=== PATIENT | male | born 1945 | race Caucasian/White ===

== ENCOUNTER 2019-07-30 04:40 | Outpatient (CLI) | payer OTHER | END 2019-07-30 04:41 | disposition critical access hospital (66) | LOC: EMS 04:40 | PROVIDERS: ATTEND Surgery | DX: R06.02 Shortness of breath (principal); R19.7 Diarrhea, unspecified; R60.0 Localized edema | CPT/HCPCS: A0425; A0427 ==

== ENCOUNTER 2019-07-30 04:58 | Inpatient (IN) | payer OTHER ==
--- NOTE | 2019-07-30 05:16 | ED Physician Documentation ---
PD HPI DYSPNEA - Stated complaint Stated Complaint: SOA/ COUGH/ - Chief complaint Chief Complaint: Resp - History obtained from History obtained from: Patient, EMS - History of Present Illness Timing - onset: How many weeks ago (2) Timing - onset during: Rest Timing - duration: Weeks (2) Timing - details: Gradual onset, Still present Inciting event(s): URI Improved by: Steroids Worsened by: Exertion, Coughing Associated symptoms: Cough, Bilateral edema, Other (weakness) Similar symptoms before: Diagnosis (COPD and pneumonia) Recently seen: Other (prescribed prednisone 10 days ago.) - Additional information Additional information: 74-year-old male with a history of COPD began to develop an exacerbation and called his doctor was started on some prednisone about 10 days ago he took it for about 4 or 5 days developed quite a bit of swelling in his lower extremities and discontinue the use of it. He has now developed progressive weakness and shortness of breath as well as profuse diarrhea. He has so much weakness that he is unable to care for himself at home. He does state that he was able to keep up on his fluids during this time but otherwise not able to care for himself. The patient reports his alcohol use as 2 shots of [place] daily and he states that over the past 4 days she has not had anything and last night he had 3 shots. Review of Systems Constitutional: reports: Fatigue, Sweats. denies: Fever, Chills Eyes: denies: Decreased vision Ears: denies: Ear pain Nose: reports: Rhinorrhea / runny nose, Congestion Throat: reports: Sore throat Cardiac: reports: Pedal edema. denies: Chest pain / pressure, Palpitations Respiratory: reports: Dyspnea, Cough GI: reports: Diarrhea. denies: Abdominal Pain, Nausea, Vomiting : denies: Dysuria, Frequency PD PAST MEDICAL HISTORY - Past Medical History Past Medical History: Yes Cardiovascular: Deep vein thrombosis, Pulmonary embolism Respiratory: COPD Neuro: None Endocrine/Autoimmune: None GI: GERD, Chronic diarrhea : None HEENT: None Psych: Depression, Post traumatic stress disorder Musculoskeletal: Osteoporosis Derm: Rosacea - Past Surgical History Past Surgical History: Yes General: Appendectomy, Splenectomy HEENT: Tonsil/Adenoidectomy - Present Medications Home Medications: Ambulatory Orders Medication Instructions Recorded Confirmed Albuterol Sulfate 90 mcg IH QID 02/03/13 07/30/19 Amlodipine Besylate 10 mg PO BID 02/03/13 07/30/19 Atenolol [Tenormin] 50 mg PO DAILY 02/03/13 07/30/19 Bupropion HCl 75 mg PO BID 02/03/13 07/30/19 Calcium Carbonate/Vitamin D3 2 each PO BID 02/03/13 07/30/19 [Calcium 250+D Tablet] Ipratropium/Albuterol [Duoneb] 3 ml INH QID 02/03/13 07/30/19 Loratadine [Children's 10 mg PO DAILY 02/03/13 07/30/19 Clear-Atadine] Montelukast [Singulair] 10 mg PO DAILY 02/03/13 07/30/19 Niacin [Niaspan] 500 mg PO TID 02/03/13 07/30/19 Warfarin [Coumadin] 3 mg PO 1700 02/03/13 07/30/19 Budesonide/Formoterol Fumarate 2 puffs INH BID 07/30/19 07/30/19 [Symbicort 160-4.5 Mcg Inhaler] Cholecalciferol (Vitamin D3) 1,000 unit PO DAILY 07/30/19 07/30/19 [Vitamin D3] Cyanocobalamin (Vitamin B-12) 1,000 mcg PO DAILY 07/30/19 07/30/19 [Vitamin B-12] Docusate Sodium [Dss] 250 mg PO BID 07/30/19 07/30/19 Fluticasone 110 Mcg [Flovent] 2 spray INH DAILY 07/30/19 07/30/19 Magnesium Oxide,Aspartate,Citr 420 mg PO BID 07/30/19 07/30/19 [Triple Magnesium Complex] Sildenafil Citrate 100 mg PO PRN PRN 07/30/19 07/30/19 Tiotropium [place] [Spiriva] 18 mcg INH DAILY 07/30/19 07/30/19 predniSONE [Deltasone] 20 mg PO DAILY 07/30/19 07/30/19 - Allergies Allergies/Adverse Reactions: Allergies Allergy/AdvReac Type Severity Reaction Status Date / Time No Known Drug Allergies Allergy Verified 07/30/19 05:12 - Social History Does the pt smoke?: No Smoking Status: Never smoker Does the pt drink ETOH?: No Does the pt have substance abuse?: No - Immunizations Immunizations are current?: Yes - POLST Patient has POLST: No POLST Status: Full Code PD ED PE NORMAL - Vitals Vital signs reviewed: Yes (tachy ) - General General: Alert and oriented X 3, Well developed/nourished, Other (appears dyspnic at rest is pale but interactive He is covered in feces. ) - HEENT HEENT: Atraumatic, PERRL, EOMI, Ears normal, Other (dry mucous membranes There is blood on the patients teeth. ) - Neck Neck: Supple, no meningeal sign, No bony TTP - Cardiac Cardiac: No murmur, Other (tachy ) - Respiratory Respiratory: Other (tachypneic at rest with rhonchi in the bases. Fair air movement. ) - Abdomen Abdomen: Soft, Non tender - Back Back: No CVA TTP, No spinal TTP - Derm Derm: Normal color, Warm and dry, No rash - Extremities Extremities: No deformity, Other (There is bilateral edema pitting present and there is feces streaming down the legs. There is the appearance of compression erythema to the left lateral calf and the right upper lateral arm. 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, No motor deficit, No sensory deficit, Normal speech Eye Opening: Spontaneous Motor: Obeys Commands Verbal: Oriented GCS Score: 15 - Psych Psych: Normal mood, Normal affect Results - Vitals Vitals: Vital Signs - 24 hr 07/30/19 07/30/19 07/30/19 04:53 05:08 05:32 Temperature 36.5 C Heart Rate 129 H 120 H 117 H Respiratory 22 22 22 Rate Blood Pressure 127/72 97/74 O2 Saturation 93 96 96 07/30/19 07/30/19 05:54 06:20 Temperature Heart Rate 110 H 111 H Respiratory 18 22 Rate Blood Pressure 106/67 O2 Saturation 96 97 Oxygen O2 Source Nasal cannula Oxygen Flow Rate 2 - Labs Labs: Laboratory Tests 07/30/19 07/30/19 07/30/19 05:12 05:40 05:40 WBC 16.3 H RBC 1.72 L Hgb 6.2 L* Hct 19.5 L* MCV 113.4 H MCH 36.0 H MCHC 31.8 L RDW 20.5 H Plt Count 304 MPV 9.3 Neut # (Auto) Not Reportable Lymph # (Auto) Not Reportable [place] # (Auto) Not Reportable Eos # (Auto) Not Reportable Baso # (Auto) Not Reportable Absolute Nucleated RBC Not Reportable Total Counted 100 Band Neuts % (Manual) 1 Abnorm Lymph % (Manual) 0 Myelocytes % 1 H Nucleated RBC % Not Reportable Neutrophils # (Manual) 13.4 H Lymphocytes # (Manual) 1.6 Monocytes # (Manual) 1.1 H Eosinophils # (Manual) 0.0 Basophils # (Manual) 0.0 Differential Comment MANUAL DIFFERENTIAL WBC Morphology NORMAL APPEARANCE Platelet Estimate NORMAL (130-450,000) Platelet Morphology NORMAL APPEARANCE RBC Morph Micro Appear 1+ MACROCYTOSIS PT INR Sodium 141 Potassium 3.7 Chloride 106 Carbon Dioxide 27 Anion Gap 8.0 BUN 30 H Creatinine 0.8 Estimated GFR (MDRD) 95 Glucose 133 H Lactic Acid Calcium 8.1 L Total Bilirubin 1.0 AST 26 ALT 22 Alkaline Phosphatase 70 B-Natriuretic Peptide Total Protein 5.1 L Albumin 2.6 L Globulin 2.5 Albumin/Globulin Ratio 1.0 Lipase 37 Urine Color Urine Clarity Urine pH Ur Specific [place] Urine Protein Urine Glucose (UA) Urine Ketones Urine Occult Blood Urine Nitrite Urine Bilirubin Urine Urobilinogen Ur Leukocyte Esterase Urine RBC Urine WBC Ur Squamous Epith Cells Urine Bacteria Ur Microscopic Review Urine Culture Comments Stl Occult Blood (IFOB) POSITIVE A Ethyl Alcohol < 5.0 Slides for Path Review Indicated 07/30/19 07/30/19 07/30/19 05:40 05:40 05:40 WBC RBC Hgb Hct MCV MCH MCHC RDW Plt Count MPV Neut # (Auto) Lymph # (Auto) [place] # (Auto) Eos # (Auto) Baso # (Auto) Absolute Nucleated RBC Total Counted Band Neuts % (Manual) Abnorm Lymph % (Manual) Myelocytes % Nucleated RBC % Neutrophils # (Manual) Lymphocytes # (Manual) Monocytes # (Manual) Eosinophils # (Manual) Basophils # (Manual) Differential Comment WBC Morphology Platelet Estimate Platelet Morphology RBC Morph Micro Appear PT 100.1 H INR > 10.0 H* Sodium Potassium Chloride Carbon Dioxide Anion Gap BUN Creatinine Estimated GFR (MDRD) Glucose Lactic Acid 2.9 H Calcium Total Bilirubin AST ALT Alkaline Phosphatase B-Natriuretic Peptide 59 Total Protein Albumin Globulin Albumin/Globulin Ratio Lipase Urine Color Urine Clarity Urine pH Ur Specific [place] Urine Protein Urine Glucose (UA) Urine Ketones Urine Occult Blood Urine Nitrite Urine Bilirubin Urine Urobilinogen Ur Leukocyte Esterase Urine RBC Urine WBC Ur Squamous Epith Cells Urine Bacteria Ur Microscopic Review Urine Culture Comments Stl Occult Blood (IFOB) Ethyl Alcohol Slides for Path Review 07/30/19 06:30 WBC RBC Hgb Hct MCV MCH MCHC RDW Plt Count MPV Neut # (Auto) Lymph # (Auto) [place] # (Auto) Eos # (Auto) Baso # (Auto) Absolute Nucleated RBC Total Counted Band Neuts % (Manual) Abnorm Lymph % (Manual) Myelocytes % Nucleated RBC % Neutrophils # (Manual) Lymphocytes # (Manual) Monocytes # (Manual) Eosinophils # (Manual) Basophils # (Manual) Differential Comment WBC Morphology Platelet Estimate Platelet Morphology RBC Morph Micro Appear PT INR Sodium Potassium Chloride Carbon Dioxide Anion Gap BUN Creatinine Estimated GFR (MDRD) Glucose Lactic Acid Calcium Total Bilirubin AST ALT Alkaline Phosphatase B-Natriuretic Peptide Total Protein Albumin Globulin Albumin/Globulin Ratio Lipase Urine Color YELLOW Urine Clarity CLEAR Urine pH 5.5 Ur Specific [place] 1.015 Urine Protein NEGATIVE Urine Glucose (UA) NEGATIVE Urine Ketones 15 H Urine Occult Blood SMALL H Urine Nitrite NEGATIVE Urine Bilirubin NEGATIVE Urine Urobilinogen 0.2 (NORMAL) Ur Leukocyte Esterase NEGATIVE Urine RBC 11-25 H Urine WBC 0-3 Ur Squamous Epith Cells RARE Squamous Urine Bacteria Rare Ur Microscopic Review INDICATED Urine Culture Comments NOT INDICATED Stl Occult Blood (IFOB) Ethyl Alcohol Slides for Path Review Procedures - IVC sono (time) 0515 Bedside IVC sono: IVC measures (cm) (1.53), IVC collapsed c insp (cm) (0.65), Euvolemia PD MEDICAL DECISION MAKING - ED course Complexity details: reviewed old records, reviewed results, re-evaluated patient, considered differential, d/w patient ED course: 74-year-old male with history of COPD who is on chronic anticoagulation for DVT and pulmonary embolism has developed profound weakness and he is found to have an INR over 10 and significant anemia.He has bruises and blood on his teeth I suspect he has some GI bleeding as well.He is stool guaiac is positive. 2 units of packed red blood cells are ordered he is given Tylenol and Benadryl for pretransfusion. He is administered a banana bag as well at 100 mL's an hour. He is administered Protonix intravenously as well. Dr. Velazquez is consulted in the case for admission and accepts the patient into the hospital. Departure - Departure Disposition: 66 [facility] DC/Xfer Clinical Impression: Elevated INR, Gingival bleeding Anemia Qualifiers: Iron deficiency anemia type: chronic blood loss GI bleeding Qualifiers: GI bleed type/associated pathology: unspecified gastrointestinal hemorrhage type Qualified Code(s): K92.2 - Gastrointestinal hemorrhage, unspecified Condition: Serious
[2019-07-30 05:53] LABS: BASOPHILS % (AUTO) 0.3 %; EOSINOPHILS % (AUTO) 1.1 %; LYMPHOCYTES % (AUTO) 14.3 %; MEAN CORPUSCULAR HGB CONC 31.8 g/dL (32.0-36.0); MEAN CORPUSCULAR VOLUME 113.4 fL (80.0-94.0); MEAN PLATELET VOLUME 9.3 fL (7.4-11.4); NEUTROPHILS % (AUTO) 70.1 %; PLT - PLATELET COUNT 304 10^3/uL (130-450); RED BLOOD COUNT 1.72 10^6/uL (4.70-6.10); RED CELL DISTRIBUTION WIDTH 20.5 % (12.0-15.0); WHITE BLOOD COUNT 16.3 x10^3/uL (4.8-10.8)
[2019-07-30 05:58] LABS: PT - PROTHROMBIN TIME 100.1 secs (9.9-12.6)
[2019-07-30] MEDS ORDERED: PHYTONADIONE 10 MG/ML AMP IVP STA (06:08)
[2019-07-30 06:09] LABS: INR > 10.0 (0.8-1.2)
[2019-07-30 06:10] LABS: ALBUMIN 2.6 g/dL (3.2-5.5); ALKALINE PHOSPHATASE 70 IU/L (42-121); ALT ALANINE AMINOTRANSFERASE 22 IU/L (10-60); AST ASPARTATE AMINOTRANSFERASE 26 IU/L (10-42); BUN - BLOOD UREA NITROGEN 30 mg/dL (6-20); CALCIUM 8.1 mg/dL (8.5-10.3); CARBON DIOXIDE - CO2 27 mmol/L (21-32); CHLORIDE 106 mmol/L (101-111); CREATININE 0.8 mg/dL (0.6-1.2); GFR - MDRD 95 (>89); GLUCOSE 133 mg/dL (70-100); LIPASE 37 U/L (22-51); SODIUM 141 mmol/L (135-145); TOTAL PROTEIN 5.1 g/dL (6.7-8.2)
[2019-07-30 06:13] LABS: HGB - HEMOGLOBIN 6.2 g/dL (14.0-18.0)
[2019-07-30 06:14] LABS: ABNORMAL LYMPHS % (MANUAL) 0 %
[2019-07-30] MEDS ORDERED: diphenhydrAMINE 25 MG CAPSULE PO STA (06:18)
[2019-07-30] MEDS ORDERED: ACETAMINOPHEN 325 MG TABLET PO STA (06:18)
[2019-07-30 06:25] LABS: BAND NEUTROPHILS % (MANUAL) 1 %; LYMPHOCYTES # (MANUAL) 1.6 10^3/uL (1.5-3.5); LYMPHOCYTES % (MANUAL) 10 %; MONOCYTES # (MANUAL) 1.1 10^3/uL (0.0-1.0); MYELOCYTES % (MANUAL) 1 %
[2019-07-30 06:31] LABS: DIFFERENTIAL COMMENT MANUAL DIFFERENTIAL; PLATELET ESTIMATE, MANUAL NORMAL (130-450,000) (NORMAL); PLATELET MORPHOLOGY NORMAL APPEARANCE (NORMAL)
[2019-07-30] MEDS ORDERED: FOLIC ACID INJ 1 MG, THIAMINE INJ 100 MG, MAGNESIUM SULFATE 2 GM, MULTIVITAMIN 10 ML in... IV STA ×5 (06:41)
[2019-07-30] MEDS ORDERED: D5.45NS W/20 MEQ KCL 1,000 ML IV ONE (06:42)
[2019-07-30] MEDS ORDERED: THIAMINE 100 MG/1 ML 2 ML MDV ONE (06:45)
[2019-07-30] MEDS ORDERED: PANTOPRAZOLE 40 MG VIAL IVP STA (06:45)
[2019-07-30 06:46] LABS: BILIRUBIN,URINE NEGATIVE (NEGATIVE); GLUCOSE, URINE (UA) NEGATIVE (NEGATIVE); KETONES,URINE (UA) 15 mg/dL (NEGATIVE); LEUKOCYTE ESTERASE, URINE NEGATIVE (NEGATIVE); NITRITE,URINE NEGATIVE (NEGATIVE); OCCULT BLOOD,URINE SMALL (NEGATIVE); PH,URINE 5.5 PH (5.0-7.5); PROTEIN,URINE NEGATIVE (NEGATIVE); UROBILINOGEN,URINE 0.2 (NORMAL) E.U./dL (NORMAL)
--- NOTE | 2019-07-30 06:47 | XRAY Report ---
Reason: chest pain Procedure Date: 07/30/2019 Accession Number: [id number] / [id number] Procedure: XR - Chest 1 View X-Ray CPT Code: 75630 Final Report FULL RESULT: EXAM: CHEST RADIOGRAPHY EXAM DATE: 07/30/2019 05:56 AM. CLINICAL HISTORY: Chest pain. COMPARISON: 03/12/2014 6:28 PM. TECHNIQUE: 1 view. FINDINGS: Lungs/Pleura: No focal opacities evident. No pleural effusion. No pneumothorax. Mediastinum: Within exam limitations, the cardiomediastinal contour is normal. Other: None. IMPRESSION: Normal single view chest. RADIA
[2019-07-30 06:48] LABS: CLARITY,URINE CLEAR (CLEAR)
[2019-07-30 07:04] LABS: BACTERIA,URINE Rare /HPF (None Seen); SQUAMOUS EPITHELIAL CELL,UR RARE Squamous (<= Few)
--- NOTE | 2019-07-30 08:28 | HISTORY & PHYSICAL EXAMINATION ---
Chief Complaint - Chief Complaint Chief Complaint: Weakness related to 10 days of diarrhea History of Present Illness - Admitted From Admitted From:: ER - History Obtained From History obtained from: Patient and his sister - History of Present Illness HPI Comment/Other: Mr. 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 Patient had an COPD exacerbation 2 months ago, saw his PCP and was given oral steroids. On the steroids the patient felt that his breathing improved. He ran out of steroids and was given a refill about 10 days ago. Four days ago, the patient noticed bilateral lower extremity edema with constant weeping, a sore throat and lymph node edema in his neck which he thought was related to the steroids so he stopped taking them. The patient and his sister report a steady functional decline with last known normal eight months ago. At that time he could walk 1 block, perform his ADLs and grocery shop for himself. The patient was so weak and unable to care for himself, and decided to call EMS at 4 am this morning (07/30/2019). History - Past Medical History Cardiovascular: reports: Hypertension, Deep vein thrombosis (provoked after a cross country ride in car with his brother. kept on coumadin for 7 years now.), Pulmonary embolism Respiratory: reports: COPD (sees pulmonology at [place]), Pneumonia (History of.), Shortness of breath Neuro: reports: Tremors Endocrine/Autoimmune: reports: None GI: reports: GERD, Chronic diarrhea (was severe after bowel resection in 1970's then slowed down and now can be with nml stool but occ diarrhea needs l operamide.) : reports: None HEENT: reports: None Psych: reports: Depression, Post traumatic stress disorder Musculoskeletal: reports: Osteoporosis (followed by specialist at the [place]) Derm: reports: Rosacea MRSA Hx?: No - Past Surgical History General: reports: Appendectomy, Bowel surgery (Resection of bowel after injury on offshore rig), Splenectomy HEENT: reports: Tonsil/Adenoidectomy - Family & Social History Family History: Mother: , Cancer, Father: , Brother: Renal Disease/Failure Family History Comment/Other: Father- early in early 60's of valvular dysfunction. Mother- at 72 of ovarian cancer. Brother-ESRD on HD Living arrangement: At home Living Situation: Alone Social History Notes: Functional status has been declining over the last 8 months - Substance History Use: Uses substance without health or social issues: Tobacco (Previous smoker, 39 year pack years), Alcohol (3 doubles of [place] per day) Abuse: Recurrent use of substance despite neg consequences: Alcohol Tobacco Details: Cigarettes (Previously, quit 16 years ago) - POLST Patient has POLST: No POLST Status: Full Code Meds/Allgy - Home Medications Home Medications: Ambulatory Orders Medication Instructions Recorded Confirmed Albuterol Sulfate 90 mcg IH QID 02/03/13 07/30/19 Amlodipine Besylate 10 mg PO BID 02/03/13 07/30/19 Atenolol [Tenormin] 50 mg PO DAILY 02/03/13 07/30/19 Bupropion HCl 75 mg PO BID 02/03/13 07/30/19 Calcium Carbonate/Vitamin D3 2 each PO BID 02/03/13 07/30/19 [Calcium 250+D Tablet] Ipratropium/Albuterol [Duoneb] 3 ml INH QID 02/03/13 07/30/19 Loratadine [Children's 10 mg PO DAILY 02/03/13 07/30/19 Clear-Atadine] Montelukast [Singulair] 10 mg PO DAILY 02/03/13 07/30/19 Niacin [Niaspan] 500 mg PO TID 02/03/13 07/30/19 Warfarin [Coumadin] 3 mg PO 1700 02/03/13 07/30/19 Budesonide/Formoterol Fumarate 2 puffs INH BID 07/30/19 07/30/19 [Symbicort 160-4.5 Mcg Inhaler] Cholecalciferol (Vitamin D3) 1,000 unit PO DAILY 07/30/19 07/30/19 [Vitamin D3] Cyanocobalamin (Vitamin B-12) 1,000 mcg PO DAILY 07/30/19 07/30/19 [Vitamin B-12] Docusate Sodium [Dss] 250 mg PO BID 07/30/19 07/30/19 Fluticasone 110 Mcg [Flovent] 2 spray INH DAILY 07/30/19 07/30/19 Magnesium Oxide,Aspartate,Citr 420 mg PO BID 07/30/19 07/30/19 [Triple Magnesium Complex] Sildenafil Citrate 100 mg PO PRN PRN 07/30/19 07/30/19 Tiotropium [place] [Spiriva] 18 mcg INH DAILY 07/30/19 07/30/19 predniSONE [Deltasone] 20 mg PO DAILY 07/30/19 07/30/19 - Allergies Allergies/Adverse Reactions: Allergies Allergy/AdvReac Type Severity Reaction Status Date / Time No Known Drug Allergies Allergy Verified 07/30/19 05:12 Review of Systems - Constitutional Constitutional: reports: Fatigue, Malaise, Weakness, Poor appetite. denies: Fever, Chills, Diaphoresis, Night sweats - Ears, Nose & Throat Ears, Nose & Throat: reports: Sore throat, Hoarseness - Cardiovascular Cariovascular: reports: Edema, Exertional dyspnea, Decr. exercise tolerance, Orthopnea. denies: Palpitations, Chest pain, Syncope - Respiratory Respiratory: reports: Cough, Sputum production, Orthopnea, SOB with exertion, Other (COPD related to agent orange exposure.). denies: Wheezing, Hemoptysis, Apnea, Pleuritic pain - Gastrointestinal Gastrointestinal: reports: Constipation (History of.), Diarrhea, Black stools, Bloody stools, Poor appetite. denies: Abdominal pain, Nausea, Vomiting, Coffee grounds emesis, Bloating - Genitourinary Genitourinary: reports: Frequency. denies: Dysuria, Incontinence - Musculoskeletal Musculoskeletal: denies: Muscle pain, Muscle weakness - Neurological Neurological: reports: Dizziness, Other (Bilateral hand tremor). denies: Focal weakness, Headache, Numbness - Psychiatric Psychiatric: reports: Other (PTSD). denies: Depression, Anxiety - Hematologic/Lymphatic Hematologic/Lymphatic: reports: Blood clots (DVT 7 years ago. On coumadin.), Lymphadenopathy. denies: Anemia Prior Level of Functionality: Eight months ago, patient was able to care for himself, do his own grocery shopping, and could walk one city block before becoming SOB Exam - Vital Signs Vital Signs: Vital Signs x48h Temp Pulse Resp BP Pulse Ox 07/30/19 08:11 36.7 C 106 H 20 101/64 96 01/08/20 06:20 111 H 22 106/67 97 07/30/19 05:54 110 H 18 96 07/30/19 05:32 117 H 22 97/74 96 07/30/19 05:08 120 H 22 96 07/30/19 04:53 36.5 C 129 H 22 127/72 93 - Physical Exam General Appearance: positive: No acute distress, Alert, Other (disheveled, unshaven, cachectic, large belly with skinny arms) Eyes Bilateral: positive: Normal inspection, PERRL, EOMI ENT: positive: Dry mucous membranes, Other (poor dentition) Neck: positive: No JVD, Lymphadenopathy (R) (shotty), Lymphadenopathy (L) (shotty, large node not palpated). negative: Stiff neck, Carotid bruit Respiratory: positive: Chest non-tender, Breath sounds nml. negative: No respiratory distress, Wheezes, Rales, Rhonchi Cardiovascular: positive: Regular rate & rhythm, No murmur, No gallop, Tachycardia. negative: Irregularly irregular, Systolic murmur, Diastolic murmur, Gallop/S3, Gallop/S4, Friction rub Peripheral Pulses: positive: 2+ Abdomen: positive: Non-tender, Nml bowel sounds, Hepatomegaly. negative: Tenderness, Guarding, Rebound, Splenomegaly Skin: positive: Warm, Dry, Pallor, Other (Weeping serous fluid right calf, 2 eschars from bleeding sites, no erythema/warmth. He has onychomycosis) Extremities: positive: Non-tender, Pedal edema Neurologic/Psychiatric: positive: Oriented x3, Sensation nml, Mood/affect nml. negative: Motor nml (tremor, bilateral upper hands, arms. Intermittent. More with intention. Cerebellar finger to nose normal.), Facial droop, Slurred/abnml speech Conclusion/Plan - Problem List (1) Acute anemia Conclusion/Plan: Related to GI blood loss from gastritis with alcohol abuse vs. colitis vs. primary tumor of small, large intestine or colon. Possible IBD or Crohns, however, less likely. 1. 2 units pRBCs 2. Protonix dose x1 3. Colonoscopy and endoscopy to identify source of GI bleed in the outpatient setting. Previous hx of polyps and he has been referred but he hasn't been able to do it. (2) Diarrhea Conclusion/Plan: 10 days of watery, black diarrhea. Possible infectious origin, exacerbation of previous bowel resection, or related to alcohol malabsorption. 1. Send stool culture. 2. CT of abdomen. Qualifiers: Diarrhea type: unspecified type Qualified Code(s): R19.7 - Diarrhea, unspecified (3) Macrocytic anemia Conclusion/Plan: MCV 113.6. 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 1. Discontinue oral vitamin B12. 2. Start B12 injections. 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 Patient not taking medication associated with increased metabolism. 1. Start oral folate after conclusion of banana bag infusions. (4) Supratherapeutic INR Conclusion/Plan: Patient had an provoked DVT 7 years ago during a road trip with his brother. He has been taking 3 mg oral coumadin since that time. 1. Discontinue oral coumadin. 2. Vitamin K in the emergency room. 3. Recheck INR and consider redosing with Vitamin K. 4. Consider having a Hematology consult to verify if he really needs to be on this 7 years later. (5) Leukocytosis Conclusion/Plan: WBC 16.3 on admit. Potentially related to oral prednisone. CXR, UA, and abdominal exam negative. Patient asplenic, so important to continue to monitor temperature and CBC daily. 1. Send blood cultures x2. Qualifiers: Leukocytosis type: unspecified Qualified Code(s): D72.829 - Elevated white blood cell count, unspecified (6) Severe protein-calorie malnutrition Conclusion/Plan: Patient has a poor appetite. Per patient and his sister, he often takes less than 50% of recommended intake (and this has been going on for > 3 months). He has a significantly reduced functional capacity, claiming that he can barely w alk half of a city block. He doesn't weigh himself so he doesn't know if he has lost weight. We are [facility] get [facility]. 1. Consult nutrition. (7) Alcohol abuse Conclusion/Plan: The patient acknowledges his alcohol abuse. Patient drinks 3 full glasses of [place] per day. 1. Consult SW to provide information about programs to quit and counseling. (8) Adult failure to thrive syndrome Conclusion/Plan: In the last 8 months, the patient has been experiencing a decline in his ability to care for himself. He doesn't feel that he is able to shop and cook for himself or practice ADLs. He can walk less than half a city block. 1. SW consult 1. PT/OT consult. (9) History of DVT (deep vein thrombosis) Conclusion/Plan: Patient reports a provoked DVT seven years ago after a road trip with his brother. He has been taking 3 mg oral coumadin since that time. 1. Consult outpatient hematology to review patient's history and and consider discontinuation of coumadin. 2. Hold coumadin at this time. (10) PTSD (post-traumatic stress disorder) Conclusion/Plan: Patient has a history of PTSD related to his service. [facility]. Continue buproprion. 2. Refer to psychiatry for current treatment (11) Orthopnea Conclusion/Plan: ROS positive for orthopnea, paroxysmal nocturnal dyspnea. Bilateral lower extremity edema that extends to his upper thighs. BNP 59 on admit. 1. ECHO complete to rule out heart failure. (12) Action tremor Conclusion/Plan: Intermittent tremor to bilateral hands for the past two years. The tremors often occur with movement of patient hands. The patient is unable to control the tremors. They do not occur all the time. Rapid alternating movements, finger to nose intact bilaterally. (13) Moderate chronic obstructive pulmonary disease Conclusion/Plan: Patient does not seem to be having a COPD exacerbation at present. His oxygen saturation on 2L O2 was 98%. Patient wears 2L O2 at home and reports his O2 sats are generally 88-92%. 1. Continue home meds- Symbicort, fluticasone, tiotropium, duonebs, montelukast. 2. RT consult. - Lab Results Lab results reviewed: Yes Fish Bones: 07/30/19 05:40 07/30/19 05:40 - Diagnostic Imaging Results Diagnostic Imaging Results: positive: Final report reviewed Diagnostic Imaging Results Comments: CHEST RADIOGRAPHY EXAM DATE: 07/30/2019 05:56 AM. CLINICAL HISTORY: Chest pain. COMPARISON: 03/12/2014 6:28 PM. TECHNIQUE: 1 view. FINDINGS: Lungs/Pleura: No focal opacities evident. No pleural effusion. No pneumothorax. Mediastinum: Within exam limitations, the cardiomediastinal contour is normal. Other: None. IMPRESSION: Normal single view chest. Core Measures - Anticipated LOS I expect patient to be DC'd or transferred within 96 hours.: Yes - DVT/VTE - Prophylaxis VTE/DVT Device ordered at admit?: Yes
[2019-07-30] MEDS ORDERED: MULTIVITAMIN 10 ML, THIAMINE INJ 100 MG, FOLIC ACID INJ 1 MG in D5.45NS W/20 MEQ KCL 1,... IV SCH (09:00)
[2019-07-30] MEDS: SODIUM CHLORIDE FLUSH 0.9% 10 ML SYRINGE IVP SCH ×2 (09:02→16:48)
[2019-07-30] MEDS: PANTOPRAZOLE 40 MG TABLET PO SCH (09:02)
[2019-07-30 09:10] LABS: % IRON SATURATION 12 % (20-50); IRON 39 ug/dL (45-182); TOTAL IRON BINDING CAPACITY 319 ug/dL (250-450); TRANSFERRIN 228 mg/dL (180-329)
[2019-07-30 09:22] LABS: ABSOLUTE RETICS # AUTO 0.207 10^6/uL (0.020-0.110); RED BLOOD COUNT 1.58 10^6/uL (4.70-6.10)
[2019-07-30 09:45] LABS: FOLATE 12.4 ng/mL (5.90 - >24.8)
[2019-07-30] MEDS ORDERED: ALBUTEROL NEB 2.5 MG/3 ML INH PRN (10:14)
[2019-07-30] MEDS: IPRATROPIUM/ALBUTEROL 3 ML NEB INH SCH ×3 (11:06→18:11)
[2019-07-30] MEDS: FORMOTEROL FUMARATE NEB 20 MCG/2 ML INH SCH ×2 (11:06→18:11)
[2019-07-30] MEDS: BUDESONIDE 0.5 MG/2 ML NEB INH SCH ×2 (11:06→18:11)
[2019-07-30 12:31] LABS: MUDS CUTOFF CONCENTRATIONS CUTOFF CONC BELOW:
[2019-07-30 12:50] LABS: AMPHETAMINE SCREEN,URINE NEGATIVE (NEGATIVE); BENZODIAZEPINES SCREEN, URINE NEGATIVE (NEGATIVE); COCAINE SCREEN URINE NEGATIVE (NEGATIVE); METHADONE SCREEN, URINE NEGATIVE (NEGATIVE); METHAMPHETAMINES SCREEN, URINE NEGATIVE (NEGATIVE); OPIATE SCREEN, URINE POSITIVE (NEGATIVE); OXYCODONE SCREEN, URINE NEGATIVE (NEGATIVE); PROPOXYPHENE SCREEN, URINE NEGATIVE (NEGATIVE); TRICYCLIC ANTIDEPRESSANT,URINE NEGATIVE (NEGATIVE)
[2019-07-30 13:54] LABS: INR 1.2 (0.8-1.2)
[2019-07-30] MEDS: SODIUM CHLORIDE 0.9% 1,000 ML IV SCH ×2 (16:42→16:48)
[2019-07-30] MEDS: BENZOCAINE/MENTHOL LOZENGE MM PRN (18:24)
[2019-07-30] MEDS ORDERED: CYANOCOBALAMIN 1,000 MCG/ML VIAL IM ONE (19:00)
[2019-07-30] MEDS: NYSTATIN 500000 UNITS/5 ML UDC PO SCH ×2 (19:07→21:42)
[2019-07-30 19:33] LABS: HGB - HEMOGLOBIN 7.9 g/dL (14.0-18.0); MEAN CORPUSCULAR HEMOGLOBIN 33.6 pg (27.0-31.0); MEAN CORPUSCULAR HGB CONC 32.5 g/dL (32.0-36.0); MEAN CORPUSCULAR VOLUME 103.4 fL (80.0-94.0); MEAN PLATELET VOLUME 9.4 fL (7.4-11.4); RED BLOOD COUNT 2.35 10^6/uL (4.70-6.10); RED CELL DISTRIBUTION WIDTH 21.8 % (12.0-15.0)
[2019-07-31] MEDS: SODIUM CHLORIDE FLUSH 0.9% 10 ML SYRINGE IVP SCH ×3 (00:33→16:01)
[2019-07-31] MEDS: SODIUM CHLORIDE 0.9% 1,000 ML IV SCH (02:50)
[2019-07-31] MEDS ORDERED: IOVERSOL 320 100 ML VIAL IVP ONE ×2 (05:58→06:24)
[2019-07-31 06:02] LABS: BASOPHILS % (AUTO) 0.2 %; EOSINOPHILS # (AUTO) 0.2 10^3/uL (0.0-0.7); EOSINOPHILS % (AUTO) 1.3 %; HGB - HEMOGLOBIN 7.5 g/dL (14.0-18.0); LYMPHOCYTES # (AUTO) 1.8 10^3/uL (1.5-3.5); LYMPHOCYTES % (AUTO) 14.4 %; MEAN CORPUSCULAR HEMOGLOBIN 34.1 pg (27.0-31.0); MEAN CORPUSCULAR HGB CONC 32.8 g/dL (32.0-36.0); MEAN CORPUSCULAR VOLUME 104.1 fL (80.0-94.0); MEAN PLATELET VOLUME 9.4 fL (7.4-11.4); MONOCYTES # (AUTO) 1.4 10^3/uL (0.0-1.0); MONOCYTES % (AUTO) 11.6 %; NEUTROPHILS # (AUTO) 8.6 10^3/uL (1.5-6.6); NEUTROPHILS % (AUTO) 70.1 %; PLT - PLATELET COUNT 229 10^3/uL (130-450); RED CELL DISTRIBUTION WIDTH 22.6 % (12.0-15.0); WHITE BLOOD COUNT 12.3 x10^3/uL (4.8-10.8)
[2019-07-31 06:12] LABS: CALCIUM 7.2 mg/dL (8.5-10.3); CREATININE 0.6 mg/dL (0.6-1.2); MAGNESIUM 1.5 mg/dL (1.7-2.8); PHOSPHORUS 1.6 mg/dL (2.5-4.6)
[2019-07-31 06:13] LABS: INR 0.9 (0.8-1.2); PT - PROTHROMBIN TIME 10.2 secs (9.9-12.6)
[2019-07-31 06:34] LABS: PLATELET ESTIMATE, MANUAL NORMAL (130-450,000) (NORMAL); PLATELET MORPHOLOGY NORMAL APPEARANCE (NORMAL)
[2019-07-31] MEDS: PANTOPRAZOLE 40 MG TABLET PO SCH (06:44)
[2019-07-31] MEDS: IPRATROPIUM/ALBUTEROL 3 ML NEB INH SCH ×4 (07:28→20:03)
[2019-07-31] MEDS: BUDESONIDE 0.5 MG/2 ML NEB INH SCH ×2 (07:33→20:03)
[2019-07-31] MEDS: FORMOTEROL FUMARATE NEB 20 MCG/2 ML INH SCH ×2 (07:38→20:01)
--- NOTE | 2019-07-31 08:33 | CT Report ---
Reason: dark stools, diarrhea Procedure Date: 07/31/2019 Accession Number: [id number] / [id number] Procedure: CT - Abdomen/Pelvis W CPT Code: Final Report FULL RESULT: EXAM: CT ABDOMEN AND PELVIS EXAM DATE: 07/31/2019 06:25 AM. CLINICAL HISTORY: Dark stools, diarrhea. COMPARISONS: None. TECHNIQUE: Routine helical CT imaging was performed through the abdomen and pelvis. IV contrast: OPTI 320 100ML. Enteric contrast: No. Reconstructions: Coronal and sagittal. In accordance with CT protocol optimization, one or more of the following dose reduction techniques were utilized for this exam: automated exposure control, adjustment of mA and/or KV based on patient size, or use of iterative reconstructive technique. FINDINGS: Lung Bases: Atelectasis is noted in the lung bases. Liver: Normal. No masses. Gallbladder/Bile Ducts: Numerous gallstones are seen within the gallbladder. There is no evidence of intrahepatic biliary duct dilatation. Spleen: Normal. Pancreas: Normal. Adrenal Glands: Normal. Kidneys: Normal. No masses or hydronephrosis. Peritoneal Cavity/Bowel: There is no CT evidence of acute appendicitis. Stool and gas are seen throughout the bowel. There are no dilated loops of bowel to suggest the presence of an obstruction. Pelvic Organs: No mass or cyst is seen within the pelvis. There is a small fat-containing left inguinal hernia. Vasculature: There is atherosclerosis of the aorta and its branches. There is no evidence of an abdominal aortic aneurysm. Bones: Compression fractures with 30-40% loss of the normal vertebral body height are noted involving the L1, L4 and L5 vertebral bodies. Other: None. IMPRESSION: Cholelithiasis without evidence of obstruction. Stool and gas throughout the colon without evidence of an obstruction. Compression fractures of the lumbar spine. This may be secondary to osteoporosis. A DEXA scan may be beneficial if further characterization is needed. [facility]
[2019-07-31] MEDS: NYSTATIN 500000 UNITS/5 ML UDC PO SCH ×4 (08:57→21:25)
--- NOTE | 2019-07-31 09:03 | PROVIDER PROGRESS NOTE ---
Subjective - Prog Note Date Prog Note Date: 07/31/19 Prog Note Time: 09:00 - Subjective Pt reports feeling: Improved Subjective: The patient was up out of bed and in a chair upon morning visit. Patient was disheveled, unshaven, and sick of laying in bed. He said that he didn't sleep very well. He denied pain, but was sick of being in bed. The patient was thirsty and was annoyed that he couldn't get anything to drink because he was NPO. Current Medications - Current Medications Current Medications: Active Medications Albuterol () 2.5 mg INH RTQ4H PRN PRN Reason: Wheezing Albuterol/Ipratropium (Duoneb) 3 ml INH RTQID [facility] Last Admin: 07/31/19 11:13 Dose: 3 ml Budesonide (Pulmicort) 0.5 mg INH RTBID [facility] Last Admin: 07/31/19 07:33 Dose: 0.5 mg Formoterol Fumarate (Perforomist) 20 mcg INH RTBID [facility] Last Admin: 07/31/19 07:38 Dose: 20 mcg Calcium Gluconate 1,000 mg/ (Sodium Chloride) 60 mls @ 60 mls/hr IV ONCE ONE Stop: 07/31/19 12:29 Last Admin: 07/31/19 11:10 Dose: 60 mls/hr Influenza Virus Vaccine Quadrival (Fluarix Quad 3490-3119 Syringe) 60 mcg IM .ONCE ONE Stop: 08/01/19 09:01 Nystatin (Mycostatin) 5 ml PO QID [facility] Last Admin: 07/31/19 08:57 Dose: 5 ml Pantoprazole Sodium (Protonix) 40 mg PO QDAC [facility] Last Admin: 07/31/19 06:44 Dose: 40 mg Sodium Chloride (Normal Saline Flush 0.9%) 10 ml IVP PRN PRN PRN Reason: NEEDED PER PROVIDER ORDERS Sodium Chloride (Normal Saline Flush 0.9%) 10 ml IVP 0100,0900,1700 [facility] Last Admin: 07/31/19 08:57 Dose: 10 ml Throat Lozenges (Cepacol) 1 lozenge MM Q2HR PRN PRN Reason: Throat pain Last Admin: 07/30/19 18:24 Dose: 1 lozenge Albuterol Sulfate 90 mcg IH QID 02/03/13 Amlodipine Besylate 10 mg PO BID 02/03/13 Atenolol [Tenormin] 50 mg PO DAILY 02/03/13 Bupropion HCl 75 mg PO BID 02/03/13 Calcium Carbonate/Vitamin D3 [Calcium 250+D Tablet] 2 each PO BID 02/03/13 Ipratropium/Albuterol [Duoneb] 3 ml INH QID 02/03/13 Loratadine [Children's Clear-Atadine] 10 mg PO DAILY 02/03/13 Montelukast [Singulair] 10 mg PO DAILY 02/03/13 Niacin [Niaspan] 500 mg PO TID 02/03/13 Warfarin [Coumadin] 3 mg PO 1700 02/03/13 Budesonide/Formoterol Fumarate [Symbicort 160-4.5 Mcg Inhaler] 2 puffs INH BID 07/30/19 Cholecalciferol (Vitamin D3) [Vitamin D3] 1,000 unit PO DAILY 07/30/19 Cyanocobalamin (Vitamin B-12) [Vitamin B-12] 1,000 mcg PO DAILY 07/30/19 Docusate Sodium [Dss] 250 mg PO BID 07/30/19 Fluticasone 110 Mcg [Flovent] 2 spray INH DAILY 07/30/19 Magnesium Oxide,Aspartate,Citr [Triple Magnesium Complex] 420 mg PO BID 07/30/19 Sildenafil Citrate 100 mg PO PRN PRN 07/30/19 Tiotropium [place] [Spiriva] 18 mcg INH DAILY 07/30/19 predniSONE [Deltasone] 20 mg PO DAILY 07/30/19 Objective - Vital Signs/Intake & Output Reviewed Vital Signs: Yes Vital Signs: Vital Signs x48h Temp Pulse Pulse Resp BP Pulse Ox 07/31/19 08:07 36.7 C 106 H 18 106/57 L 98 07/31/19 07:38 103 H 16 07/31/19 05:16 107/64 07/31/19 05:00 36.7 C 92 18 96/53 L 99 Intake & Output: Intake & Output 07/28/19 07/29/19 07/30/19 07/31/19 23:59 23:59 23:59 23:59 Intake Total 3405.2 1000 Output Total 310 575 Balance 3095.2 425 - Objective General Appearance: positive: No acute distress, Alert. negative: Moderate distress, Severe distress, Anxious Eyes Bilateral: positive: Normal inspection, PERRL, EOMI Neck: positive: Nml inspection Respiratory: positive: Chest non-tender, No respiratory distress, Wheezes (Expiratory wheezes initially which improved after patient coughed. Fine rales in the bases bilaterally. Productive cough.), Rales Cardiovascular: positive: Regular rate & rhythm, No murmur, No gallop, Other (Distant heart sounds) Peripheral Pulses: 2+ Radial (R), 2+ Radial (L), 2+ Femoral (R), 2+ Femoral (L) Abdomen: positive: Non-tender, Nml bowel sounds, Hepatomegaly, Other (Soft and distended) Back: positive: Nml inspection Skin: positive: Warm, Dry, Pallor Extremities: positive: Pedal edema (L>R for edema), Other (Edema noted to upper thighs) Neurologic/Psychiatric: positive: Oriented x3, Mood/affect nml, Weakness (Upper and lower extremity strength are 4/5) - Lab Results Fish Bones: 07/31/19 05:40 07/31/19 05:40 Other Labs: Laboratory Tests 07/30/19 07/31/19 07/31/19 05:40 05:40 05:40 RBC 1.58 L Reticulocyte % (Auto) 13.09 H Absolute Retic 0.207 H INR 0.9 Calcium 7.2 L Phosphorus 1.6 L Magnesium 1.5 L - Diagnostic Imaging Diagnostic Imaging Results: positive: Final report reviewed, See rad report Diagnostic Imaging Comments: CT abdomen/pelvis with contrast 07/31/2019-Atelectasis in lung bases, cholelithiasis, no evidence of intra-hepatic biliary duct dilation. Left inguinal hernia noted. ABX Reporting Has patient been on IV antibiotics over the past 48 hours?: No Sepsis Event Note (H) - Sepsis Criteria Sepsis Criteria: Recorded Heart Rate greater than 90 bpm, WBC count greater than 12,000 or less than 4000, Metabolic: lactate > 2 mmol/L, Hematologic: platelets < 100,000; INR > 1.5, or a PTT>60 seconds Assessment/Plan - Problem List (1) Acute anemia Impression: Patient admitted after approximately 10 days of black diarrhea. Upon admit patient Hgb 6.2, patient was pale and tachycardic. After 2 units pRBCs yesterday 07/30/2019 and no black stools since, patient's Hgb 7.5 and Hct 22.9 07/31/2019 0540. 1. Give 1 unit pRBCs for continued low Hbg and tachycardia this morning. 2. CBC daily. 3. Monitoring for evidence of GI bleeding. (2) Diarrhea Impression: Patient was admitted after black diarrhea for approximately 10 days. Patient has not had a BM since admit. Possible etiologies include infectious, exacerbation of previous bowel resection, or related to alcohol malabsorption or gastritis. 1. Send stool culture when sample obtained. 2. PPI oral daily. 3. Recommend outpatient colonoscopy/endoscopy after discharge to look for source of bleeding. Qualifiers: Diarrhea type: unspecified type Qualified Code(s): R19.7 - Diarrhea, unspecified (3) Macrocytic anemia Impression: Patient was admitted with MCV 113.4. 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 B12 level 246. 1. Discontinued oral B12. 2. Started B12 injections yesterday. 3. Will recommend patient continue weekly injections at discharge. 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 Patient not taking any medications associated with increased metabolism. Absolute reticulocyte count 0.207 high. 1. Monitor for GI bleed. 2. Daily CBC. 3. Start oral folate. 4. check LDH 5. check haptoglobin 6. Fractionate bili (4) Supratherapeutic INR Impression: Resolved. Patient's PT in 10.2 and INR 0.9 07/31/2019. 1. Continue to hold coumadin. 2. Outpatient hematology visit to discuss continued use of coumadin. (5) Leukocytosis Impression: Improving. WBC 15 07/30/2019 1930 which downtrended to 12.3 07/31/2019/ 0540. Blood cultures x2-no growth to date. UA-WNL No elevated temperatures. Qualifiers: Leukocytosis type: unspecified Qualified Code(s): D72.829 - Elevated white blood cell count, unspecified (6) Severe protein-calorie malnutrition Impression: Patient ate 75% of a general diet for dinner 07/30/2019. Patient NPO at midnight for a CT abdomen/pelvis, which was discontinued before breakfast. Nutrition consulted yesterday. (7) Alcohol abuse Impression: Patient drinks 3 glasses of [place] per day to reduce his anxiety and re lax. Patient has stated that he would like to quit drinking. Social work consult for resources about programs to help him quit. So far no withdrawal. (8) Adult failure to thrive syndrome Impression: Patient lives alone and has been experiencing a functional decline for about the last 8 months. Before admit to hospital, the patient was unable to care for hi mself which included ADLs, cooking, cleaning, etc. Social work consult to discuss increase support at home. He qualifies for HH and we will order at discharge: HH RN for is COPD, PT/OT, Social work for ongoing resource identification. (9) History of DVT (deep vein thrombosis) Impression: Patient had an provoked DVT seven years ago, after an extended car trip with his brother. Patient has remained on coumadin since that time. Upon admit patient had supratherapeutic INR. Suggest patient see an outpatient customer trainer at the [facility] to discuss discontinuing the coumadin. (10) PTSD (post-traumatic stress disorder) Impression: resumed buprion. Will consider outpatient therapy. Social work has already started identifying a list. (11) Orthopnea Impression: Patient has described shortness of breath with exertion and paroxysmal noctural dyspnea. He sleeps with two pillows at night. 1. ECHO complete ordered.His echocardiogram has a hyperdynamic ventricle and his ejection fraction is up to 75%. There is no atrial enlargement. No valvular heart disease.As such, his orthopnea is most likely from his COPD and not cardiac. 2. Discontinue continuous IV fluids. 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 Patient has noticed these for the last two years. They do not always occur. They appear less noticeable today than yesterday. May be due to alcohol abuse and cerebellar affect of toxicity. He should consider a neurology consult if available. (13) Moderate chronic obstructive pulmonary disease Impression: Patient has been diagnosed with COPD and believes that it is related to agent orange exposure. He wears 2L O2 per nasal cannula at home. Atelectasis noted in CT abdomen/pelvis. Fine rales heard in the bases bilaterally. Encouraged coughing and deep breathing. Incentive spirometer. Encourage patient out of bed to chair and possible ambulation with PT. Watched patient work with PT and OT. He was very short of breath with muscle strength testing. 1. Continue home medications. 2. Follow[facility]up [facility] after [facility] to optimize COPD treatment.
[2019-07-31] MEDS ORDERED: CALCIUM GLUCONATE 1,000 MG in SODIUM CHLORIDE 0.9% 50 ML IV ONE ×2 (10:24→11:30)
[2019-07-31] MEDS ORDERED: MAGNESIUM SULFATE 2 GRAM 2 GM/50 ML BAG IV ONE (10:36)
[2019-07-31] MEDS: THIAMINE 100 MG TABLET PO SCH (12:58)
[2019-07-31] MEDS: FOLIC ACID 1 MG TABLET PO SCH (12:58)
[2019-07-31] MEDS ORDERED: FUROSEMIDE 40 MG/4 ML VIAL IVP STA (15:40)
[2019-07-31] MEDS: methylPREDNISolone SUCCINATE 40 MG/ML VIAL IVP SCH ×2 (16:01→21:25)
[2019-07-31 16:10] LABS: ABG BASE EXCESS 0.4 mmol/L (-2.0-3.0); ABG HCO3 23.7 mmol/L (22.0-26.0); ABG OXYGEN SATURATION 94 % (94-98); ABG PCO2 34 mmHg (34-45); ABG PH 7.47 (7.35-7.45); ABG PO2 66 mmHg (80-100); ABG TCO2 24.7 MMOL/L (21.0-29.0); ALLEN TEST POSITIVE
--- NOTE | 2019-07-31 18:54 | PROVIDER PROGRESS NOTE ---
Progress Note July 31, 2019 15: 20- 15:40 19:00 20 minutes was spent at the bedside with this gentleman. I was called for sudden respiratory distress after he finished his third unit of packed cells. I was concerned about trolley or taco or fluid overload since he has severe pedal edema, and was up 3 kg. On examination he was normotensive with a systolic in the 130s. Tachycardic. Struggling to breathe tachypneic and almost nearly tripoding with use of accessory muscles with rib cage visible sternocleidomastoid muscles visible. He had prolonged and exhalation but no outright wheezing. Right lung very rhonchus. Slightly tachycardic. Abdomen was benign. Legs have severe edema from the knees on down with swollen sausage feet. I initially ordered Lasix and then steroids. Then I realized the trolley will contraindicate Lasix until I know for sure. Chest x-ray was checked but as of 7 PM it is still not been read even though it was ordered stat. In the meantime the patient is only received steroids and within 15 minutes his respiratory rate had come down, was not struggling to breathe. We really did not give him any intervention for him to feel so much better so fast. He explains that he had gotten caught up in the bed sheets. He could not get out of the bed sheets and started to struggle. Which then induced a sense of panic. Then he started hyperventilating and went into respiratory distress. In retrospect I do not think it is trolley or taco or fluid overload. He is received Solu-Medrol only. I am awaiting the chest x-ray. 20 minutes of critical care assessment was spent at the bedside.
--- NOTE | 2019-07-31 19:00 | XRAY Report ---
Reason: sudden sob Procedure Date: 07/31/2019 Accession Number: [id number] / [id number] Procedure: XR - Chest 1 View X-Ray CPT Code: 25284 Final Report FULL RESULT: EXAM: CHEST RADIOGRAPHY EXAM DATE: 07/31/2019 03:55 PM. CLINICAL HISTORY: Sudden sob. COMPARISON: CHEST 1 VIEW 07/30/2019 5:39 AM. TECHNIQUE: 1 view. FINDINGS: Lungs/Pleura: Emphysematous lung disease. no focal opacities evident. No pleural effusion. No pneumothorax. Mediastinum: Within exam limitations, the cardiomediastinal contour is normal. Other: None. IMPRESSION: Emphysematous lung disease.No acute cardiopulmonary process. [facility]
[2019-08-01] MEDS: SODIUM CHLORIDE FLUSH 0.9% 10 ML SYRINGE IVP SCH ×3 (01:48→17:12)
[2019-08-01] MEDS: BENZOCAINE/MENTHOL LOZENGE MM PRN (01:52)
[2019-08-01 04:59] LABS: BASOPHILS % (AUTO) 0.1 %; HGB - HEMOGLOBIN 8.8 g/dL (14.0-18.0); LYMPHOCYTES # (AUTO) 0.4 10^3/uL (1.5-3.5); LYMPHOCYTES % (AUTO) 4.2 %; MEAN CORPUSCULAR HEMOGLOBIN 33.2 pg (27.0-31.0); MEAN CORPUSCULAR HGB CONC 32.6 g/dL (32.0-36.0); MEAN CORPUSCULAR VOLUME 101.9 fL (80.0-94.0); MEAN PLATELET VOLUME 9.8 fL (7.4-11.4); MONOCYTES # (AUTO) 0.3 10^3/uL (0.0-1.0); MONOCYTES % (AUTO) 2.7 %; NEUTROPHILS # (AUTO) 8.8 10^3/uL (1.5-6.6); NEUTROPHILS % (AUTO) 92.1 %; PLT - PLATELET COUNT 227 10^3/uL (130-450); RED BLOOD COUNT 2.65 10^6/uL (4.70-6.10); RED CELL DISTRIBUTION WIDTH 21.4 % (12.0-15.0); WHITE BLOOD COUNT 9.5 x10^3/uL (4.8-10.8)
[2019-08-01 05:08] LABS: INR 0.9 (0.8-1.2); PT - PROTHROMBIN TIME 10.1 secs (9.9-12.6)
[2019-08-01 05:10] LABS: CALCIUM 7.8 mg/dL (8.5-10.3); CREATININE 0.7 mg/dL (0.6-1.2)
[2019-08-01 05:28] LABS: PLATELET ESTIMATE, MANUAL NORMAL (130-450,000) (NORMAL)
[2019-08-01] MEDS: methylPREDNISolone SUCCINATE 40 MG/ML VIAL IVP SCH ×3 (06:28→21:36)
[2019-08-01] MEDS: PANTOPRAZOLE 40 MG TABLET PO SCH (06:28)
[2019-08-01] MEDS: SODIUM CHLORIDE FLUSH 0.9% 10 ML SYRINGE IVP PRN ×2 (06:28→14:17)
[2019-08-01] MEDS: PHENOL THROAT SPRAY 177 ML MM PRN ×2 (06:36→16:34)
[2019-08-01] MEDS: BUDESONIDE 0.5 MG/2 ML NEB INH SCH ×3 (07:40→21:44)
[2019-08-01] MEDS: FORMOTEROL FUMARATE NEB 20 MCG/2 ML INH SCH ×3 (07:40→21:43)
[2019-08-01] MEDS: IPRATROPIUM/ALBUTEROL 3 ML NEB INH SCH ×5 (07:40→21:44)
[2019-08-01 07:42] LABS: MAGNESIUM 1.7 mg/dL (1.7-2.8); PHOSPHORUS 1.6 mg/dL (2.5-4.6)
[2019-08-01] MEDS: NYSTATIN 500000 UNITS/5 ML UDC PO SCH ×4 (08:50→21:36)
[2019-08-01] MEDS: THIAMINE 100 MG TABLET PO SCH (08:50)
[2019-08-01] MEDS: FOLIC ACID 1 MG TABLET PO SCH (08:50)
[2019-08-01] MEDS ORDERED: FLU VACC QS2019-20(6MOS UP)/PF 60 MCG/0.5 ML SYRINGE IM ONE (09:00)
--- NOTE | 2019-08-01 09:49 | PROVIDER PROGRESS NOTE ---
<PapitoBatool - Last Filed: 08/01/19 11:34> Subjective - Prog Note Date Prog Note Date: 08/01/19 Prog Note Time: 09:50 - Subjective Pt reports feeling: Improved Subjective: Patient was sitting up at the side of the bed upon arrival. He says that he feels well. He is enjoying feeling as well as he does. Current Medications - Current Medications Current Medications: Active Medications Albuterol () 2.5 mg INH RTQ4H PRN PRN Reason: Wheezing Albuterol/Ipratropium (Duoneb) 3 ml INH RTQID [facility] Last Admin: 07/31/19 20:03 Dose: 3 ml Budesonide (Pulmicort) 0.5 mg INH RTBID [facility] Last Admin: 07/31/19 20:03 Dose: 0.5 mg Folic Acid () 1 mg PO DAILY [facility] Last Admin: 08/01/19 08:50 Dose: 1 mg Formoterol Fumarate (Perforomist) 20 mcg INH RTBID [facility] Last Admin: 07/31/19 20:01 Dose: 20 mcg Methylprednisolone (Solu-Medrol (40mg Vial)) 40 mg IVP TID [facility] Last Admin: 08/01/19 06:28 Dose: 40 mg Nystatin (Mycostatin) 5 ml PO QID [facility] Last Admin: 08/01/19 08:50 Dose: 5 ml Pantoprazole Sodium (Protonix) 40 mg PO QDAC [facility] Last Admin: 08/01/19 06:28 Dose: 40 mg Phenol/Menthol (Chloraseptic) 2 sprays MM Q2HR PRN PRN Reason: Throat Pain Last Admin: 08/01/19 06:36 Dose: 2 sprays Sodium Chloride (Normal Saline Flush 0.9%) 10 ml IVP PRN PRN PRN Reason: NEEDED PER PROVIDER ORDERS Last Admin: 08/01/19 06:28 Dose: 10 ml Sodium Chloride (Normal Saline Flush 0.9%) 10 ml IVP 0100,0900,1700 [facility] Last Admin: 08/01/19 09:13 Dose: 10 ml Thiamine HCl (Vitamin B-1) 100 mg PO DAILY [facility] Last Admin: 08/01/19 08:50 Dose: 100 mg Throat Lozenges (Cepacol) 1 lozenge MM Q2HR PRN PRN Reason: Throat pain Last Admin: 08/01/19 01:52 Dose: 1 lozenge Albuterol Sulfate 90 mcg IH QID 02/03/13 Amlodipine Besylate 10 mg PO BID 02/03/13 Atenolol [Tenormin] 50 mg PO DAILY 02/03/13 Bupropion HCl 75 mg PO BID 02/03/13 Calcium Carbonate/Vitamin D3 [Calcium 250+D Tablet] 2 each PO BID 02/03/13 Ipratropium/Albuterol [Duoneb] 3 ml INH QID 02/03/13 Loratadine [Children's Clear-Atadine] 10 mg PO DAILY 02/03/13 Montelukast [Singulair] 10 mg PO DAILY 02/03/13 Niacin [Niaspan] 500 mg PO TID 02/03/13 Warfarin [Coumadin] 3 mg PO 1700 02/03/13 Budesonide/Formoterol Fumarate [Symbicort 160-4.5 Mcg Inhaler] 2 puffs INH BID 07/30/19 Cholecalciferol (Vitamin D3) [Vitamin D3] 1,000 unit PO DAILY 07/30/19 Cyanocobalamin (Vitamin B-12) [Vitamin B-12] 1,000 mcg PO DAILY 07/30/19 Docusate Sodium [Dss] 250 mg PO BID 07/30/19 Fluticasone 110 Mcg [Flovent] 2 spray INH DAILY 07/30/19 Magnesium Oxide,Aspartate,Citr [Triple Magnesium Complex] 420 mg PO BID 07/30/19 Sildenafil Citrate 100 mg PO PRN PRN 07/30/19 Tiotropium [place] [Spiriva] 18 mcg INH DAILY 07/30/19 predniSONE [Deltasone] 20 mg PO DAILY 07/30/19 Objective - Vital Signs/Intake & Output Reviewed Vital Signs: Yes Vital Signs: Vital Signs x48h Temp Pulse Resp BP Pulse Ox 08/01/19 08:12 36.3 C L 91 18 110/73 98 08/01/19 05:00 36.2 C L 90 18 104/62 98 Intake & Output: Intake & Output 07/29/19 07/30/19 07/31/19 08/01/19 23:59 23:59 23:59 23:59 Intake Total 3405.2 3061 480 Output Total 310 1550 225 Balance 3095.2 1511 255 - Objective General Appearance: positive: No acute distress, Alert Eyes Bilateral: positive: Normal inspection, PERRL, EOMI ENT: positive: ENT inspection nml, No signs of dehydration Neck: positive: Nml inspection Respiratory: positive: Chest non-tender, Breath sounds nml (Diminished breath sounds in the bases.) Cardiovascular: positive: Regular rate & rhythm, No murmur, No gallop Peripheral Pulses: 2+ Radial (R), 2+ Radial (L), 2+ Dorsalis pedis (R), 2+ Dorsalis pedis (L) Abdomen: positive: Non-tender, Nml bowel sounds, Hepatomegaly. negative: No distention Back: positive: Nml inspection Skin: positive: Color nml, No rash, Warm, Dry Extremities: positive: Pedal edema - Lab Results Fish Bones: 08/01/19 04:35 08/01/19 04:35 Other Labs: Lab Results x24hrs 08/01/19 08/01/19 08/01/19 Range/Units 04:35 04:35 04:35 WBC (4.8-10.8) x10^3/uL RBC (4.70-6.10) 10^6/uL Hgb (14.0-18.0) g/dL Hct (42.0-52.0) % MCV (80.0-94.0) fL MCH (27.0-31.0) pg MCHC (32.0-36.0) g/dL RDW (12.0-15.0) % Plt Count (130-450) 10^3/uL MPV (7.4-11.4) fL Neut # (Auto) (1.5-6.6) 10^3/uL Lymph # (Auto) (1.5-3.5) 10^3/uL Edwards # (Auto) (0.0-1.0) 10^3/uL Eos # (Auto) (0.0-0.7) 10^3/uL Baso # (Auto) (0.0-0.1) 10^3/uL Absolute Nucleated RBC x10^3/uL Nucleated RBC % /100WBC Manual Slide Review Platelet Estimate (NORMAL) RBC Morph Micro Appear (NORMAL) PT 10.1 (9.9-12.6) secs INR 0.9 (0.8-1.2) Bld Gas Analysis Time Sample Site ABG pH (7.35-7.45) ABG pCO2 (34-45) mmHg ABG pO2 (80-100) mmHg ABG HCO3 (22.0-26.0) mmol/L ABG Total CO2 (21.0-29.0) MMOL/L ABG O2 Saturation (94-98) % ABG Base Excess (-2.0-3.0) mmol/L Janes Test O2 Delivery Device O2 Liters/Min LPM Sodium 139 (135-145) mmol/L Potassium 4.2 (3.5-5.0) mmol/L Chloride 109 (101-111) mmol/L Carbon Dioxide 25 (21-32) mmol/L Anion Gap 5.0 L (6-13) BUN 12 (6-20) mg/dL Creatinine 0.7 (0.6-1.2) mg/dL Estimated GFR (MDRD) 111 (>89) Glucose 178 H (70-100) mg/dL Calcium 7.8 L (8.5-10.3) mg/dL Phosphorus 1.6 L (2.5-4.6) mg/dL Magnesium 1.7 (1.7-2.8) mg/dL B-Natriuretic Peptide (5-100) pg/mL Blood Type Antibody Screen Crossmatch IS Only 08/01/19 07/31/19 07/31/19 Range/Units 04:35 16:04 05:40 WBC 9.5 (4.8-10.8) x10^3/uL RBC 2.65 L (4.70-6.10) 10^6/uL Hgb 8.8 L (14.0-18.0) g/dL Hct 27.0 L (42.0-52.0) % MCV 101.9 H (80.0-94.0) fL MCH 33.2 H (27.0-31.0) pg MCHC 32.6 (32.0-36.0) g/dL RDW 21.4 H (12.0-15.0) % Plt Count 227 (130-450) 10^3/uL MPV 9.8 (7.4-11.4) fL Neut # (Auto) 8.8 H (1.5-6.6) 10^3/uL Lymph # (Auto) 0.4 L (1.5-3.5) 10^3/uL Edwards # (Auto) 0.3 (0.0-1.0) 10^3/uL Eos # (Auto) 0.0 (0.0-0.7) 10^3/uL Baso # (Auto) 0.0 (0.0-0.1) 10^3/uL Absolute Nucleated RBC 0.02 x10^3/uL Nucleated RBC % 0.2 /100WBC Manual Slide Review Indicated Platelet Estimate NORMAL (130-450,000) (NORMAL) RBC Morph Micro Appear 1+ OVALOCYTES (NORMAL) PT (9.9-12.6) secs INR (0.8-1.2) Bld Gas Analysis Time 1604 Sample Site RIGHT RADIAL ABG pH 7.47 H (7.35-7.45) ABG pCO2 34 (34-45) mmHg ABG pO2 66 L (80-100) mmHg ABG HCO3 23.7 (22.0-26.0) mmol/L ABG Total CO2 24.7 (21.0-29.0) MMOL/L ABG O2 Saturation 94 (94-98) % ABG Base Excess 0.4 (-2.0-3.0) mmol/L Janes Test POSITIVE O2 Delivery Device NASAL CANNULA O2 Liters/Min 3.00 LPM Sodium (135-145) mmol/L Potassium (3.5-5.0) mmol/L Chloride (101-111) mmol/L Carbon Dioxide (21-32) mmol/L Anion Gap (6-13) BUN (6-20) mg/dL Creatinine (0.6-1.2) mg/dL Estimated GFR (MDRD) (>89) Glucose (70-100) mg/dL Calcium (8.5-10.3) mg/dL Phosphorus (2.5-4.6) mg/dL Magnesium (1.7-2.8) mg/dL B-Natriuretic Peptide 177 H (5-100) pg/mL Blood Type Antibody Screen Crossmatch IS Only 07/30/19 Range/Units 06:35 WBC (4.8-10.8) x10^3/uL RBC (4.70-6.10) 10^6/uL Hgb (14.0-18.0) g/dL Hct (42.0-52.0) % MCV (80.0-94.0) fL MCH (27.0-31.0) pg MCHC (32.0-36.0) g/dL RDW (12.0-15.0) % Plt Count (130-450) 10^3/uL MPV (7.4-11.4) fL Neut # (Auto) (1.5-6.6) 10^3/uL Lymph # (Auto) (1.5-3.5) 10^3/uL Edwards # (Auto) (0.0-1.0) 10^3/uL Eos # (Auto) (0.0-0.7) 10^3/uL Baso # (Auto) (0.0-0.1) 10^3/uL Absolute Nucleated RBC x10^3/uL Nucleated RBC % /100WBC Manual Slide Review Platelet Estimate (NORMAL) RBC Morph Micro Appear (NORMAL) PT (9.9-12.6) secs INR (0.8-1.2) Bld Gas Analysis Time Sample Site ABG pH (7.35-7.45) ABG pCO2 (34-45) mmHg ABG pO2 (80-100) mmHg ABG HCO3 (22.0-26.0) mmol/L ABG Total CO2 (21.0-29.0) MMOL/L ABG O2 Saturation (94-98) % ABG Base Excess (-2.0-3.0) mmol/L Janes Test O2 Delivery Device O2 Liters/Min LPM Sodium (135-145) mmol/L Potassium (3.5-5.0) mmol/L Chloride (101-111) mmol/L Carbon Dioxide (21-32) mmol/L Anion Gap (6-13) BUN (6-20) mg/dL Creatinine (0.6-1.2) mg/dL Estimated GFR (MDRD) (>89) Glucose (70-100) mg/dL Calcium (8.5-10.3) mg/dL Phosphorus (2.5-4.6) mg/dL Magnesium (1.7-2.8) mg/dL B-Natriuretic Peptide (5-100) pg/mL Blood Type B POSITIVE Antibody Screen NEGATIVE Crossmatch IS Only See Detail Assessment/Plan - Problem List (1) Acute anemia Impression: Patient had diarrhea for 10 days which he described as black and watery. Patient has not had stool since admit. Hgb and Hct have stabilized after receiving 3 units PRBCs. 1. Recommend patient stop drinking alcohol which could contribute to GI bleeing. 2. Recommend patient have a colonoscopy and endoscopy in the outpatient setting to identify where the bleed is coming from. 3. Continue protonix oral daily at discharge. (2) Anemia Qualifiers: Iron deficiency anemia type: chronic blood loss (3) Diarrhea Impression: Patient reports 10 days of black, watery diarrhea before admit. No stool since admit. 1. Send stool culture, if patient has a BM. 2. Recommend that patient see his PCP if diarrhea begins again after discharge. Qualifiers: Diarrhea type: unspecified type Qualified Code(s): R19.7 - Diarrhea, unspecified (4) Macrocytic anemia Impression: Patient taking go po intake per accelerator systems director. Iron level 07/30/2019 was low at 39. 1. Continue folate and B12 supplementation. 2. Encourage patient to prepare and eat regular meals at home. If unable to do so, call family or friends for help. 3. Start iron supplementation. (5) Elevated INR Impression: Prior to admit, patient was taking 3mg warfarin po daily after he experienced a provoked DVT 7 years ago (long road trip with his brother). INR at admit with >10.0. 1. Hold coumadin. 2. Continue holding coumadin at discharge. 3. Outpatient hematology to assess necessity of ongoing anticoagulation. (6) Leukocytosis Impression: Patient admitted with a WBC of 16.3. It is down to 9 today. Patient has been afebrile throughout his hospitalization. Blood cultures no growth to date. Patient had been on an extended regimen on oral prednisone for a COPD exacerbation. RESOLVED. Qualifiers: Leukocytosis type: unspecified Qualified Code(s): D72.829 - Elevated white blood cell count, unspecified (7) Severe protein-calorie malnutrition Impression: Patient was unable to cook for himself in the time period leading up to hospitalization. His sister helped his set up grocery delivery from [employer]. He has been eating 50-100% of his meal while in the hospital. 1. Discharging with home health to assess patient's ability to care for self at home. 2. SW working to set up Meals on Wheels. 3. Replacing electrolytes as needed. (8) Alcohol abuse Impression: Patient reports drinking 3 large glasses of [place] per day. He has voiced interest to stop drinking. He thinks that he drinks to alleviate his anxiety. 1. SW to provide available resources to support him to quit drinking. 2. SW with home health services when discharged to support him going forward. (9) Adult failure to thrive syndrome Impression: Patient unable to care for himself in the period leading up to hospitalization. Patient and his sister report that he has experienced a substantial decline in functional status over the last 8 months. 1. Sending patient home with home health services. (10) History of DVT (deep vein thrombosis) Impression: Patient had a provoked DVT 7 years ago after a prolonged car trip with his brother. Has taken coumadin 3mg oral daily since that time. Patient was not getting routine INR checks. 1. Continue to hold coumadin. 2. Hold coumadin at discharge. 3. Outpatient hematology appointment to finalize discontinuation of coumadin. (12) PTSD (post-traumatic stress disorder) Impression: Patient has PTSD after serving in the [place]. He has completed a inpatient 30 day program for PTSD through the [facility] in the . 1. Continue bupropion. 2. Home health SW for ongoing support resources. (13) Moderate chronic obstructive pulmonary disease Impression: COPD after exposure to agent orange during the [place] War. 1. Contine home medications. 2. Follow-up with outpatient statistical clerk advertising. 3. Will need oxygen tank for discharge. <Jaimie Mtz - Last Filed: 08/01/19 14:33> Subjective - Subjective Subjective: Patient seen at the bedside. He is sitting up. Has eaten breakfast and lunch. He has had 2 more panic attacks since yesterday and today. When he gets panic attacks he gets very short of breath. Still weak, and needing contact-guard assist to get into the bathroom. He has not had a shower in spite of our request several times. He says that he has to gear himself psychologically because it is such an effort to do anything. He knows that he is going to have to sit down in between brushing his teeth, shaving his face, and trying to take a shower. He thinks the entire process may take over 2 hours. Objective - Vital Signs/Intake & Output Vital Signs: Vital Signs x48h Temp Pulse Pulse Resp BP Pulse Ox 08/01/19 12:00 112 H 20 08/01/19 08:12 36.3 C L 91 18 110/73 98 Intake & Output: Intake & Output 07/29/19 07/30/19 07/31/19 08/01/19 23:59 23:59 23:59 23:59 Intake Total 3405.2 3061 1190 Output Total 310 1550 725 Balance 3095.2 1511 465 - Objective Neurologic/Psychiatric: positive: Oriented x3, CN's nml (2-12), Motor nml (But weak.) Comments/Other: Alert, disheveled white male who looks younger than stated age. Nasal tone of voice. Able to comfortably speak to me without any increased respiratory effort. The only increased respiratory effort comes when he tries to get up and transition from the bed to the chair and he becomes tachypneic and short of breath and then quickly recovers within 45 seconds. Neck has shotty adenopathy. Lungs have prolonged and expiratory phase. He does not have the rhonchi he had yesterday when he has his phlegm at the base of his throat or upper bronchial tree causing rhonchorous breath sounds. Otherwise there is no crackles wheezing or egophony. He has a regular rate and rhythm. The abdomen is soft, nontender no fluid wave. This is in spite of my suspicion that he has cirrhosis. Liver is palpable below the right costal margin. Between yesterday and today we wrapped him over his legs to reduce edema. Edema is lessened but he still has significant 3+ edema of the feet 2+ edema of the distal calf and shins and no edema in the upper calf. - Lab Results Fish Bones: 08/01/19 04:35 08/01/19 04:35 Other Labs: Lab Results x24hrs 08/01/19 08/01/19 08/01/19 Range/Units 04:35 04:35 04:35 WBC (4.8-10.8) x10^3/uL RBC (4.70-6.10) 10^6/uL Hgb (14.0-18.0) g/dL Hct (42.0-52.0) % MCV (80.0-94.0) fL MCH (27.0-31.0) pg MCHC (32.0-36.0) g/dL RDW (12.0-15.0) % Plt Count (130-450) 10^3/uL MPV (7.4-11.4) fL Neut # (Auto) (1.5-6.6) 10^3/uL Lymph # (Auto) (1.5-3.5) 10^3/uL Edwards # (Auto) (0.0-1.0) 10^3/uL Eos # (Auto) (0.0-0.7) 10^3/uL Baso # (Auto) (0.0-0.1) 10^3/uL Absolute Nucleated RBC x10^3/uL Nucleated RBC % /100WBC Manual Slide Review Platelet Estimate (NORMAL) RBC Morph Micro Appear (NORMAL) PT 10.1 (9.9-12.6) secs INR 0.9 (0.8-1.2) Bld Gas Analysis Time Sample Site ABG pH (7.35-7.45) ABG pCO2 (34-45) mmHg ABG pO2 (80-100) mmHg ABG HCO3 (22.0-26.0) mmol/L ABG Total CO2 (21.0-29.0) MMOL/L ABG O2 Saturation (94-98) % ABG Base Excess (-2.0-3.0) mmol/L Janes Test O2 Delivery Device O2 Liters/Min LPM Sodium 139 (135-145) mmol/L Potassium 4.2 (3.5-5.0) mmol/L Chloride 109 (101-111) mmol/L Carbon Dioxide 25 (21-32) mmol/L Anion Gap 5.0 L (6-13) BUN 12 (6-20) mg/dL Creatinine 0.7 (0.6-1.2) mg/dL Estimated GFR (MDRD) 111 (>89) Glucose 178 H (70-100) mg/dL Calcium 7.8 L (8.5-10.3) mg/dL Phosphorus 1.6 L (2.5-4.6) mg/dL Magnesium 1.7 (1.7-2.8) mg/dL B-Natriuretic Peptide (5-100) pg/mL Blood Type Antibody Screen Crossmatch IS Only 08/01/19 07/31/19 07/31/19 Range/Units 04:35 16:04 05:40 WBC 9.5 (4.8-10.8) x10^3/uL RBC 2.65 L (4.70-6.10) 10^6/uL Hgb 8.8 L (14.0-18.0) g/dL Hct 27.0 L (42.0-52.0) % MCV 101.9 H (80.0-94.0) fL MCH 33.2 H (27.0-31.0) pg MCHC 32.6 (32.0-36.0) g/dL RDW 21.4 H (12.0-15.0) % Plt Count 227 (130-450) 10^3/uL MPV 9.8 (7.4-11.4) fL Neut # (Auto) 8.8 H (1.5-6.6) 10^3/uL Lymph # (Auto) 0.4 L (1.5-3.5) 10^3/uL Edwards # (Auto) 0.3 (0.0-1.0) 10^3/uL Eos # (Auto) 0.0 (0.0-0.7) 10^3/uL Baso # (Auto) 0.0 (0.0-0.1) 10^3/uL Absolute Nucleated RBC 0.02 x10^3/uL Nucleated RBC % 0.2 /100WBC Manual Slide Review Indicated Platelet Estimate NORMAL (130-450,000) (NORMAL) RBC Morph Micro Appear 1+ OVALOCYTES (NORMAL) PT (9.9-12.6) secs INR (0.8-1.2) Bld Gas Analysis Time 1604 Sample Site RIGHT RADIAL ABG pH 7.47 H (7.35-7.45) ABG pCO2 34 (34-45) mmHg ABG pO2 66 L (80-100) mmHg ABG HCO3 23.7 (22.0-26.0) mmol/L ABG Total CO2 24.7 (21.0-29.0) MMOL/L ABG O2 Saturation 94 (94-98) % ABG Base Excess 0.4 (-2.0-3.0) mmol/L Janes Test POSITIVE O2 Delivery Device NASAL CANNULA O2 Liters/Min 3.00 LPM Sodium (135-145) mmol/L Potassium (3.5-5.0) mmol/L Chloride (101-111) mmol/L Carbon Dioxide (21-32) mmol/L Anion Gap (6-13) BUN (6-20) mg/dL Creatinine (0.6-1.2) mg/dL Estimated GFR (MDRD) (>89) Glucose (70-100) mg/dL Calcium (8.5-10.3) mg/dL Phosphorus (2.5-4.6) mg/dL Magnesium (1.7-2.8) mg/dL B-Natriuretic Peptide 177 H (5-100) pg/mL Blood Type Antibody Screen Crossmatch IS Only 07/30/19 Range/Units 06:35 WBC (4.8-10.8) x10^3/uL RBC (4.70-6.10) 10^6/uL Hgb (14.0-18.0) g/dL Hct (42.0-52.0) % MCV (80.0-94.0) fL MCH (27.0-31.0) pg MCHC (32.0-36.0) g/dL RDW (12.0-15.0) % Plt Count (130-450) 10^3/uL MPV (7.4-11.4) fL Neut # (Auto) (1.5-6.6) 10^3/uL Lymph # (Auto) (1.5-3.5) 10^3/uL Edwards # (Auto) (0.0-1.0) 10^3/uL Eos # (Auto) (0.0-0.7) 10^3/uL Baso # (Auto) (0.0-0.1) 10^3/uL Absolute Nucleated RBC x10^3/uL Nucleated RBC % /100WBC Manual Slide Review Platelet Estimate (NORMAL) RBC Morph Micro Appear (NORMAL) PT (9.9-12.6) secs INR (0.8-1.2) Bld Gas Analysis Time Sample Site ABG pH (7.35-7.45) ABG pCO2 (34-45) mmHg ABG pO2 (80-100) mmHg ABG HCO3 (22.0-26.0) mmol/L ABG Total CO2 (21.0-29.0) MMOL/L ABG O2 Saturation (94-98) % ABG Base Excess (-2.0-3.0) mmol/L Janes Test O2 Delivery Device O2 Liters/Min LPM Sodium (135-145) mmol/L Potassium (3.5-5.0) mmol/L Chloride (101-111) mmol/L Carbon Dioxide (21-32) mmol/L Anion Gap (6-13) BUN (6-20) mg/dL Creatinine (0.6-1.2) mg/dL Estimated GFR (MDRD) (>89) Glucose (70-100) mg/dL Calcium (8.5-10.3) mg/dL Phosphorus (2.5-4.6) mg/dL Magnesium (1.7-2.8) mg/dL B-Natriuretic Peptide (5-100) pg/mL Blood Type B POSITIVE Antibody Screen NEGATIVE Crossmatch IS Only See Detail ABX Reporting Has patient been on IV antibiotics over the past 48 hours?: No Assessment/Plan - Problem List (2) Diarrhea Qualifiers: Diarrhea type: unspecified type Qualified Code(s): R19.7 - Diarrhea, unspecified (5) Leukocytosis Qualifiers: Qualified Code(s): D72.829 - Elevated white blood cell count, unspecified (14) Electrolyte depletion Impression: The above problems are noted. We have discussed the treatment plan at length. I agree with the above suggestions and those orders have been written by me. This morning I also noted hypomagnesemia, hypophosphatemia, and supplementation has been written for.
[2019-08-01] MEDS ORDERED: MAGNESIUM SULFATE 2 GRAM 2 GM/50 ML BAG IV ONE (13:25)
[2019-08-01] MEDS: NEUTRA-PHOS 250 MG TABLET PO SCH ×2 (14:16→17:09)
--- NOTE | 2019-08-01 15:20 | ADVANCE CARE PLANNING NOTE ---
Advance Care Planning - Planning Encounter Date: 08/01/19 Time: 15:17 Purpose: Understanding of his disease status, disability, and future plans Parties in Attendance: Sister, patient, YARD SPECIALIST Student Batool Cobos, Hospitalist aJimie Mtz MD Decisional Capacity of the Patient: intact, alert, oriented - Diagnosis for Encounter (1) Moderate chronic obstructive pulmonary disease Summary: Attributed to a combination of exposure of agent orange when he was in the [place] as well as smoking. It is been diagnosed for 10 to 12 years. Steadily progressive to the point that he no longer drives, is on 2 L nasal cannula, that is basically homebound. Starting in January of this year he could not buy groceries anymore because of exertion and dyspnea. His sister started buying him groceries in February. - Encounter Subjective/Patient's Story: [place]. [place] wonderful [place]. He has 3 brothers and a sister. He went away for the [place] and [place]. 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 With all of these things he is developed PTSD and anxiety. He readily admits that he uses his alcohol as a way to control his anxiety. Started developing COPD probably 10 or 12 years ago. The way he noticed it was is inability to follow through on physical activity. His mind would state that it was time to "do something" and he would try and follow through when he could not because of his breathing and slowness. It slowly crept up on him over time. He laughs and states that the most fun thing for him to do in life is to have sex. But then he was unable to do that anymore and he readjusted what "fun was". He states that is a as he has become more immobile, more dyspneic, he has come to realize there is other things he likes to do and he still finds jeni and quality in his life. He used to love to take driving trips. Left to get in the car and drive to [facility]. Had south to see 1 of his brothers in [place]. But he has been able to do that for 5 years. 2 years ago it was just getting so hard to leave the house that he started spending more time at home. He bought a brand-new car a year and a half ago and it only has 3500 miles on it. A year ago he stopped going to the doctor's office because it was just "way too hard". It got increasingly difficult to do simple things such as going to the grocery store to get groceries. Dinner would be described as a half a day extravagant ends up. He would psychologically work himself up to the energy to be able to get the steak out of the freezer and put it out to defrost. Then he would settle well. Then he would realize that he is got a wrap the potato to then put it in the abdomen. Then he would settle well. Eventually he would be able to eat his steak and potato but it would take forever to get it done. It got to the point that he could not get anything down and his sister started buying groceries for him in February. She realized that he had not gone grocery shopping in probably 2 months. He has a lady that comes to the house to clean every month or so. He then developed the nausea, lack of appetite, and black, watery diarrhea for the 10 days prior to admission. And he just could not get out of bed at all. He was incontinent in the bed. Incontinent over himself. Anxiety was ever present. Which would in her trying with his COPD and he would became very, very short of breath. He will work himself into "exasperation". I think he means to say exacerbation. He has been admitted to the hospital for dehydration, severe protein calorie malnutrition, macrocytic anemia from his severe alcohol abuse. He has an overall adult failure to thrive syndrome. He is willing to stop drinking, will ing to do the physical rehabilitation needed to get him stronger, and also looking to get treatment for his PTSD since he thinks the PTSD with anxiety is now overwhelming him in addition to his COPD. The alcohol was a way for him to cope and take "tranquilizer". His sister lives in [place]. But she lives on a boat off [address] of [address] [place]. She is usually traveling [place] and [place] from [place] until the fall so is not always readily available. Brother lives in [place]. While he loves his brother and would not mind living near him, he does not want to leave this area. He loves this area. Because he is adjusted his expectations of life as he is gotten more disabled, he thinks that he would be able to adjust to living in a alf facility we had to. He loves his condominium. He loves the picture window where he gets it all day long overlooking the [place] and watching the boats, mountains, and the people go by. But he would give it up if he had to go live in a alf facility. He is not ready to go yet. He has a walker at home and uses O2 at home. 2 liters/min [place]. However, if you were to become so ill that he was not responding to treatment, and he was near , he is amenable to being let go. He wants to be reassured that antibiotics will be given, pressors will be given, blood transfusions, necessary surgeries etc. But if everything has been done and he is still failing and not go to make it, let him go. No chest compressions, no intubations. No life support. 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 Patient had an COPD exacerbation 2 months ago, saw his PCP and was given oral steroids. On the steroids the patient felt that his breathing improved. He ran out of steroids and was given a refill about 10 days ago. Four days ago, the patient noticed bilateral lower extremity edema with constant weeping, a sore throat and lymph node edema in his neck which he thought was related to the steroids so he stopped taking them. The patient and his sister report a steady functional decline with last known normal eight months ago. At that time he could walk 1 block, perform his ADLs and grocery shop for himself. The patient was so weak and unable to care for himself, and decided to call EMS at 4 am this morning (07/30/2019). - Past Medical History Cardiovascular: reports: Hypertension, Deep vein thrombosis (provoked after a cross country ride in car with his brother. kept on coumadin for 7 years now.), Pulmonary embolism Respiratory: reports: COPD (sees [facility]ology at [facility]), Pneumonia (History of.), Shortness of breath Neuro: reports: Tremors Endocrine/Autoimmune: reports: None GI: reports: GERD, Chronic diarrhea (was severe after bowel resection in 1970's then slowed down and now can be with nml stool but occ diarrhea needs loperamide.) : reports: None HEENT: reports: None Psych: reports: Depression, Post traumatic stress disorder Musculoskeletal: reports: Osteoporosis (followed by specialist at the [facility]) Derm: reports: Rosacea MRSA Hx?: No - Past Surgical History General: reports: Appendectomy, Bowel surgery (Resection of bowel after injury on offshore rig), Splenectomy HEENT: reports: Tonsil/Adenoidectomy Goals of Care: 1. To remain in his condominium for as long as possible. He absolutely loves living there and feels his best there. 2. He wants to get stronger physically. As such he is willing to go to a alf facility. 3. He would like to stop drinking. 4. He would like treatment for his PTSD Plan: 1. Physical therapy is evaluated him and feels he is a candidate for alf facility rehab. Right now he would not be able to return to home to live by himself. Even though he is ambulating with a contact-guard assist, the effort required to do simple things such as shaving takes over 2 hours. As such he is a candidate and we are going to try find placement. Case management has already given us contact number. 2. Start Zoloft during the day, Seroquel at night. I like him to follow through for treatment of his PTSD with his [facility] clinic or new PCP clinic so that they can refer him to [facility]. I do not think [place] through the [facility] because of the effort required. 3. Palliative Care consult has been ordered. He, and especially his sister, are relieved there will be some help with future planning in the face of an expected deterioration from his lungs. At some point, he will not find it within him to go on. His sister states that there are sometimes, when his COPD episodes are back, he does say that he would rather than keep on living this way. But then he has a good day and he does not feel that way anymore. Eventually, the expectation would be that his bad days would outweigh his good days and he would transition to hospice. Code Status: Do Not Attempt Resuscitation Time spent on advance care plannin minutes
[2019-08-01] MEDS: FERROUS GLUCONATE 324 MG TABLET PO SCH (16:29)
[2019-08-01] MEDS: QUEtiapine 25 MG TABLET PO SCH (21:36)
[2019-08-02 05:42] LABS: BASOPHILS % (AUTO) 0.2 %; HGB - HEMOGLOBIN 8.2 g/dL (14.0-18.0); LYMPHOCYTES # (AUTO) 0.4 10^3/uL (1.5-3.5); MEAN CORPUSCULAR HEMOGLOBIN 33.5 pg (27.0-31.0); MEAN CORPUSCULAR VOLUME 104.5 fL (80.0-94.0); MEAN PLATELET VOLUME 9.7 fL (7.4-11.4); MONOCYTES # (AUTO) 0.9 10^3/uL (0.0-1.0); NEUTROPHILS # (AUTO) 12.7 10^3/uL (1.5-6.6); NEUTROPHILS % (AUTO) 89.7 %; PLT - PLATELET COUNT 246 10^3/uL (130-450); RED BLOOD COUNT 2.45 10^6/uL (4.70-6.10); RED CELL DISTRIBUTION WIDTH 20.6 % (12.0-15.0); WHITE BLOOD COUNT 14.1 x10^3/uL (4.8-10.8)
[2019-08-02 05:47] LABS: CALCIUM 7.4 mg/dL (8.5-10.3); CREATININE 0.5 mg/dL (0.6-1.2)
[2019-08-02 05:50] LABS: INR 0.8 (0.8-1.2); PT - PROTHROMBIN TIME 9.6 secs (9.9-12.6)
[2019-08-02] MEDS: methylPREDNISolone SUCCINATE 40 MG/ML VIAL IVP SCH ×3 (06:03→21:30)
[2019-08-02] MEDS: SODIUM CHLORIDE FLUSH 0.9% 10 ML SYRINGE IVP SCH ×4 (06:03→23:29)
[2019-08-02 06:04] LABS: PLATELET ESTIMATE, MANUAL NORMAL (130-450,000) (NORMAL)
[2019-08-02] MEDS: PANTOPRAZOLE 40 MG TABLET PO SCH (06:38)
[2019-08-02] MEDS: IPRATROPIUM/ALBUTEROL 3 ML NEB INH SCH ×4 (07:26→19:39)
[2019-08-02] MEDS: BUDESONIDE 0.5 MG/2 ML NEB INH SCH ×2 (07:26→19:39)
[2019-08-02] MEDS: FORMOTEROL FUMARATE NEB 20 MCG/2 ML INH SCH ×2 (07:26→19:39)
[2019-08-02] MEDS: PHENOL THROAT SPRAY 177 ML MM PRN ×2 (08:10→23:29)
[2019-08-02] MEDS: MAGNESIUM OXIDE 400 MG TABLET PO SCH (08:11)
[2019-08-02] MEDS: FOLIC ACID 1 MG TABLET PO SCH (08:11)
[2019-08-02] MEDS: NYSTATIN 500000 UNITS/5 ML UDC PO SCH ×4 (08:11→20:37)
[2019-08-02] MEDS: THIAMINE 100 MG TABLET PO SCH (08:11)
[2019-08-02] MEDS: FERROUS GLUCONATE 324 MG TABLET PO SCH (08:11)
[2019-08-02] MEDS: NEUTRA-PHOS 250 MG TABLET PO SCH ×3 (08:11→17:20)
[2019-08-02] MEDS: SERTRALINE 25 MG TABLET PO SCH (08:11)
--- NOTE | 2019-08-02 09:04 | PROVIDER PROGRESS NOTE ---
<Batool Cobos - Last Filed: 08/02/19 17:32> Subjective - Prog Note Date Prog Note Date: 08/02/19 Prog Note Time: 09:01 - Subjective Pt reports feeling: No change Subjective: Patient lying in bed with head elevated on 3 pillows. He said that he slept well. He has been sitting at the side of the bed and has had breakfast. He notices that it is taking a little longer that usual to "catch his breath" and once he does he will think about finishing shaving (the half he didn't get to yesterday) and take a shower. Current Medications - Current Medications Current Medications: Active Medications Albuterol () 2.5 mg INH RTQ4H PRN PRN Reason: Wheezing Albuterol/Ipratropium (Duoneb) 3 ml INH RTQID [facility] Last Admin: 08/02/19 07:26 Dose: 3 ml Budesonide (Pulmicort) 0.5 mg INH RTBID [facility] Last Admin: 08/02/19 07:26 Dose: 0.5 mg Ferrous Gluconate (Fergon) 324 mg PO DAILYWM [facility] Last Admin: 08/02/19 08:11 Dose: 324 mg Folic Acid () 1 mg PO DAILY [facility] Last Admin: 08/02/19 08:11 Dose: 1 mg Formoterol Fumarate (Perforomist) 20 mcg INH RTBID [facility] Last Admin: 08/02/19 07:26 Dose: 20 mcg Magnesium Oxide (Mag Ox) 400 mg PO DAILYWM [facility] Last Admin: 08/02/19 08:11 Dose: 400 mg Methylprednisolone (Solu-Medrol (40mg Vial)) 40 mg IVP TID [facility] Last Admin: 08/02/19 06:03 Dose: 40 mg Nystatin (Mycostatin) 5 ml PO QID [facility] Last Admin: 08/02/19 08:11 Dose: 5 ml Pantoprazole Sodium (Protonix) 40 mg PO QDAC [facility] Last Admin: 08/02/19 06:38 Dose: 40 mg Phenol/Menthol (Chloraseptic) 2 sprays MM Q2HR PRN PRN Reason: Throat Pain Last Admin: 08/02/19 08:10 Dose: 2 sprays Quetiapine Fumarate (Seroquel) 25 mg PO QPM [facility] Last Admin: 08/01/19 21:36 Dose: 25 mg Sertraline HCl (Zoloft) 25 mg PO DAILY [facility] Last Admin: 08/02/19 08:11 Dose: 25 mg Sodium Chloride (Normal Saline Flush 0.9%) 10 ml IVP PRN PRN PRN Reason: NEEDED PER PROVIDER ORDERS Last Admin: 08/01/19 14:17 Dose: 10 ml Sodium Chloride (Normal Saline Flush 0.9%) 10 ml IVP 0100,0900,1700 [facility] Last Admin: 08/02/19 06:03 Dose: 10 ml Sodium Phosphate (K-Phos Neutral) 250 mg PO TIDWM [facility] Last Admin: 08/02/19 08:11 Dose: 250 mg Thiamine HCl (Vitamin B-1) 100 mg PO DAILY [facility] Last Admin: 08/02/19 08:11 Dose: 100 mg Throat Lozenges (Cepacol) 1 lozenge MM Q2HR PRN PRN Reason: Throat pain Last Admin: 08/01/19 01:52 Dose: 1 lozenge Albuterol Sulfate 90 mcg IH QID 02/03/13 Amlodipine Besylate 10 mg PO BID 02/03/13 Atenolol [Tenormin] 50 mg PO DAILY 02/03/13 Bupropion HCl 75 mg PO BID 02/03/13 Calcium Carbonate/Vitamin D3 [Calcium 250+D Tablet] 2 each PO BID 02/03/13 Ipratropium/Albuterol [Duoneb] 3 ml INH QID 02/03/13 Loratadine [Children's Clear-Atadine] 10 mg PO DAILY 02/03/13 Montelukast [Singulair] 10 mg PO DAILY 02/03/13 Niacin [Niaspan] 500 mg PO TID 02/03/13 Warfarin [Coumadin] 3 mg PO 1700 02/03/13 Budesonide/Formoterol Fumarate [Symbicort 160-4.5 Mcg Inhaler] 2 puffs INH BID 07/30/19 Cholecalciferol (Vitamin D3) [Vitamin D3] 1,000 unit PO DAILY 07/30/19 Cyanocobalamin (Vitamin B-12) [Vitamin B-12] 1,000 mcg PO DAILY 07/30/19 Docusate Sodium [Dss] 250 mg PO BID 07/30/19 Fluticasone 110 Mcg [Flovent] 2 spray INH DAILY 07/30/19 Magnesium Oxide,Aspartate,Citr [Triple Magnesium Complex] 420 mg PO BID 07/30/19 Sildenafil Citrate 100 mg PO PRN PRN 07/30/19 Tiotropium [place] [Spiriva] 18 mcg INH DAILY 07/30/19 predniSONE [Deltasone] 20 mg PO DAILY 07/30/19 Objective - Vital Signs/Intake & Output Reviewed Vital Signs: Yes Vital Signs: Vital Signs x48h Pulse Resp 08/02/19 07:27 90 18 Intake & Output: Intake & Output 07/30/19 07/31/19 08/01/19 08/02/19 23:59 23:59 23:59 23:59 Intake Total 3405.2 3061 1720 360 Output Total 310 1550 975 450 Balance 3095.2 1511 745 -90 - Objective General Appearance: positive: Alert, Mild distress Eyes Bilateral: positive: Normal inspection, PERRL ENT: positive: ENT inspection nml, No signs of dehydration Neck: positive: Nml inspection Respiratory: positive: Chest non-tender, Breath sounds nml, Other (Patient short of breath at rest) Cardiovascular: positive: Regular rate & rhythm, No murmur, No gallop Peripheral Pulses: 2+ Radial (R), 2+ Radial (L), 2+ Dorsalis pedis (R), 2+ Dorsalis pedis (L) Abdomen: positive: Non-tender, Nml bowel sounds, Hepatomegaly Back: positive: Nml inspection Skin: positive: Color nml, Dry Extremities: positive: Non-tender, Pedal edema (Improved from yesterday). negative: Calf tenderness Neurologic/Psychiatric: positive: Oriented x3, Weakness. negative: Facial droop, Slurred/abnml speech - Lab Results Fish Bones: 08/02/19 05:16 08/02/19 05:16 Other Labs: Lab Results x24hrs 08/02/19 08/02/19 08/02/19 Range/Units 05:16 05:16 05:16 WBC (4.8-10.8) x10^3/uL RBC (4.70-6.10) 10^6/uL Hgb (14.0-18.0) g/dL Hct (42.0-52.0) % MCV (80.0-94.0) fL MCH (27.0-31.0) pg MCHC (32.0-36.0) g/dL RDW (12.0-15.0) % Plt Count (130-450) 10^3/uL MPV (7.4-11.4) fL Neut # (Auto) (1.5-6.6) 10^3/uL Lymph # (Auto) (1.5-3.5) 10^3/uL [place] # (Auto) (0.0-1.0) 10^3/uL Eos # (Auto) (0.0-0.7) 10^3/uL Baso # (Auto) (0.0-0.1) 10^3/uL Absolute Nucleated RBC x10^3/uL Nucleated RBC % /100WBC Manual Slide Review Platelet Estimate (NORMAL) RBC Morph Micro Appear (NORMAL) PT (9.9-12.6) secs INR (0.8-1.2) Sodium 139 (135-145) mmol/L Potassium 4.4 (3.5-5.0) mmol/L Chloride 110 (101-111) mmol/L Carbon Dioxide 24 (21-32) mmol/L Anion Gap 5.0 L (6-13) BUN 11 (6-20) mg/dL Creatinine 0.5 L (0.6-1.2) mg/dL Estimated GFR (MDRD) 163 (>89) Glucose 156 H (70-100) mg/dL Calcium 7.4 L (8.5-10.3) mg/dL Phosphorus 2.1 L (2.5-4.6) mg/dL Magnesium 1.8 (1.7-2.8) mg/dL Crossmatch IS Only 08/02/19 08/02/19 07/30/19 Range/Units 05:16 05:16 06:35 WBC 14.1 H (4.8-10.8) x10^3/uL RBC 2.45 L (4.70-6.10) 10^6/uL Hgb 8.2 L (14.0-18.0) g/dL Hct 25.6 L (42.0-52.0) % MCV 104.5 H (80.0-94.0) fL MCH 33.5 H (27.0-31.0) pg MCHC 32.0 (32.0-36.0) g/dL RDW 20.6 H (12.0-15.0) % Plt Count 246 (130-450) 10^3/uL MPV 9.7 (7.4-11.4) fL Neut # (Auto) 12.7 H (1.5-6.6) 10^3/uL Lymph # (Auto) 0.4 L (1.5-3.5) 10^3/uL [place] # (Auto) 0.9 (0.0-1.0) 10^3/uL Eos # (Auto) 0.0 (0.0-0.7) 10^3/uL Baso # (Auto) 0.0 (0.0-0.1) 10^3/uL Absolute Nucleated RBC 0.02 x10^3/uL Nucleated RBC % 0.1 /100WBC Manual Slide Review Indicated Platelet Estimate NORMAL (130-450,000) (NORMAL) RBC Morph Micro Appear 1+ OVALOCYTES (NORMAL) PT 9.6 L (9.9-12.6) secs INR 0.8 (0.8-1.2) Sodium (135-145) mmol/L Potassium (3.5-5.0) mmol/L Chloride (101-111) mmol/L Carbon Dioxide (21-32) mmol/L Anion Gap (6-13) BUN (6-20) mg/dL Creatinine (0.6-1.2) mg/dL Estimated GFR (MDRD) (>89) Glucose (70-100) mg/dL Calcium (8.5-10.3) mg/dL Phosphorus (2.5-4.6) mg/dL Magnesium (1.7-2.8) mg/dL Crossmatch IS Only See Detail ABX Reporting Has patient been on IV antibiotics over the past 48 hours?: No Sepsis Event Note (H) - Sepsis Criteria Sepsis Criteria: Recorded Heart Rate greater than 90 bpm, WBC count greater than 12,000 or less than 4000, Metabolic: lactate > 2 mmol/L, Hematologic: platelets < 100,000; INR > 1.5, or a PTT>60 seconds Assessment/Plan - Problem List (1) Moderate chronic obstructive pulmonary disease Impression: Patient has been diagnosed with COPD 10 years ago. He uses oxygen at home, 2L O2 and has sats from 88 to 92%. 1. Continue home meds. 2. Follow-up with PCP and/or promotional representative at discharge. 3. Recommending pulmonary rehab which patient can do after his SNF stay. (2) Adult failure to thrive syndrome Impression: Patient's functional status has been declining for approximately 8 months ac cording to the patient and his sister. He is increasingly SOB with minimal activity. He hasn't had enough energy to go to his medical appointments, grocery shop, and go to the commissary. 1. Begin advanced care discussions with patient and his sister. (08/01/2019 see note) 2. Encourage patient to follow-up with his promotional representative to optimize COPD treatments. 3. Discharge to SNF. (3) Anemia Impression: No evidence of bleeding. Hct 25.6 down from 27, Hgb 8.2 down from 8.8 yesterday. INR 0.8. 1. Continue holding coumadin 2. Monitor for evidence of GI bleeding. 3. Refer for outpatient endoscopy and colonoscopy. Qualifiers: Iron deficiency anemia type: chronic blood loss (4) Diarrhea Impression: No stool overnight. Patient denies having stool since admit, but nursing yesterday thought that the patient had a stool and flushed. Qualifiers: Diarrhea type: unspecified type Qualified Code(s): R19.7 - Diarrhea, unspecified (5) Macrocytic anemia Impression: Chronic alcohol use, poor nutrition contributing to chronic anemia. 1. Encourage patient to continue abstinence from alcohol. 2. Continue folate, MVI, iron, B12 supplementation. 3. Follow-up with PCP for monitoring. (6) Elevated INR Impression: INR >10.0 on admit. INR 0.8 08/02/2019. Patient had not been getting routine INR laboratory monitoring. 1. Continue to hold coumadin. 2. PCP follow-up with or hematology to decide whether coumadin should be restarted. (7) Leukocytosis Impression: WBC on admit 16. WBC 14.1 08/02 up from 08/01. Afebrile. VSS. Patient had IV dexamethasone 07/31. 1. Continue to monitor for signs or symptoms of infection. Qualifiers: Leukocytosis type: unspecified Qualified Code(s): D72.829 - Elevated white blood cell count, unspecified (8) Severe protein-calorie malnutrition Impression: Patient not cooking for himself before admit. While hospitalized, patient eating 50-100% of general diet. Electrolytes stabilizing. 1. Patient to discharge to SNF where he will continue to have meals provided for him. 2. Follow-up with PCP regaring nutritional status. (9) Alcohol abuse Impression: Prior to admit patient drinking 3 glasses of [place] Nora daily. Patient denies having withdrawal from alcohol in the past. No withdrawal symptoms noted during this hospitalization. 1. SW to provide patient with outpatient support to quit drinking. (10) Orthopnea Impression: Patient continues to have orthopnea. ECHO with LVEF 70%, so not cardiac in origin. 1. Recommend respiratory rehab. 2. Follow-up with outpatient promotional representative to optimize therapy. 3. Continue O2 therapy with goal to keep O2 sats >88%. (12) History of DVT (deep vein thrombosis) Impression: Historically, patient had a DVT provoked after [place] care trip with his brother seven years ago. Patient has been taking 3 mg coumadin daily since that time. Patient admits not getting routine anti-coagulation labs. 1. Holding coumadin at this time after INR >10.0 at admit. 2. Follow-up with PCP or ict managers to discuss discontinuation. <Jaimie Mtz - Last Filed: 08/02/19 17:47> Subjective - Subjective Subjective: He still complaining of orthopnea. And dyspnea on exertion with just minimal activity. Yesterday he started the whole breathing process and only shaved half his face. He stopped because of sheer exhaustion. Still has not gotten around to shaving the rest of his face or taking his bath. Seen by physical therapy today. Again, PT confirms that he is very dyspneic with minimal exertion. We also started figure of 8 Jus wraps of his legs to reduce edema. It is working. He still prefers to be upright sitting in a chair. Keeps on forgetting to elevate his feet. Objective - Vital Signs/Intake & Output Vital Signs: Vital Signs x48h Temp Pulse Pulse Resp BP Pulse Ox 08/02/19 15:49 36.3 C L 115 H 18 124/67 98 08/02/19 15:11 94 20 08/02/19 14:11 36.5 C 90 18 98 08/02/19 11:32 90 18 Intake & Output: Intake & Output 07/30/19 07/31/19 08/01/19 08/02/19 23:59 23:59 23:59 23:59 Intake Total 3405.2 3061 1720 840 Output Total 310 1550 975 900 Balance 3095.2 1511 745 -60 - Objective Comments/Other: White male who looks younger than stated age, at rest is comfortable. With speaking, getting up to move to chair, gets very tachypneic very easily. Also high level of anxiety which is getting his feet out of the bed and out from underneath the sheets causes him to panic and cause severe dyspnea on exertion out of proportion to the event. Lungs are clear today. Yesterday he had quite a bit of rhonchi. Today clear with prolonged and expiratory phase. Regular rate and rhythm. No murmurs rubs or gallops Abdomen soft, nontender, normal bowel sounds no fluid wave. No asterixis. No signs of withdrawal. Edema of his legs is improved from yesterday. - Lab Results Fish Bones: 08/02/19 05:16 08/02/19 05:16 Other Labs: Lab Results x24hrs 08/02/19 08/02/19 08/02/19 Range/Units 05:16 05:16 05:16 WBC (4.8-10.8) x10^3/uL RBC (4.70-6.10) 10^6/uL Hgb (14.0-18.0) g/dL Hct (42.0-52.0) % MCV (80.0-94.0) fL MCH (27.0-31.0) pg MCHC (32.0-36.0) g/dL RDW (12.0-15.0) % Plt Count (130-450) 10^3/uL MPV (7.4-11.4) fL Neut # (Auto) (1.5-6.6) 10^3/uL Lymph # (Auto) (1.5-3.5) 10^3/uL [place] # (Auto) (0.0-1.0) 10^3/uL Eos # (Auto) (0.0-0.7) 10^3/uL Baso # (Auto) (0.0-0.1) 10^3/uL Absolute Nucleated RBC x10^3/uL Nucleated RBC % /100WBC Manual Slide Review Platelet Estimate (NORMAL) RBC Morph Micro Appear (NORMAL) PT (9.9-12.6) secs INR (0.8-1.2) Sodium 139 (135-145) mmol/L Potassium 4.4 (3.5-5.0) mmol/L Chloride 110 (101-111) mmol/L Carbon Dioxide 24 (21-32) mmol/L Anion Gap 5.0 L (6-13) BUN 11 (6-20) mg/dL Creatinine 0.5 L (0.6-1.2) mg/dL Estimated GFR (MDRD) 163 (>89) Glucose 156 H (70-100) mg/dL Calcium 7.4 L (8.5-10.3) mg/dL Phosphorus 2.1 L (2.5-4.6) mg/dL Magnesium 1.8 (1.7-2.8) mg/dL Crossmatch IS Only 08/02/19 08/02/19 07/30/19 Range/Units 05:16 05:16 06:35 WBC 14.1 H (4.8-10.8) x10^3/uL RBC 2.45 L (4.70-6.10) 10^6/uL Hgb 8.2 L (14.0-18.0) g/dL Hct 25.6 L (42.0-52.0) % MCV 104.5 H (80.0-94.0) fL MCH 33.5 H (27.0-31.0) pg MCHC 32.0 (32.0-36.0) g/dL RDW 20.6 H (12.0-15.0) % Plt Count 246 (130-450) 10^3/uL MPV 9.7 (7.4-11.4) fL Neut # (Auto) 12.7 H (1.5-6.6) 10^3/uL Lymph # (Auto) 0.4 L (1.5-3.5) 10^3/uL [place] # (Auto) 0.9 (0.0-1.0) 10^3/uL Eos # (Auto) 0.0 (0.0-0.7) 10^3/uL Baso # (Auto) 0.0 (0.0-0.1) 10^3/uL Absolute Nucleated RBC 0.02 x10^3/uL Nucleated RBC % 0.1 /100WBC Manual Slide Review Indicated Platelet Estimate NORMAL (130-450,000) (NORMAL) RBC Morph Micro Appear 1+ OVALOCYTES (NORMAL) PT 9.6 L (9.9-12.6) secs INR 0.8 (0.8-1.2) Sodium (135-145) mmol/L Potassium (3.5-5.0) mmol/L Chloride (101-111) mmol/L Carbon Dioxide (21-32) mmol/L Anion Gap (6-13) BUN (6-20) mg/dL Creatinine (0.6-1.2) mg/dL Estimated GFR (MDRD) (>89) Glucose (70-100) mg/dL Calcium (8.5-10.3) mg/dL Phosphorus (2.5-4.6) mg/dL Magnesium (1.7-2.8) mg/dL Crossmatch IS Only See Detail ABX Reporting Has patient been on IV antibiotics over the past 48 hours?: No Assessment/Plan - Problem List (1) Moderate chronic obstructive pulmonary disease Impression: His assessment and plan per [facility] student is correct. His main delay in discharge has been his severe weakness, malnutrition, and COPD. He has slowly improved during his stay to the point that it is now time for more prolonged nutrition, and improved endurance. Our plan is for him to go to a shelter facility for strength and endurance training. Occupational Therapy. From there he will return to home but we strongly encouraged him to do pulmonary rehab. We have also asked him to join a support group with regards to his alcohol abuse. He is still hesitant about stating that he will stop drinking altogether. He thinks he can drink in moderation and control it. Social work is been working very closely with him and offer him support services [facility]. His sister called today and we reiterated yesterday's advance care conversation again on the phone today. She is his power of attorney recruiter. Our plan was discussed with her.
--- NOTE | 2019-08-02 11:48 | PHARMACY PROGRESS NOTE ---
- Best Possible Medication History Admit Date and Time: 07/30/19 0656 Processed by: Pharmacy Medication History completed: Yes Patient Interview: Completed Secondary Source(s): Pharmacy records As the person ultimately responsible for medication therapy, providers are able to order a medication from an existing home medication list in [facility] via the "Reconcile Routine" prior to Confirmation of that medication by technical support coordinator. Such practice is discouraged except when the physician, in their clinical judgment, deems that a medical need exists for a medication without regard to previous use.
[2019-08-02] MEDS: ACETAMINOPHEN 325 MG TABLET PO PRN (18:30)
[2019-08-02] MEDS: QUEtiapine 25 MG TABLET PO SCH (20:37)
[2019-08-02] MEDS: SODIUM CHLORIDE FLUSH 0.9% 10 ML SYRINGE IVP PRN (21:30)
[2019-08-03 06:16] LABS: BASOPHILS % (AUTO) 0.1 %; HGB - HEMOGLOBIN 8.3 g/dL (14.0-18.0); LYMPHOCYTES # (AUTO) 0.6 10^3/uL (1.5-3.5); LYMPHOCYTES % (AUTO) 3.9 %; MEAN CORPUSCULAR HEMOGLOBIN 33.2 pg (27.0-31.0); MEAN CORPUSCULAR HGB CONC 31.1 g/dL (32.0-36.0); MEAN CORPUSCULAR VOLUME 106.8 fL (80.0-94.0); MEAN PLATELET VOLUME 9.4 fL (7.4-11.4); MONOCYTES # (AUTO) 0.7 10^3/uL (0.0-1.0); MONOCYTES % (AUTO) 5.3 %; NEUTROPHILS # (AUTO) 12.7 10^3/uL (1.5-6.6); PLT - PLATELET COUNT 251 10^3/uL (130-450); RED CELL DISTRIBUTION WIDTH 20.4 % (12.0-15.0); WHITE BLOOD COUNT 14.1 x10^3/uL (4.8-10.8)
[2019-08-03 06:18] LABS: INR 0.8 (0.8-1.2); PT - PROTHROMBIN TIME 9.5 secs (9.9-12.6)
[2019-08-03] MEDS: PANTOPRAZOLE 40 MG TABLET PO SCH (06:19)
[2019-08-03] MEDS: PHENOL THROAT SPRAY 177 ML MM PRN (06:20)
[2019-08-03] MEDS: methylPREDNISolone SUCCINATE 40 MG/ML VIAL IVP SCH ×3 (06:20→21:34)
[2019-08-03 06:24] LABS: CALCIUM 7.6 mg/dL (8.5-10.3); CREATININE 0.6 mg/dL (0.6-1.2)
[2019-08-03 06:40] LABS: PLATELET ESTIMATE, MANUAL NORMAL (130-450,000) (NORMAL)
[2019-08-03] MEDS: FORMOTEROL FUMARATE NEB 20 MCG/2 ML INH SCH ×2 (07:23→20:24)
[2019-08-03] MEDS: BUDESONIDE 0.5 MG/2 ML NEB INH SCH ×2 (07:23→20:24)
[2019-08-03] MEDS: IPRATROPIUM/ALBUTEROL 3 ML NEB INH SCH ×4 (07:23→20:25)
[2019-08-03] MEDS: NYSTATIN 500000 UNITS/5 ML UDC PO SCH ×4 (08:42→20:47)
[2019-08-03] MEDS: FOLIC ACID 1 MG TABLET PO SCH (08:43)
[2019-08-03] MEDS: FERROUS GLUCONATE 324 MG TABLET PO SCH (08:43)
[2019-08-03] MEDS: SERTRALINE 25 MG TABLET PO SCH (08:43)
[2019-08-03] MEDS: THIAMINE 100 MG TABLET PO SCH (08:43)
[2019-08-03] MEDS: MAGNESIUM OXIDE 400 MG TABLET PO SCH (08:43)
[2019-08-03] MEDS: NEUTRA-PHOS 250 MG TABLET PO SCH ×3 (08:43→16:55)
[2019-08-03] MEDS: SODIUM CHLORIDE FLUSH 0.9% 10 ML SYRINGE IVP SCH ×3 (08:52→23:48)
--- NOTE | 2019-08-03 09:10 | PROVIDER PROGRESS NOTE ---
<Batool Cobos - Last Filed: 08/03/19 09:05> Subjective - Prog Note Date Prog Note Date: 08/03/19 Prog Note Time: 09:05 - Subjective Pt reports feeling: Improved Subjective: Patient was sitting up in bed, preparing to eat his breakfast upon arrival. He says that he only slept a few hours because he was feeling very figety. He says that he continues to feel better. He reports finishing his shave (the other half of his face that was unable to do the day prior because of his fatigue and shortness of breath.) Current Medications - Current Medications Current Medications: Active Medications Acetaminophen (Tylenol) 650 mg PO Q4HR PRN PRN Reason: Pain or Fever > 38C (100.4F) Last Admin: 08/02/19 18:30 Dose: 650 mg Albuterol () 2.5 mg INH RTQ4H PRN PRN Reason: Wheezing Albuterol/Ipratropium (Duoneb) 3 ml INH RTQID [facility] Last Admin: 08/03/19 07:23 Dose: 3 ml Budesonide (Pulmicort) 0.5 mg INH RTBID [facility] Last Admin: 08/03/19 07:23 Dose: 0.5 mg Ferrous Gluconate (Fergon) 324 mg PO DAILYWM [facility] Last Admin: 08/03/19 08:43 Dose: 324 mg Folic Acid () 1 mg PO DAILY [facility] Last Admin: 08/03/19 08:43 Dose: 1 mg Formoterol Fumarate (Perforomist) 20 mcg INH RTBID [facility] Last Admin: 08/03/19 07:23 Dose: 20 mcg Magnesium Oxide (Mag Ox) 400 mg PO DAILYWM [facility] Last Admin: 08/03/19 08:43 Dose: 400 mg Methylprednisolone (Solu-Medrol (40mg Vial)) 40 mg IVP TID [facility] Last Admin: 08/03/19 06:20 Dose: 40 mg Nystatin (Mycostatin) 5 ml PO QID [facility] Last Admin: 08/03/19 08:42 Dose: 5 ml Pantoprazole Sodium (Protonix) 40 mg PO QDAC [facility] Last Admin: 08/03/19 06:19 Dose: 40 mg Phenol/Menthol (Chloraseptic) 2 sprays MM Q2HR PRN PRN Reason: Throat Pain Last Admin: 08/03/19 06:20 Dose: 2 sprays Quetiapine Fumarate (Seroquel) 25 mg PO QPM [facility] Last Admin: 08/02/19 20:37 Dose: 25 mg Sertraline HCl (Zoloft) 25 mg PO DAILY [facility] Last Admin: 08/03/19 08:43 Dose: 25 mg Sodium Chloride (Normal Saline Flush 0.9%) 10 ml IVP PRN PRN PRN Reason: NEEDED PER PROVIDER ORDERS Last Admin: 08/02/19 21:30 Dose: 10 ml Sodium Chloride (Normal Saline Flush 0.9%) 10 ml IVP 0100,0900,1700 [facility] Last Admin: 08/03/19 08:52 Dose: 10 ml Sodium Phosphate (K-Phos Neutral) 250 mg PO TIDWM [facility] Last Admin: 08/03/19 08:43 Dose: 250 mg Thiamine HCl (Vitamin B-1) 100 mg PO DAILY [facility] Last Admin: 08/03/19 08:43 Dose: 100 mg Throat Lozenges (Cepacol) 1 lozenge MM Q2HR PRN PRN Reason: Throat pain Last Admin: 08/01/19 01:52 Dose: 1 lozenge Amlodipine Besylate 5 mg PO BID 02/03/13 Atenolol [Tenormin] 50 mg PO DAILY 02/03/13 Bupropion HCl 75 mg PO BID 02/03/13 Calcium Carbonate/Vitamin D3 [Calcium 250+D Tablet] 2 each PO BID 02/03/13 Loratadine [Children's Clear-Atadine] 10 mg PO DAILY 02/03/13 Montelukast [Singulair] 10 mg PO DAILY 02/03/13 Niacin [Niaspan] 500 mg PO TID 02/03/13 Budesonide/Formoterol Fumarate [Symbicort 160-4.5 Mcg Inhaler] 2 puffs INH BID 07/30/19 Cyanocobalamin (Vitamin B-12) [Vitamin B-12] 1,000 mcg PO DAILY 07/30/19 Docusate Sodium [Dss] 250 mg PO BID 07/30/19 Sildenafil Citrate 100 mg PO PRN PRN 07/30/19 predniSONE [Deltasone] 20 mg PO DAILY 07/30/19 Acetaminophen [Tylenol] 650 mg PO DAILY 08/02/19 Albuterol 2.5 mg INH BID 08/02/19 Albuterol Sulfate [Proair Respiclick] 2 puffs IH QID PRN 08/02/19 Cholecalciferol (Vitamin D3) [Vitamin D3] 4,000 units PO DAILY 08/02/19 Fluticasone [Flonase] 2 sprays YULIA DAILY 08/02/19 Ipratropium [Atrovent] 0.5 mg INH BID 08/02/19 Loperamide HCl [Imodium A-D] 2 mg PO PRN PRN 08/02/19 Magnesium Oxide 1,260 mg PO QPM 08/02/19 Magnesium Oxide 840 mg PO DAILY 08/02/19 Tiotropium Br/Olodaterol HCl [Stiolto Respimat Inhal [place]] 2 puffs INH DAILY 08/02/19 Warfarin Sodium [Coumadin] 2 mg PO SUM[place]ESA 08/02/19 Warfarin Sodium [Coumadin] 3 mg PO TUTHFR 08/02/19 Objective - Vital Signs/Intake & Output Reviewed Vital Signs: Yes Vital Signs: Vital Signs x48h Pulse Resp 08/03/19 07:24 85 20 Intake & Output: Intake & Output 07/31/19 08/01/19 08/02/19 08/03/19 23:59 23:59 23:59 23:59 Intake Total 3061 1720 1600 Output Total 4311 115 2564 850 Balance 1511 745 550 -850 - Objective General Appearance: positive: No acute distress, Alert Eyes Bilateral: positive: Normal inspection Neck: positive: Nml inspection Respiratory: positive: Chest non-tender, No respiratory distress, Breath sounds nml. negative: Wheezes, Rales, Rhonchi Cardiovascular: positive: Regular rate & rhythm, No murmur, No gallop Peripheral Pulses: 2+ Radial (R), 2+ Radial (L), 2+ Dorsalis pedis (R), 2+ Dorsalis pedis (L) Abdomen: positive: Non-tender, Nml bowel sounds, No distention, Hepatomegaly Back: positive: Nml inspection Skin: positive: Color nml, Warm, Dry Extremities: positive: Non-tender, Nml appearance, No pedal edema Neurologic/Psychiatric: positive: Oriented x3, Motor nml, Sensation nml - Lab Results Fish Bones: 08/03/19 05:40 08/03/19 05:40 Other Labs: Lab Results x24hrs 08/03/19 08/03/19 08/03/19 Range/Units 05:40 05:40 05:40 WBC 14.1 H (4.8-10.8) x10^3/uL RBC 2.50 L (4.70-6.10) 10^6/uL Hgb 8.3 L (14.0-18.0) g/dL Hct 26.7 L (42.0-52.0) % MCV 106.8 H (80.0-94.0) fL MCH 33.2 H (27.0-31.0) pg MCHC 31.1 L (32.0-36.0) g/dL RDW 20.4 H (12.0-15.0) % Plt Count 251 (130-450) 10^3/uL MPV 9.4 (7.4-11.4) fL Neut # (Auto) 12.7 H (1.5-6.6) 10^3/uL Lymph # (Auto) 0.6 L (1.5-3.5) 10^3/uL [place] # (Auto) 0.7 (0.0-1.0) 10^3/uL Eos # (Auto) 0.0 (0.0-0.7) 10^3/uL Baso # (Auto) 0.0 (0.0-0.1) 10^3/uL Absolute Nucleated RBC 0.00 x10^3/uL Nucleated RBC % 0.0 /100WBC Manual Slide Review Indicated Platelet Estimate NORMAL (130-450,000) (NORMAL) RBC Morph Micro Appear 1+ OVALOCYTES (NORMAL) PT 9.5 L (9.9-12.6) secs INR 0.8 (0.8-1.2) Sodium 141 (135-145) mmol/L Potassium 4.5 (3.5-5.0) mmol/L Chloride 110 (101-111) mmol/L Carbon Dioxide 24 (21-32) mmol/L Anion Gap 7.0 (6-13) BUN 12 (6-20) mg/dL Creatinine 0.6 (0.6-1.2) mg/dL Estimated GFR (MDRD) 132 (>89) Glucose 129 H (70-100) mg/dL Calcium 7.6 L (8.5-10.3) mg/dL ABX Reporting Has patient been on IV antibiotics over the past 48 hours?: No Sepsis Event Note (H) - Sepsis Criteria Sepsis Criteria: Recorded Heart Rate greater than 90 bpm, WBC count greater than 12,000 or less than 4000, Metabolic: lactate > 2 mmol/L, Hematologic: platelets < 100,000; INR > 1.5, or a PTT>60 seconds Assessment/Plan - Problem List (3) Anemia Qualifiers: Iron deficiency anemia type: chronic blood loss (4) Diarrhea Qualifiers: Diarrhea type: unspecified type Qualified Code(s): R19.7 - Diarrhea, unspecified (7) Leukocytosis Qualifiers: Leukocytosis type: unspecified Qualified Code(s): D72.829 - Elevated white blood cell count, unspecified <MtzJaimie L - Last Filed: 08/03/19 16:34> Subjective - Subjective Subjective: Patient seen and examined. No change in status other than his severe fatigue. Continues to be very reluctant to push himself too hard. He says that he just gets so short of breath he gets wiped out that it frightens him. Objective - Vital Signs/Intake & Output Vital Signs: Vital Signs x48h Temp Pulse Pulse Resp BP Pulse Ox 08/03/19 15:48 36.3 C L 107 H 18 130/74 96 08/03/19 14:57 106 H 20 08/03/19 11:02 110 H 20 08/03/19 09:20 36.5 C 115 H 20 130/65 96 Intake & Output: Intake & Output 07/31/19 08/01/19 08/02/19 08/03/19 23:59 23:59 23:59 23:59 Intake Total 3061 1720 1600 540 Output Total 7870 423 3482 850 Balance 1511 745 550 -310 - Objective General Appearance: positive: Other (Comfortable laying in bed. Laying at about 40 degrees. He is watching TV. After speaking to me respiratory rate does go up a bit. Quickly recovers.) Eyes Bilateral: positive: Other (Has had a bath, washes here, and is clean- shaven.) ENT: positive: No signs of dehydration Neck: positive: No JVD. negative: Stiff neck, Carotid bruit Respiratory: positive: Other (Prolonged end exhalation phase of breathing. Mild increased respiratory effort with speaking to me and sitting up for me. Qu ickly recovers.) Cardiovascular: positive: Other (agree) Abdomen: positive: Other (agree) Skin: positive: Other (agree) Extremities: positive: Other (agree) Neurologic/Psychiatric: positive: Other (agree) - Lab Results Fish Bones: 08/03/19 05:40 08/03/19 05:40 Other Labs: Lab Results x24hrs 08/03/19 08/03/19 08/03/19 Range/Units 05:40 05:40 05:40 WBC 14.1 H (4.8-10.8) x10^3/uL RBC 2.50 L (4.70-6.10) 10^6/uL Hgb 8.3 L (14.0-18.0) g/dL Hct 26.7 L (42.0-52.0) % MCV 106.8 H (80.0-94.0) fL MCH 33.2 H (27.0-31.0) pg MCHC 31.1 L (32.0-36.0) g/dL RDW 20.4 H (12.0-15.0) % Plt Count 251 (130-450) 10^3/uL MPV 9.4 (7.4-11.4) fL Neut # (Auto) 12.7 H (1.5-6.6) 10^3/uL Lymph # (Auto) 0.6 L (1.5-3.5) 10^3/uL [place] # (Auto) 0.7 (0.0-1.0) 10^3/uL Eos # (Auto) 0.0 (0.0-0.7) 10^3/uL Baso # (Auto) 0.0 (0.0-0.1) 10^3/uL Absolute Nucleated RBC 0.00 x10^3/uL Nucleated RBC % 0.0 /100WBC Manual Slide Review Indicated Platelet Estimate NORMAL (130-450,000) (NORMAL) RBC Morph Micro Appear 1+ OVALOCYTES (NORMAL) PT 9.5 L (9.9-12.6) secs INR 0.8 (0.8-1.2) Sodium 141 (135-145) mmol/L Potassium 4.5 (3.5-5.0) mmol/L Chloride 110 (101-111) mmol/L Carbon Dioxide 24 (21-32) mmol/L Anion Gap 7.0 (6-13) BUN 12 (6-20) mg/dL Creatinine 0.6 (0.6-1.2) mg/dL Estimated GFR (MDRD) 132 (>89) Glucose 129 H (70-100) mg/dL Calcium 7.6 L (8.5-10.3) mg/dL Assessment/Plan - Problem List (1) Moderate chronic obstructive pulmonary disease Impression: Patient seen with student. His COPD has definitely improved as his stay has gone on. He is still easily dyspneic, easily fatigued with minimal exertion. He will go on to cardiopulmonary rehab once he has completed physical rehab at senior care facility. He has been medically stable since yesterday. All of his major medical problems have been addressed. We are awaiting placement. (2) Alcohol abuse Impression: No delirium, no agitation during his stay. As such no withdrawal. He has macrocytosis. Electrolyte disorder associated with his alcohol abuse. All of this is been addressed with medication and supplementation. In the outpatient setting he says that he will seek help to stop drinking and smoking.
[2019-08-03] MEDS: SODIUM CHLORIDE FLUSH 0.9% 10 ML SYRINGE IVP PRN ×2 (13:18→21:34)
[2019-08-03] MEDS: QUEtiapine 25 MG TABLET PO SCH (20:47)
[2019-08-03] MEDS: ACETAMINOPHEN 325 MG TABLET PO PRN (21:34)
[2019-08-04 05:41] LABS: BASOPHILS % (AUTO) 0.1 %; HGB - HEMOGLOBIN 9.1 g/dL (14.0-18.0); LYMPHOCYTES # (AUTO) 0.8 10^3/uL (1.5-3.5); LYMPHOCYTES % (AUTO) 6.1 %; MEAN CORPUSCULAR HEMOGLOBIN 33.7 pg (27.0-31.0); MEAN CORPUSCULAR HGB CONC 31.7 g/dL (32.0-36.0); MEAN CORPUSCULAR VOLUME 106.3 fL (80.0-94.0); MEAN PLATELET VOLUME 9.4 fL (7.4-11.4); MONOCYTES # (AUTO) 0.8 10^3/uL (0.0-1.0); MONOCYTES % (AUTO) 5.6 %; NEUTROPHILS # (AUTO) 11.8 10^3/uL (1.5-6.6); NEUTROPHILS % (AUTO) 87.2 %; PLT - PLATELET COUNT 258 10^3/uL (130-450); RED CELL DISTRIBUTION WIDTH 19.5 % (12.0-15.0); WHITE BLOOD COUNT 13.5 x10^3/uL (4.8-10.8)
[2019-08-04 05:51] LABS: CALCIUM 8.2 mg/dL (8.5-10.3); CREATININE 0.6 mg/dL (0.6-1.2)
[2019-08-04 06:08] LABS: INR 0.8 (0.8-1.2); PT - PROTHROMBIN TIME 9.5 secs (9.9-12.6)
[2019-08-04] MEDS: methylPREDNISolone SUCCINATE 40 MG/ML VIAL IVP SCH (06:24)
[2019-08-04] MEDS: SODIUM CHLORIDE FLUSH 0.9% 10 ML SYRINGE IVP PRN (06:24)
[2019-08-04] MEDS: PANTOPRAZOLE 40 MG TABLET PO SCH (06:29)
[2019-08-04] MEDS: BENZOCAINE/MENTHOL LOZENGE MM PRN (06:33)
[2019-08-04] MEDS: BUDESONIDE 0.5 MG/2 ML NEB INH SCH ×2 (07:27→23:25)
[2019-08-04] MEDS: IPRATROPIUM/ALBUTEROL 3 ML NEB INH SCH ×4 (07:27→23:26)
[2019-08-04] MEDS: FORMOTEROL FUMARATE NEB 20 MCG/2 ML INH SCH ×2 (07:27→23:26)
--- NOTE | 2019-08-04 07:29 | PROVIDER PROGRESS NOTE ---
Subjective - Prog Note Date Prog Note Date: 08/04/19 Prog Note Time: 07:27 - Subjective Pt reports feeling: Improved Subjective: no new events. still reluctant to get up and walk bc he fears the severe manzano that ensues but he does work w PT and will get up to bathroom. cough is better but looser and he's bringing up more phlegm he states. No fever. no increased O2 need. But WBC continues to be elevated. today has had runny yellow diarrhea. no abd pain. Current Medications - Current Medications Current Medications: Active Medications Acetaminophen (Tylenol) 650 mg PO Q4HR PRN PRN Reason: Pain or Fever > 38C (100.4F) Last Admin: 08/03/19 21:34 Dose: 650 mg Albuterol () 2.5 mg INH RTQ4H PRN PRN Reason: Wheezing Albuterol/Ipratropium (Duoneb) 3 ml INH RTQID [facility] Last Admin: 08/04/19 07:27 Dose: 3 ml Budesonide (Pulmicort) 0.5 mg INH RTBID [facility] Last Admin: 08/04/19 07:27 Dose: 0.5 mg Ferrous Gluconate (Fergon) 324 mg PO DAILYWM [facility] Last Admin: 08/03/19 08:43 Dose: 324 mg Folic Acid () 1 mg PO DAILY [facility] Last Admin: 08/03/19 08:43 Dose: 1 mg Formoterol Fumarate (Perforomist) 20 mcg INH RTBID [facility] Last Admin: 08/04/19 07:27 Dose: 20 mcg Magnesium Oxide (Mag Ox) 400 mg PO DAILYWM [facility] Last Admin: 08/03/19 08:43 Dose: 400 mg Methylprednisolone (Solu-Medrol (40mg Vial)) 40 mg IVP TID [facility] Last Admin: 08/04/19 06:24 Dose: 40 mg Nystatin (Mycostatin) 5 ml PO QID [facility] Last Admin: 08/03/19 20:47 Dose: 5 ml Pantoprazole Sodium (Protonix) 40 mg PO QDAC [facility] Last Admin: 08/04/19 06:29 Dose: 40 mg Phenol/Menthol (Chloraseptic) 2 sprays MM Q2HR PRN PRN Reason: Throat Pain Last Admin: 08/03/19 06:20 Dose: 2 sprays Quetiapine Fumarate (Seroquel) 25 mg PO QPM [facility] Last Admin: 08/03/19 20:47 Dose: 25 mg Sertraline HCl (Zoloft) 25 mg PO DAILY [facility] Last Admin: 08/03/19 08:43 Dose: 25 mg Sodium Chloride (Normal Saline Flush 0.9%) 10 ml IVP PRN PRN PRN Reason: NEEDED PER PROVIDER ORDERS Last Admin: 08/04/19 06:24 Dose: 10 ml Sodium Chloride (Normal Saline Flush 0.9%) 10 ml IVP 0100,0900,1700 [facility] Last Admin: 08/03/19 23:48 Dose: 10 ml Sodium Phosphate (K-Phos Neutral) 250 mg PO TIDWM [facility] Last Admin: 08/03/19 16:55 Dose: 250 mg Thiamine HCl (Vitamin B-1) 100 mg PO DAILY [facility] Last Admin: 08/03/19 08:43 Dose: 100 mg Throat Lozenges (Cepacol) 1 lozenge MM Q2HR PRN PRN Reason: Throat pain Last Admin: 08/04/19 06:33 Dose: 1 lozenge Amlodipine Besylate 5 mg PO BID 02/03/13 Atenolol [Tenormin] 50 mg PO DAILY 02/03/13 Bupropion HCl 75 mg PO BID 02/03/13 Calcium Carbonate/Vitamin D3 [Calcium 250+D Tablet] 2 each PO BID 02/03/13 Loratadine [Children's Clear-Atadine] 10 mg PO DAILY 02/03/13 Montelukast [Singulair] 10 mg PO DAILY 02/03/13 Niacin [Niaspan] 500 mg PO TID 02/03/13 Budesonide/Formoterol Fumarate [Symbicort 160-4.5 Mcg Inhaler] 2 puffs INH BID 07/30/19 Cyanocobalamin (Vitamin B-12) [Vitamin B-12] 1,000 mcg PO DAILY 07/30/19 Docusate Sodium [Dss] 250 mg PO BID 07/30/19 Sildenafil Citrate 100 mg PO PRN PRN 07/30/19 predniSONE [Deltasone] 20 mg PO DAILY 07/30/19 Acetaminophen [Tylenol] 650 mg PO DAILY 08/02/19 Albuterol 2.5 mg INH BID 08/02/19 Albuterol Sulfate [Proair Respiclick] 2 puffs IH QID PRN 08/02/19 Cholecalciferol (Vitamin D3) [Vitamin D3] 4,000 units PO DAILY 08/02/19 Fluticasone [Flonase] 2 sprays YULIA DAILY 08/02/19 Ipratropium [Atrovent] 0.5 mg INH BID 08/02/19 Loperamide HCl [Imodium A-D] 2 mg PO PRN PRN 08/02/19 Magnesium Oxide 1,260 mg PO QPM 08/02/19 Magnesium Oxide 840 mg PO DAILY 08/02/19 Tiotropium Br/Olodaterol HCl [Stiolto Respimat Inhal [place]] 2 puffs INH DAILY 08/02/19 Warfarin Sodium [Coumadin] 2 mg PO [place]A 08/02/19 Warfarin Sodium [Coumadin] 3 mg PO TUTHFR 08/02/19 Objective - Vital Signs/Intake & Output Reviewed Vital Signs: Yes Vital Signs: Vital Signs x48h Temp Pulse Resp BP Pulse Ox 08/04/19 00:57 36.3 C L 108 H 18 124/79 94 Intake & Output: Intake & Output 08/01/19 08/02/19 08/03/19 08/04/19 23:59 23:59 23:59 23:59 Intake Total 1720 1600 660 250 Output Total 975 1050 1500 475 Balance 745 550 -840 -225 - Objective General Appearance: positive: No acute distress, Alert, Other (tall white male, his gauntness and cachectic appearance have improved since admit) Eyes Bilateral: positive: PERRL, EOMI ENT: positive: Pharynx nml Neck: positive: No JVD, Lymphadenopathy (R) (shotty), Lymphadenopathy (L) (shotty). negative: Stiff neck, Carotid bruit Respiratory: positive: Chest non-tender, No respiratory distress, Wheezes (faint and scattered and occasional). negative: Rales, Rhonchi Cardiovascular: positive: Regular rate & rhythm. negative: Gallop/S4, Friction rub Abdomen: positive: Non-tender, No organomegaly, Nml bowel sounds, No distention Skin: positive: Warm, Dry Extremities: positive: Non-tender, Pedal edema (has improved quite a bit since use of figure of 8 belkis wraps for 2 days) Neurologic/Psychiatric: positive: Oriented x3, CN's nml (2-12), Motor nml (just generalized weakness that is pronounced with more than 5 minutes of standing. He can't complete a task without hvaing to sit down. Going to the bathroom is a long excursion for him) - Lab Results Fish Bones: 08/04/19 05:30 08/04/19 05:30 Other Labs: Lab Results x24hrs 08/04/19 08/04/19 08/04/19 Range/Units 05:30 05:30 05:30 WBC 13.5 H (4.8-10.8) x10^3/uL RBC 2.70 L (4.70-6.10) 10^6/uL Hgb 9.1 L (14.0-18.0) g/dL Hct 28.7 L (42.0-52.0) % MCV 106.3 H (80.0-94.0) fL MCH 33.7 H (27.0-31.0) pg MCHC 31.7 L (32.0-36.0) g/dL RDW 19.5 H (12.0-15.0) % Plt Count 258 (130-450) 10^3/uL MPV 9.4 (7.4-11.4) fL Neut # (Auto) 11.8 H (1.5-6.6) 10^3/uL Lymph # (Auto) 0.8 L (1.5-3.5) 10^3/uL [place] # (Auto) 0.8 (0.0-1.0) 10^3/uL Eos # (Auto) 0.0 (0.0-0.7) 10^3/uL Baso # (Auto) 0.0 (0.0-0.1) 10^3/uL Absolute Nucleated RBC 0.00 x10^3/uL Nucleated RBC % 0.0 /100WBC PT 9.5 L (9.9-12.6) secs INR 0.8 (0.8-1.2) Sodium 141 (135-145) mmol/L Potassium 4.6 (3.5-5.0) mmol/L Chloride 110 (101-111) mmol/L Carbon Dioxide 25 (21-32) mmol/L Anion Gap 6.0 (6-13) BUN 12 (6-20) mg/dL Creatinine 0.6 (0.6-1.2) mg/dL Estimated GFR (MDRD) 132 (>89) Glucose 121 H (70-100) mg/dL Calcium 8.2 L (8.5-10.3) mg/dL ABX Reporting Has patient been on IV antibiotics over the past 48 hours?: No Sepsis Event Note (H) - Sepsis Criteria Sepsis Criteria: Recorded Heart Rate greater than 90 bpm, WBC count greater than 12,000 or less than 4000, Metabolic: lactate > 2 mmol/L, Hematologic: platelets < 100,000; INR > 1.5, or a PTT>60 seconds Assessment/Plan - Problem List (1) Moderate chronic obstructive pulmonary disease Impression: Over the course of his hospitalization his COPD has definitely improved. The wheezing, rhonchi have almost completely resolved. There are times when his lungs are completely clear. However his dyspnea on exertion from severe deconditioning has minimally improved. This is his main limitation when he tries to do simple things such as getting up to shower. It took him 2 days to shave and shower. At home he describes taking 4 to 5 hours to make dinner because he does not have the strength. Plan: Continue DuoNeb at a fixed schedule, albuterol as needed, budesonide, Perforomist. He has now been 6 days. We will stop steroids. After therapy for strength and conditioning at senior living facility, he agrees to register with cardiopulmonary rehab. (2) Alcohol abuse Impression: Resulting in macrocytic anemia, anemia, but no tremors. No gait ataxia. Did not have withdrawal during his admission. He is on B12 and folate and thiamine at this time. (3) Leukocytosis Impression: Continues. His cough is changed and that it is looser, slightly more productive. But there is no increased oxygen requirement. No increased r espiratory distress. Will check chest x-ray, 2 view in the department. This may be due to his steroid use. That will be stopping today. Qualifiers: Leukocytosis type: unspecified Qualified Code(s): D72.829 - Elevated white blood cell count, unspecified (4) Adult failure to thrive syndrome Impression: Tremendous amount of weight loss in the last few months. Some of it was due to to his alcohol abuse. Some of it was due to the fact that he did not have the strength to cook for himself. Some of it was from his COPD and dyspnea on exertion. His sister started buying him groceries in February after she realized that he did not want any groceries for the month of January. COPD is under control. He has not any alcohol while here. Plan: Physical therapy has been working with him. Although he is contact-guard assist, and is able to sit up, he is true lack of strength comes forward when he tries to do simple tasks. Physical therapy will continue to work with him. And plan is for senior living facility placement for improving his deconditioning, so that he can return to independent living in his home. (5) Severe protein-calorie malnutrition Impression: Here he is receiving regular nutrition. Eating 100% of his meals independently. His last albumin was July 30 and was 2.6. Total protein was 5.1 that same day. Will reassess protein status with add on blood draws from this morning's chemistries. (6) Diarrhea Impression: unknown if malabsorpton, or due to alcohol. will check stool culture, fecal fat qual, fecal wbc lomotil prn Qualifiers: Diarrhea type: unspecified type Qualified Code(s): R19.7 - Diarrhea, unspecified
[2019-08-04 07:57] LABS: ALBUMIN 2.4 g/dL (3.2-5.5); TOTAL PROTEIN 4.7 g/dL (6.7-8.2)
[2019-08-04] MEDS: NYSTATIN 500000 UNITS/5 ML UDC PO SCH ×4 (09:23→20:48)
[2019-08-04] MEDS: FERROUS GLUCONATE 324 MG TABLET PO SCH (09:23)
[2019-08-04] MEDS: MAGNESIUM OXIDE 400 MG TABLET PO SCH (09:23)
[2019-08-04] MEDS: NEUTRA-PHOS 250 MG TABLET PO SCH ×3 (09:23→17:20)
[2019-08-04] MEDS: FOLIC ACID 1 MG TABLET PO SCH (09:23)
[2019-08-04] MEDS: THIAMINE 100 MG TABLET PO SCH (09:23)
[2019-08-04] MEDS: SERTRALINE 25 MG TABLET PO SCH (09:23)
[2019-08-04] MEDS: SODIUM CHLORIDE FLUSH 0.9% 10 ML SYRINGE IVP SCH ×2 (09:29→20:48)
--- NOTE | 2019-08-04 09:36 | XRAY Report ---
Reason: cough, elev WBC Procedure Date: 08/04/2019 Accession Number: [id number] / [id number] Procedure: XR - Chest 2 View X-Ray CPT Code: 17229 Final Report FULL RESULT: EXAM: CHEST RADIOGRAPHY EXAM DATE: 08/04/2019 09:20 AM. CLINICAL HISTORY: Cough, elevated WBC. COMPARISON: CHEST 1 VIEW 07/31/2019 3:40 PM. TECHNIQUE: 2 views. FINDINGS: Lungs/Pleura: No focal opacities evident. No pleural effusion. No pneumothorax. High lung volumes with flattened diaphragm. Mediastinum: Heart and mediastinal contours are unremarkable. Other: None. IMPRESSION: No acute cardiopulmonary abnormality. High lung volumes with flattening of diaphragms is often seen with COPD. RADIA
[2019-08-04 09:42] LABS: BILIRUBIN,URINE NEGATIVE (NEGATIVE); GLUCOSE, URINE (UA) NEGATIVE (NEGATIVE); KETONES,URINE (UA) NEGATIVE (NEGATIVE); LEUKOCYTE ESTERASE, URINE NEGATIVE (NEGATIVE); NITRITE,URINE NEGATIVE (NEGATIVE); OCCULT BLOOD,URINE NEGATIVE (NEGATIVE); PROTEIN,URINE NEGATIVE (NEGATIVE); UROBILINOGEN,URINE 0.2 (NORMAL) E.U./dL (NORMAL)
[2019-08-04 09:53] LABS: CLARITY,URINE CLEAR (CLEAR)
[2019-08-04 10:03] LABS: BACTERIA,URINE Moderate /HPF (None Seen); RBC,URINE 0-5 /HPF (0-5); SQUAMOUS EPITHELIAL CELL,UR RARE Squamous (<= Few)
[2019-08-04] MEDS ORDERED: DIPHENOX/ATROPINE 2.5/0.025 MG TABLET PO PRN (10:09)
[2019-08-04] MEDS: DIPHENOX/ATROPINE 2.5/0.025 MG TABLET PO PRN (17:23)
[2019-08-04] MEDS: ACETAMINOPHEN 325 MG TABLET PO PRN (20:47)
[2019-08-04] MEDS: QUEtiapine 25 MG TABLET PO SCH (20:48)
[2019-08-05] MEDS: SODIUM CHLORIDE FLUSH 0.9% 10 ML SYRINGE IVP SCH ×3 (00:14→17:12)
[2019-08-05] MEDS: PANTOPRAZOLE 40 MG TABLET PO SCH (06:20)
[2019-08-05] MEDS: FORMOTEROL FUMARATE NEB 20 MCG/2 ML INH SCH ×2 (08:15→19:43)
[2019-08-05] MEDS: BUDESONIDE 0.5 MG/2 ML NEB INH SCH ×2 (08:15→19:43)
[2019-08-05] MEDS: IPRATROPIUM/ALBUTEROL 3 ML NEB INH SCH ×3 (08:15→19:43)
[2019-08-05 09:00] LABS: BASOPHILS % (AUTO) 2.4 %; EOSINOPHILS % (AUTO) 1.2 %; LYMPHOCYTES % (AUTO) 9.9 %; MEAN CORPUSCULAR HEMOGLOBIN 33.7 pg (27.0-31.0); MEAN CORPUSCULAR HGB CONC 32.1 g/dL (32.0-36.0); MEAN CORPUSCULAR VOLUME 105.1 fL (80.0-94.0); MEAN PLATELET VOLUME 9.5 fL (7.4-11.4); MONOCYTES % (AUTO) 8.4 %; NEUTROPHILS % (AUTO) 68.8 %; PLT - PLATELET COUNT 669 10^3/uL (130-450); RED BLOOD COUNT 3.56 10^6/uL (4.70-6.10); RED CELL DISTRIBUTION WIDTH 19.4 % (12.0-15.0); WHITE BLOOD COUNT 29.8 x10^3/uL (4.8-10.8)
[2019-08-05 09:09] LABS: ALBUMIN 2.7 g/dL (3.2-5.5); ALBUMIN/GLOBULIN RATIO 0.9 (1.0-2.2); BILIRUBIN,TOTAL 0.9 mg/dL (0.2-1.0); CALCIUM 8.7 mg/dL (8.5-10.3); CREATININE 0.7 mg/dL (0.6-1.2); MAGNESIUM 1.4 mg/dL (1.7-2.8); PHOSPHORUS 2.4 mg/dL (2.5-4.6); TOTAL PROTEIN 5.6 g/dL (6.7-8.2)
[2019-08-05] MEDS ORDERED: MAGNESIUM SULFATE 2 GRAM 2 GM/50 ML BAG IV ONE (09:13)
[2019-08-05 09:14] LABS: ABNORMAL LYMPHS % (MANUAL) 0 %; BAND NEUTROPHILS % (MANUAL) 0 %
[2019-08-05] MEDS: MAGNESIUM OXIDE 400 MG TABLET PO SCH (09:14)
[2019-08-05] MEDS: FOLIC ACID 1 MG TABLET PO SCH (09:14)
[2019-08-05] MEDS: SERTRALINE 25 MG TABLET PO SCH (09:14)
[2019-08-05] MEDS: NYSTATIN 500000 UNITS/5 ML UDC PO SCH ×4 (09:14→21:23)
[2019-08-05] MEDS: NEUTRA-PHOS 250 MG TABLET PO SCH ×3 (09:14→17:12)
[2019-08-05] MEDS: THIAMINE 100 MG TABLET PO SCH (09:15)
[2019-08-05] MEDS: FERROUS GLUCONATE 324 MG TABLET PO SCH (09:15)
[2019-08-05] MEDS: DIPHENOX/ATROPINE 2.5/0.025 MG TABLET PO PRN (09:23)
[2019-08-05 09:52] LABS: BASOPHILS # (MANUAL) 0.9 10^3/uL (0-0.1); BASOPHILS % (MANUAL) 3 %; LYMPHOCYTES % (MANUAL) 10 %; MONOCYTES # (MANUAL) 1.2 10^3/uL (0.0-1.0)
[2019-08-05 09:53] LABS: PLATELET ESTIMATE, MANUAL INCREASED (>450,000) (NORMAL); PLATELET MORPHOLOGY PLATELET C (NORMAL)
[2019-08-05 09:54] LABS: DIFFERENTIAL COMMENT MANUAL DIFFERENTIAL
--- NOTE | 2019-08-05 10:03 | XRAY Report ---
Reason: sob Procedure Date: 08/05/2019 Accession Number: [id number] / [id number] Procedure: XR - Chest 1 View X-Ray CPT Code: 32223 Final Report FULL RESULT: EXAM: CHEST RADIOGRAPHY EXAM DATE: 08/05/2019 09:31 AM. CLINICAL HISTORY: Shortness of breath. COMPARISON: CHEST 2 VIEW 08/04/2019 9:07 AM. TECHNIQUE: 1 view. FINDINGS: Lungs/Pleura: Scattered nodules measuring 5 mm or less are again seen including the left lung apex, likely containing calcium and representing granulomata given their visibility at this size on plain radiography. There is no consolidation.. No pleural effusion. No pneumothorax. Mediastinum: Within exam limitations, the cardiomediastinal contour is normal. Other: None. IMPRESSION: No acute cardiopulmonary abnormality detected. Redemonstration of small pulmonary nodules which are felt to likely be calcified. RADIA
[2019-08-05] MEDS: SODIUM CHLORIDE 0.9% 1,000 ML IV SCH (10:41)
[2019-08-05] MEDS: cefTRIAXone 1 GM in SODIUM CHLORIDE 0.9% MINIBAG 100 ML IV SCH (11:39)
[2019-08-05 13:36] LABS: BILIRUBIN,URINE NEGATIVE (NEGATIVE); GLUCOSE, URINE (UA) NEGATIVE (NEGATIVE); KETONES,URINE (UA) NEGATIVE (NEGATIVE); LEUKOCYTE ESTERASE, URINE NEGATIVE (NEGATIVE); NITRITE,URINE NEGATIVE (NEGATIVE); OCCULT BLOOD,URINE NEGATIVE (NEGATIVE); PH,URINE 5.5 PH (5.0-7.5); PROTEIN,URINE NEGATIVE (NEGATIVE); UROBILINOGEN,URINE 0.2 (NORMAL) E.U./dL (NORMAL)
[2019-08-05 13:38] LABS: CLARITY,URINE HAZY (CLEAR)
[2019-08-05 13:40] LABS: BACTERIA,URINE Few /HPF (None Seen); RBC,URINE 0-5 /HPF (0-5); SQUAMOUS EPITHELIAL CELL,UR RARE Squamous (<= Few)
[2019-08-05] MEDS: SACCHAROMYCES BOULARDII 250 MG CAPSULE PO SCH ×2 (14:03→17:12)
--- NOTE | 2019-08-05 14:59 | PROVIDER PROGRESS NOTE ---
Assessment/Plan - Problem List (1) UTI (urinary tract infection) Assessment/Plan: Pt has significant elevated WBC to 29. UA culture 08/04/2019 reveals two positive organism negative smita. start on Rocephin, sensitive study is pending. lab and vital monitor (2) chronic obstructive pulmonary disease exacerbation Impression: STABLE. pt report he took oxygen for over ten years, pt has hx of severe COPD. Now he has 98% sat on 2-3 liter of O2 Continue DuoNeb at a fixed schedule, albuterol as needed, budesonide, Perforomist. stop steroids. After therapy for strength and conditioning at long term facility, he agrees to register with cardiopulmonary rehab. (3) Alcohol abuse Impression: Resulting in macrocytic anemia, continue on B12 and folate and thiamine at this time. (4) Leukocytosis Impression: significant elevated WBC even steroid is stopped. treat with antibiotics for UTI order blood culture (5) Adult failure to thrive syndrome Impression: combination of his COPD, alcohol abuse, and lack of capacity to make her own food and weakness plan: Physical therapy will continue to work with him. And plan is for long term facility placement for improving his deconditioning, so that he can return to independent living in his home. (6) Severe protein-calorie malnutrition Impression: stable and improved. pt eat 100% of his meal (7) Diarrhea Impression: unknown if malabsorpton, or due to alcohol. check C.Dif continue lomotil prn lab and vital monitor pt - Current Meds Current Meds: Current Medications Generic Name Dose Route Start Last Admin Trade Name Freq PRN Reason Stop Dose Admin Acetaminophen 650 mg 08/02/19 18:24 08/04/19 20:47 Tylenol PO 650 mg Q4HR PRN Administration Pain or Fever > 38C (100.4F) Albuterol/Ipratropium 3 ml 07/30/19 11:00 08/05/19 08:15 Duoneb INH 3 ml RTQID LOY Administration Budesonide 0.5 mg 07/30/19 11:00 08/05/19 08:15 Pulmicort INH 0.5 mg RTBID LOY Administration Diphenoxylate HCl/Atropine 1 tab 08/04/19 17:07 08/05/19 09:23 Lomotil PO 1 tab Q2H PRN Administration Diarrhea Ferrous Gluconate 324 mg 08/01/19 15:00 08/05/19 09:15 Fergon PO 324 mg DAILYWM LOY Administration Folic Acid 1 mg 07/31/19 13:00 08/05/19 09:14 PO 1 mg DAILY LOY Administration Formoterol Fumarate 20 mcg 07/30/19 11:00 08/05/19 08:15 Perforomist INH 20 mcg RTBID LOY Administration Sodium Chloride 1,000 mls @ 83.333 mls/hr 08/05/19 10:00 08/05/19 10:41 Normal Saline 0.9% IV 08/06/19 09:59 83.333 mls/hr .Q12H LOY Administration Ceftriaxone Sodium 1 gm/ 100 mls @ 200 mls/hr 08/05/19 11:00 08/05/19 12:15 Sodium Chloride IV Infused DAILY LOY Infusion Magnesium Oxide 400 mg 08/02/19 08:00 08/05/19 09:14 Mag Ox PO 400 mg DAILYWM LOY Administration Nystatin 5 ml 07/30/19 19:00 08/05/19 14:03 Mycostatin PO 5 ml QID LOY Administration Pantoprazole Sodium 40 mg 07/30/19 07:00 08/05/19 06:20 Protonix PO 40 mg QDAC LOY Administration Phenol/Menthol 2 sprays 08/01/19 01:49 08/03/19 06:20 Chloraseptic MM 2 sprays Q2HR PRN Administration Throat Pain Quetiapine Fumarate 25 mg 08/01/19 21:00 08/04/19 20:48 Seroquel PO 25 mg QPM LOY Administration Saccharomyces Boulardii 250 mg 08/05/19 10:37 08/05/19 14:03 Florastor PO 250 mg BIDWM LOY Administration Sertraline HCl 25 mg 08/02/19 09:00 08/05/19 09:14 Zoloft PO 25 mg DAILY LOY Administration Sodium Chloride 10 ml 07/30/19 06:56 08/04/19 06:24 Normal Saline Flush 0.9% IVP 10 ml PRN PRN Administration NEEDED PER PROVIDER ORDERS Sodium Chloride 10 ml 07/30/19 09:00 08/05/19 09:15 Normal Saline Flush 0.9% IVP 10 ml 0100,0900,1700 LOY Administration Sodium Phosphate 250 mg 08/01/19 13:00 08/05/19 11:39 K-Phos Neutral PO 250 mg TIDWM LOY Administration Thiamine HCl 100 mg 07/31/19 13:00 08/05/19 09:15 Vitamin B-1 PO 100 mg DAILY LOY Administration Throat Lozenges 1 lozenge 07/30/19 16:58 08/04/19 06:33 Cepacol MM 1 lozenge Q2HR PRN Administration Throat pain - Lab Result Fish Bone Diagrams: 08/05/19 08:40 08/05/19 08:40 - Additional Planning My Orders: My Active Orders 08/05/19 C DIFF PCR Urgent 08/05/19 10:00 Sodium Chloride 0.9% [Normal Saline 0.9%] 1,000 ml IV 83.333 mls/hr 08/05/19 10:37 Saccharomyces Boulardii [Florastor] 250 mg PO BIDWM 08/05/19 11:00 cefTRIAXone [Rocephin] 1 gm Sodium Chloride 0.9% Minibag [Normal Saline 0.9% Minibag] 100 ml IV DAILY 08/05/19 11:23 Blood Culture [CULTURE, BLOOD #1] [] Urgent 08/05/19 12:15 Blood Culture [CULTURE, BLOOD #2] [] Urgent 08/05/19 15:00 CBC - COMP BLD CT W/AUTO DIFF [HEME] Timed 08/06/19 05:00 BMP - BASIC METABOLIC PANEL [CHEM] DAILYLAB CBC - COMP BLD CT W/AUTO DIFF [HEME] DAILYLAB MAGNESIUM [CHEM] DAILYLAB PHOSPHORUS [CHEM] DAILYLAB 08/07/19 05:00 BMP - BASIC METABOLIC PANEL [CHEM] DAILYLAB CBC - COMP BLD CT W/AUTO DIFF [HEME] DAILYLAB MAGNESIUM [CHEM] DAILYLAB PHOSPHORUS [CHEM] DAILYLAB 08/08/19 05:00 BMP - BASIC METABOLIC PANEL [CHEM] DAILYLAB CBC - COMP BLD CT W/AUTO DIFF [HEME] DAILYLAB MAGNESIUM [CHEM] DAILYLAB PHOSPHORUS [CHEM] DAILYLAB 08/09/19 05:00 BMP - BASIC METABOLIC PANEL [CHEM] DAILYLAB CBC - COMP BLD CT W/AUTO DIFF [HEME] DAILYLAB MAGNESIUM [CHEM] DAILYLAB PHOSPHORUS [CHEM] DAILYLAB 08/10/19 05:00 BMP - BASIC METABOLIC PANEL [CHEM] DAILYLAB CBC - COMP BLD CT W/AUTO DIFF [HEME] DAILYLAB Subjective - Subjective Patient Reports: Feeling Better Objective Vital Signs: Vital Signs - 24 hr 08/04/19 08/04/19 08/04/19 15:24 16:16 17:09 Temperature 36.5 C Heart Rate 106 H Heart Rate [ 119 H Brachial] Heart Rate [ 105 H Radial] Respiratory 18 20 Rate Blood Pressure 129/79 [Right Brachial artery] O2 Saturation 96 08/04/19 08/05/19 08/05/19 23:26 00:05 07:53 Temperature 36.4 C L 36.3 C L Heart Rate 104 H Heart Rate [ 106 H 115 H Brachial] Heart Rate [ 115 H Radial] Respiratory 20 16 20 Rate Blood Pressure 127/73 108/72 [Right Brachial artery] O2 Saturation 98 98 08/05/19 08:15 Temperature Heart Rate 118 H Heart Rate [ Brachial] Heart Rate [ Radial] Respiratory 20 Rate Blood Pressure [Right Brachial artery] O2 Saturation Oxygen O2 Source Nasal cannula Oxygen Flow Rate 2 I&O (Last 24 Hrs): Intake and Output Totals x24h 08/03/19 08/04/19 08/05/19 23:59 23:59 23:59 Intake Total 660 1426 1640 Output Total 1500 1100 875 Balance -840 326 765 General: Alert, Oriented x3, No acute distress HEENT: Atraumatic Neck: Supple Lymphatic: no adenopathy Neuro: Alert, Non Focal, Oriented Times 3 Cardiovascular: Regular rate, Normal S1, Normal S2 Respiratory: Chest non-tender, No respiratory distress Abdomen: Normal bowel sounds, Soft Extremities: No edema, Normal pulses - Results Results: Laboratory Results WBC 29.8 x10^3/uL (4.8-10.8) H 08/05/19 08:40 RBC 3.56 10^6/uL (4.70-6.10) L 08/05/19 08:40 Hgb 12.0 g/dL (14.0-18.0) L 08/05/19 08:40 Hct 37.4 % (42.0-52.0) L 08/05/19 08:40 MCV 105.1 fL (80.0-94.0) H 08/05/19 08:40 MCH 33.7 pg (27.0-31.0) H 08/05/19 08:40 MCHC 32.1 g/dL (32.0-36.0) 08/05/19 08:40 RDW 19.4 % (12.0-15.0) H 08/05/19 08:40 Plt Count 669 10^3/uL (130-450) H 08/05/19 08:40 MPV 9.5 fL (7.4-11.4) 08/05/19 08:40 Reticulocyte % (Auto) 13.09 % (0.5-2.3) H 07/30/19 05:40 Neut # (Auto) Not Reportable 08/05/19 08:40 Lymph # (Auto) Not Reportable 08/05/19 08:40 [place] # (Auto) Not Reportable 08/05/19 08:40 Eos # (Auto) Not Reportable 08/05/19 08:40 Baso # (Auto) Not Reportable 08/05/19 08:40 Absolute Nucleated RBC 0.00 x10^3/uL 08/04/19 05:30 Total Counted 100 08/05/19 08:40 Band Neuts % (Manual) 0 % (0-10) 08/05/19 08:40 Abnorm Lymph % (Manual) 0 % 08/05/19 08:40 Myelocytes % 1 % (-0) H 07/30/19 05:40 Nucleated RBC % 0.0 /100WBC 08/04/19 05:30 Neutrophils # (Manual) 24.7 10^3/uL (1.5-6.6) H 08/05/19 08:40 Lymphocytes # (Manual) 3.0 10^3/uL (1.5-3.5) 08/05/19 08:40 Monocytes # (Manual) 1.2 10^3/uL (0.0-1.0) H 08/05/19 08:40 Eosinophils # (Manual) 0.0 10^3/uL (0-0.7) 08/05/19 08:40 Basophils # (Manual) 0.9 10^3/uL (0-0.1) H 08/05/19 08:40 Nucleated RBCs 1 % 08/05/19 08:40 Differential Comment MANUAL DIFFERENTIAL 08/05/19 08:40 Manual Slide Review Indicated 08/05/19 08:40 WBC Morphology NORMAL APPEARANCE (NORMAL) 07/31/19 05:40 Platelet Estimate INCREASED (>450,000) (NORMAL) 08/05/19 08:40 Platelet Morphology PLATELET C (NORMAL) 08/05/19 08:40 RBC Morph Micro Appear 2+ ANISOCYTOSIS (NORMAL) 1+ POLYCHROMASIA (NORMAL) 07/31/19 05:40 RBC Morph Micro Appear 1+ ANISOCYTOSIS (NORMAL) 1+ HYPOCHROMASIA (NORMAL) 1+ POLYCHROMASIA (NORMAL) 1+ OVALOCYTES (NORMAL) 08/01/19 04:35 RBC Morph Micro Appear 1+ ANISOCYTOSIS (NORMAL) 1+ HYPOCHROMASIA (NORMAL) 1+ POLYCHROMASIA (NORMAL) 1+ OVALOCYTES (NORMAL) 08/01/19 04:35 RBC Morph Micro Appear 1+ ANISOCYTOSIS (NORMAL) 1+ HYPOCHROMASIA (NORMAL) 1+ POLYCHROMASIA (NORMAL) 1+ OVALOCYTES (NORMAL) 08/01/19 04:35 RBC Morph Micro Appear 1+ ANISOCYTOSIS (NORMAL) 1+ HYPOCHROMASIA (NORMAL) 1+ POLYCHROMASIA (NORMAL) 1+ OVALOCYTES (NORMAL) 08/01/19 04:35 RBC Morph Micro Appear 1+ ANISOCYTOSIS (NORMAL) 1+ MACROCYTOSIS (NORMAL) 1+ HYPOCHROMASIA (NORMAL) 1+ POLYCHROMASIA (NORMAL) 1+ OVALOCYTES (NORMAL) 08/02/19 05:16 RBC Morph Micro Appear 1+ ANISOCYTOSIS (NORMAL) 1+ MACROCYTOSIS (NORMAL) 1+ HYPOCHROMASIA (NORMAL) 1+ POLYCHROMASIA (NORMAL) 1+ OVALOCYTES (NORMAL) 08/02/19 05:16 RBC Morph Micro Appear 1+ ANISOCYTOSIS (NORMAL) 1+ MACROCYTOSIS (NORMAL) 1+ HYPOCHROMASIA (NORMAL) 1+ POLYCHROMASIA (NORMAL) 1+ OVALOCYTES (NORMAL) 08/02/19 05:16 RBC Morph Micro Appear 1+ ANISOCYTOSIS (NORMAL) 1+ MACROCYTOSIS (NORMAL) 1+ HYPOCHROMASIA (NORMAL) 1+ POLYCHROMASIA (NORMAL) 1+ OVALOCYTES (NORMAL) 08/02/19 05:16 RBC Morph Micro Appear 1+ ANISOCYTOSIS (NORMAL) 1+ MACROCYTOSIS (NORMAL) 1+ HYPOCHROMASIA (NORMAL) 1+ POLYCHROMASIA (NORMAL) 1+ OVALOCYTES (NORMAL) 08/02/19 05:16 RBC Morph Micro Appear 1+ ANISOCYTOSIS (NORMAL) 1+ MACROCYTOSIS (NORMAL) 1+ HYPOCHROMASIA (NORMAL) 1+ POLYCHROMASIA (NORMAL) 1+ OVALOCYTES (NORMAL) 08/03/19 05:40 RBC Morph Micro Appear 1+ ANISOCYTOSIS (NORMAL) 1+ MACROCYTOSIS (NORMAL) 1+ HYPOCHROMASIA (NORMAL) 1+ POLYCHROMASIA (NORMAL) 1+ OVALOCYTES (NORMAL) 08/03/19 05:40 RBC Morph Micro Appear 1+ ANISOCYTOSIS (NORMAL) 1+ MACROCYTOSIS (NORMAL) 1+ HYPOCHROMASIA (NORMAL) 1+ POLYCHROMASIA (NORMAL) 1+ OVALOCYTES (NORMAL) 08/03/19 05:40 RBC Morph Micro Appear 1+ ANISOCYTOSIS (NORMAL) 1+ MACROCYTOSIS (NORMAL) 1+ HYPOCHROMASIA (NORMAL) 1+ POLYCHROMASIA (NORMAL) 1+ OVALOCYTES (NORMAL) 08/03/19 05:40 RBC Morph Micro Appear 1+ ANISOCYTOSIS (NORMAL) 1+ MACROCYTOSIS (NORMAL) 1+ HYPOCHROMASIA (NORMAL) 1+ POLYCHROMASIA (NORMAL) 1+ OVALOCYTES (NORMAL) 08/03/19 05:40 RBC Morph Micro Appear 1+ ANISOCYTOSIS (NORMAL) 1+ MACROCYTOSIS (NORMAL) 1+ POLYCHROMASIA (NORMAL) OVALOCYTES (NORMAL) 08/05/19 08:40 RBC Morph Micro Appear 1+ ANISOCYTOSIS (NORMAL) 1+ MACROCYTOSIS (NORMAL) 1+ POLYCHROMASIA (NORMAL) OVALOCYTES (NORMAL) 08/05/19 08:40 RBC Morph Micro Appear 1+ ANISOCYTOSIS (NORMAL) 1+ MACROCYTOSIS (NORMAL) 1+ POLYCHROMASIA (NORMAL) OVALOCYTES (NORMAL) 08/05/19 08:40 RBC Morph Micro Appear 1+ ANISOCYTOSIS (NORMAL) 1+ MACROCYTOSIS (NORMAL) 1+ POLYCHROMASIA (NORMAL) OVALOCYTES (NORMAL) 08/05/19 08:40 Absolute Retic 0.207 10^6/uL (0.020-0.110) H 07/30/19 05:40 Hematology Spec Commnt 0540 07/30/19 06:31 PT 9.5 secs (9.9-12.6) L 08/04/19 05:30 INR 0.8 (0.8-1.2) 08/04/19 05:30 Bld Gas Analysis Time 1604 07/31/19 16:04 Sample Site RIGHT RADIAL 07/31/19 16:04 ABG pH 7.47 (7.35-7.45) H 07/31/19 16:04 ABG pCO2 34 mmHg (34-45) 07/31/19 16:04 ABG pO2 66 mmHg (80-100) L 07/31/19 16:04 ABG HCO3 23.7 mmol/L (22.0-26.0) 07/31/19 16:04 ABG Total CO2 24.7 MMOL/L (21.0-29.0) 07/31/19 16:04 ABG O2 Saturation 94 % (94-98) 07/31/19 16:04 ABG Base Excess 0.4 mmol/L (-2.0-3.0) 07/31/19 16:04 Janes Test POSITIVE 07/31/19 16:04 O2 Delivery Device NASAL CANNULA 07/31/19 16:04 O2 Liters/Min 3.00 LPM 07/31/19 16:04 Sodium 141 mmol/L (135-145) 08/05/19 08:40 Potassium 4.0 mmol/L (3.5-5.0) 08/05/19 08:40 Chloride 106 mmol/L (101-111) 08/05/19 08:40 Carbon Dioxide 26 mmol/L (21-32) 08/05/19 08:40 Anion Gap 9.0 (6-13) 08/05/19 08:40 BUN 13 mg/dL (6-20) 08/05/19 08:40 Creatinine 0.7 mg/dL (0.6-1.2) 08/05/19 08:40 Estimated GFR (MDRD) 111 (>89) 08/05/19 08:40 Glucose 111 mg/dL (70-100) H 08/05/19 08:40 Lactic Acid 2.9 mmol/L (0.5-2.2) H 07/30/19 05:40 Calcium 8.7 mg/dL (8.5-10.3) 08/05/19 08:40 Phosphorus 2.4 mg/dL (2.5-4.6) L 08/05/19 08:40 Magnesium 1.4 mg/dL (1.7-2.8) L 08/05/19 08:40 Iron 39 ug/dL (45-182) L 07/30/19 05:40 TIBC 319 ug/dL (250-450) 07/30/19 05:40 % Saturation 12 % (20-50) L 07/30/19 05:40 Transferrin 228 mg/dL (180-329) 07/30/19 05:40 Ferritin 66.0 ng/mL (23.9-336.2) 07/30/19 05:40 Total Bilirubin 0.9 mg/dL (0.2-1.0) 08/05/19 08:40 AST 51 IU/L (10-42) H 08/05/19 08:40 ALT 81 IU/L (10-60) H 08/05/19 08:40 Alkaline Phosphatase 66 IU/L (42-121) 08/05/19 08:40 Lactate Dehydrogenase 198 IU/L (91-225) 07/30/19 05:40 B-Natriuretic Peptide 177 pg/mL (5-100) H 07/31/19 05:40 Total Protein 5.6 g/dL (6.7-8.2) L 08/05/19 08:40 Albumin 2.7 g/dL (3.2-5.5) L 08/05/19 08:40 Globulin 2.9 g/dL (2.1-4.2) 08/05/19 08:40 Albumin/Globulin Ratio 0.9 (1.0-2.2) L 08/05/19 08:40 Lipase 37 U/L (22-51) 07/30/19 05:40 Vitamin B12 258 pg/mL (180-914) 07/30/19 05:40 Folate 12.40 ng/mL (5.90 - >24.8) 07/30/19 05:40 Urine Color YELLOW 08/05/19 13:12 Urine Clarity HAZY (CLEAR) 08/05/19 13:12 Urine pH 5.5 PH (5.0-7.5) 08/05/19 13:12 Ur Specific [place] >=1.030 (1.002-1.030) H 08/05/19 13:12 Urine Protein NEGATIVE mg/dL (NEGATIVE) 08/05/19 13:12 Urine Glucose (UA) NEGATIVE mg/dL (NEGATIVE) 08/05/19 13:12 Urine Ketones NEGATIVE mg/dL (NEGATIVE) 08/05/19 13:12 Urine Occult Blood NEGATIVE (NEGATIVE) 08/05/19 13:12 Urine Nitrite NEGATIVE (NEGATIVE) 08/05/19 13:12 Urine Bilirubin NEGATIVE (NEGATIVE) 08/05/19 13:12 Urine Urobilinogen 0.2 (NORMAL) E.U./dL (NORMAL) 08/05/19 13:12 Ur Leukocyte Esterase NEGATIVE (NEGATIVE) 08/05/19 13:12 Urine RBC 0-5 /HPF (0-5) 08/05/19 13:12 Urine WBC 0-3 /HPF (0-3) 08/05/19 13:12 Ur Squamous Epith Cells RARE Squamous (<= Few) 08/05/19 13:12 Urine Bacteria Few /HPF (None Seen) 08/05/19 13:12 Ur Microscopic Review INDICATED 07/30/19 06:30 Urine Culture Comments NOT INDICATED 08/05/19 13:12 Stl Occult Blood (IFOB) Cancelled 07/30/19 05:12 Stool Leukocytes, Qual POSITIVE (Negative) 08/04/19 14:15 Urine Opiates Screen POSITIVE (NEGATIVE) H 07/30/19 12:25 Ur Oxycodone Screen NEGATIVE (NEGATIVE) 07/30/19 12:25 Urine Methadone Screen NEGATIVE (NEGATIVE) 07/30/19 12:25 Ur Propoxyphene Screen NEGATIVE (NEGATIVE) 07/30/19 12:25 Ur Barbiturates Screen NEGATIVE (NEGATIVE) 07/30/19 12:25 Ur Tricyclics Screen NEGATIVE (NEGATIVE) 07/30/19 12:25 Ur Phencyclidine Scrn NEGATIVE (NEGATIVE) 07/30/19 12:25 Ur Amphetamine Screen NEGATIVE (NEGATIVE) 07/30/19 12:25 U Methamphetamines Scrn NEGATIVE (NEGATIVE) 07/30/19 12:25 U Benzodiazepines Scrn NEGATIVE (NEGATIVE) 07/30/19 12:25 Urine Cocaine Screen NEGATIVE (NEGATIVE) 07/30/19 12:25 U Cannabinoids Screen NEGATIVE (NEGATIVE) 07/30/19 12:25 Ethyl Alcohol < 5.0 mg/dL 07/30/19 05:40 Slides for Path Review SEE SEPARATE REPORT 07/30/19 06:31 Blood Type B POSITIVE 07/30/19 06:35 Blood Type Recheck B POSITIVE 07/30/19 05:40 Antibody Screen NEGATIVE 07/30/19 06:35 Crossmatch IS Only See Detail 07/30/19 06:35 Sepsis Event Note (H) - Sepsis Criteria Sepsis Criteria: Recorded Heart Rate greater than 90 bpm, WBC count greater than 12,000 or less than 4000, Metabolic: lactate > 2 mmol/L, Hematologic: platelets < 100,000; INR > 1.5, or a PTT>60 seconds ABX Reporting Has patient been on IV antibiotics over the past 48 hours?: Yes Current Medications - Current Medications Current Medications: Active Medications Acetaminophen (Tylenol) 650 mg PO Q4HR PRN PRN Reason: Pain or Fever > 38C (100.4F) Last Admin: 08/04/19 20:47 Dose: 650 mg Albuterol () 2.5 mg INH RTQ4H PRN PRN Reason: Wheezing Albuterol/Ipratropium (Duoneb) 3 ml INH RTQID LOY Last Admin: 08/05/19 15:00 Dose: 3 ml Budesonide (Pulmicort) 0.5 mg INH RTBID [facility] Last Admin: 08/05/19 08:15 Dose: 0.5 mg Diphenoxylate HCl/Atropine (Lomotil) 1 tab PO Q2H PRN PRN Reason: Diarrhea Last Admin: 08/05/19 09:23 Dose: 1 tab Ferrous Gluconate (Fergon) 324 mg PO DAILYWM [facility] Last Admin: 08/05/19 09:15 Dose: 324 mg Folic Acid () 1 mg PO DAILY [facility] Last Admin: 08/05/19 09:14 Dose: 1 mg Formoterol Fumarate (Perforomist) 20 mcg INH RTBID [facility] Last Admin: 08/05/19 08:15 Dose: 20 mcg Sodium Chloride (Normal Saline 0.9%) 1,000 mls @ 83.333 mls/hr IV .Q12H [facility] Stop: 08/06/19 09:59 Last Admin: 08/05/19 10:41 Dose: 83.333 mls/hr Ceftriaxone Sodium 1 gm/ (Sodium Chloride) 100 mls @ 200 mls/hr IV DAILY [facility] Last Infusion: 08/05/19 12:15 Dose: Infused Magnesium Oxide (Mag Ox) 400 mg PO DAILYWM [facility] Last Admin: 08/05/19 09:14 Dose: 400 mg Nystatin (Mycostatin) 5 ml PO QID [facility] Last Admin: 08/05/19 14:03 Dose: 5 ml Pantoprazole Sodium (Protonix) 40 mg PO QDAC [facility] Last Admin: 08/05/19 06:20 Dose: 40 mg Phenol/Menthol (Chloraseptic) 2 sprays MM Q2HR PRN PRN Reason: Throat Pain Last Admin: 08/03/19 06:20 Dose: 2 sprays Quetiapine Fumarate (Seroquel) 25 mg PO QPM [facility] Last Admin: 08/04/19 20:48 Dose: 25 mg Saccharomyces Boulardii (Florastor) 250 mg PO BIDWM [facility] Last Admin: 08/05/19 14:03 Dose: 250 mg Sertraline HCl (Zoloft) 25 mg PO DAILY [facility] Last Admin: 08/05/19 09:14 Dose: 25 mg Sodium Chloride (Normal Saline Flush 0.9%) 10 ml IVP PRN PRN PRN Reason: NEEDED PER PROVIDER ORDERS Last Admin: 08/04/19 06:24 Dose: 10 ml Sodium Chloride (Normal Saline Flush 0.9%) 10 ml IVP 0100,0900,1700 [facility] Last Admin: 08/05/19 09:15 Dose: 10 ml Sodium Phosphate (K-Phos Neutral) 250 mg PO TIDWM [facility] Last Admin: 08/05/19 11:39 Dose: 250 mg Thiamine HCl (Vitamin B-1) 100 mg PO DAILY [facility] Last Admin: 08/05/19 09:15 Dose: 100 mg Throat Lozenges (Cepacol) 1 lozenge MM Q2HR PRN PRN Reason: Throat pain Last Admin: 08/04/19 06:33 Dose: 1 lozenge Amlodipine Besylate 5 mg PO BID 02/03/13 Atenolol [Tenormin] 50 mg PO DAILY 02/03/13 Bupropion HCl 75 mg PO BID 02/03/13 Calcium Carbonate/Vitamin D3 [Calcium 250+D Tablet] 2 each PO BID 02/03/13 Loratadine [Children's Clear-Atadine] 10 mg PO DAILY 02/03/13 Montelukast [Singulair] 10 mg PO DAILY 02/03/13 Niacin [Niaspan] 500 mg PO TID 02/03/13 Budesonide/Formoterol Fumarate [Symbicort 160-4.5 Mcg Inhaler] 2 puffs INH BID 07/30/19 Cyanocobalamin (Vitamin B-12) [Vitamin B-12] 1,000 mcg PO DAILY 07/30/19 Docusate Sodium [Dss] 250 mg PO BID 07/30/19 Sildenafil Citrate 100 mg PO PRN PRN 07/30/19 predniSONE [Deltasone] 20 mg PO DAILY 07/30/19 Acetaminophen [Tylenol] 650 mg PO DAILY 08/02/19 Albuterol 2.5 mg INH BID 08/02/19 Albuterol Sulfate [Proair Respiclick] 2 puffs IH QID PRN 08/02/19 Cholecalciferol (Vitamin D3) [Vitamin D3] 4,000 units PO DAILY 08/02/19 Fluticasone [Flonase] 2 sprays YULIA DAILY 08/02/19 Ipratropium [Atrovent] 0.5 mg INH BID 08/02/19 Loperamide HCl [Imodium A-D] 2 mg PO PRN PRN 08/02/19 Magnesium Oxide 1,260 mg PO QPM 08/02/19 Magnesium Oxide 840 mg PO DAILY 08/02/19 Tiotropium Br/Olodaterol HCl [Stiolto Respimat Inhal [place]] 2 puffs INH DAILY 08/02/19 Warfarin Sodium [Coumadin] 2 mg PO [place] 08/02/19 Warfarin Sodium [Coumadin] 3 mg PO TUTHFR 08/02/19
[2019-08-05 15:36] LABS: BASOPHILS % (AUTO) 0.2 %; EOSINOPHILS % (AUTO) 0.2 %; HGB - HEMOGLOBIN 10.5 g/dL (14.0-18.0); LYMPHOCYTES # (AUTO) 1.7 10^3/uL (1.5-3.5); LYMPHOCYTES % (AUTO) 11.2 %; MEAN CORPUSCULAR HEMOGLOBIN 33.9 pg (27.0-31.0); MEAN CORPUSCULAR HGB CONC 31.7 g/dL (32.0-36.0); MEAN CORPUSCULAR VOLUME 106.8 fL (80.0-94.0); MEAN PLATELET VOLUME 9.3 fL (7.4-11.4); MONOCYTES # (AUTO) 1.2 10^3/uL (0.0-1.0); NEUTROPHILS # (AUTO) 12.3 10^3/uL (1.5-6.6); NEUTROPHILS % (AUTO) 79.6 %; PLT - PLATELET COUNT 285 10^3/uL (130-450); RED CELL DISTRIBUTION WIDTH 18.4 % (12.0-15.0); WHITE BLOOD COUNT 15.5 x10^3/uL (4.8-10.8)
[2019-08-05] MEDS: ACETAMINOPHEN 325 MG TABLET PO PRN (17:15)
--- NOTE | 2019-08-05 17:39 | CONSULTATION NOTE ---
Palliative Care Consultation - Referral Referring Provider: Dr. Jaimie Mtz Time of Visit: 12-1300 Referral setting: Hospitalized patient Referral Reason: Goals of Care/COPD/FTT - Information Sources Records reviewed: Previous records reviewed History/Review of Systems obtained from: Patient Exam limitations: No limitations - History of Present Illness Brief History of Present Illness: This is a 74-year-old gentleman who is acutely admitted secondary to progressive COPD, failure to thrive, alcohol abuse, who was experiencing ongoing functional and some cognitive decline. He describes over the last several mo nths declining functional status, he attributes this to his COPD, poor nutritional intake, and recognizes now that he was in a state of severe decline. Patient does not have any insight today regarding his alcoholism, when asked about it, he is quite defensive, reporting he only drinks a couple Santiago Savannah's a day, and is unclear why everybody is focusing on it. When challenged with the fact he has abnormal electrolytes, his nutritional imbalance, he does attribute this not to his alcoholism but poor nutritional status and ability to be able to eat nutritionally. Patient does report several months of declining intake, early satiety, with his progressive COPD and dyspnea, unable to access appropriate nutrition, plus his reported history of diarrhea for 3 weeks. He has baseline difficulty with bowels since severe crush injury and removal of several "feet". He reports his decline has been fairly steady over the last several years, just learning to work with it. He was originally able to take care of himself and his house, but finding this more difficult with his increased difficulty with breathing. He reports that 6 months he had been a having to decrease his activity, and over the last 3 months not able to get out of the house. He had done many things on line, as well as had his sister providing support. He again reiterates he thought he would "just pull himself out of it". He perceives himself is somewhat of a Titan, he has not been scared he has had several brushes with , and several severe health crises. He reports he has been lenny he at "evading ", but not of avoiding accidents. Patient reports increasing complications over the the last several months, and most acutely over the last several weeks. He now in reflection, can acknowledge he was worsening, reports he had very little insight to this, and does understand he was close to an end-of-life event if he had waited much longer. Reports he let it go too far, that he was finally understanding the severity of his illness, and that is when he called 911 when he longer could take care of himself and was incontinent and sitting in his own filth. Patient reports he is feeling somewhat better, each day a little bit stronger, he reports his belief system was that if he just tried a little harder he would feel better the next day. He has not accessed medical care or followed up with his providers for several months, including monitoring his INR. When asked patient his current understanding of his illness, he does understand his COPD is progressive and likely to lead to a terminal event. This was his assumption as things worsened, that this was what was happening. He does understand currently, he is hit a bit of a complication, that they are looking for other sources of infection as his white count has been up. He does report though he feels like he is improving every day, his cough is more loose, he is breathing easier, and starting to build some endurance. He does understand he is not strong enough to go home safely, and is still aware he will be transition to SNF for support of rehab and increased support and getting stronger. Medical/Surgical History - Past Medical History Cardiovascular: reports: Hypertension, Deep vein thrombosis, Pulmonary embolism Respiratory: reports: COPD (sees pulmonology at [facility]), Pneumonia (History of.), Shortness of breath Neuro: Tremors Endocrine/Autoimmune: reports: None GI: reports: GERD, Chronic diarrhea (was severe after bowel resection in 1970's then slowed down and now can be with nml stool but occ diarrhea needs loperamide.) : reports: None HEENT: reports: None Psych: reports: Depression, Post traumatic stress disorder Musculoskeletal: reports: Osteoporosis Derm: reports: Rosacea MRSA Hx?: No Other Past Medical History: ETOH abuse, previous smoker - Past Surgical History General: reports: Appendectomy, Bowel surgery, Splenectomy HEENT: reports: Tonsil/Adenoidectomy - Substance History Use: Uses substance without health or social issues: Tobacco (Previous smoker, 39 year pack years), Alcohol (2 doubles of Santiago per day) Abuse: Recurrent use of substance despite neg consequences: Alcohol Tobacco Details: Cigarettes (Previously, quit 16 years ago) Social History - Living Situation Living arrangement: At home Living Situation: Alone Support System: Patient describes himself as somewhat of a loner, he is never been . He reports he is quite close with his family, that he does have a sister, who his D POA and everything is set up including his living will. He reports he does have 2 brothers, and has lost a brother to infection. He has lived on [facility] for 16 years, originally in [place], the last 4 years in [place]. 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 He reports his time in [place] was quite difficult for him, as well as he had longstanding PTSD and reports a [facility] stay for his psych issues. Family History - Family History Family History: Mother: (brother infection/mass), Cancer, Father: , Brother: Medications/Allergies - Medications Active Medication List: Active Medications Acetaminophen (Tylenol) 650 mg PO Q4HR PRN PRN Reason: Pain or Fever > 38C (100.4F) Last Admin: 08/05/19 17:15 Dose: 650 mg Albuterol () 2.5 mg INH RTQ4H PRN PRN Reason: Wheezing Albuterol/Ipratropium (Duoneb) 3 ml INH RTQID LOY Last Admin: 08/05/19 15:00 Dose: 3 ml Budesonide (Pulmicort) 0.5 mg INH RTBID LOY Last Admin: 08/05/19 08:15 Dose: 0.5 mg Diphenoxylate HCl/Atropine (Lomotil) 1 tab PO Q2H PRN PRN Reason: Diarrhea Last Admin: 08/05/19 09:23 Dose: 1 tab Ferrous Gluconate (Fergon) 324 mg PO DAILYWM LOY Last Admin: 08/05/19 09:15 Dose: 324 mg Folic Acid () 1 mg PO DAILY LOY Last Admin: 08/05/19 09:14 Dose: 1 mg Formoterol Fumarate (Perforomist) 20 mcg INH RTBID LOY Last Admin: 08/05/19 08:15 Dose: 20 mcg Sodium Chloride (Normal Saline 0.9%) 1,000 mls @ 83.333 mls/hr IV .Q12H LOY Stop: 08/06/19 09:59 Last Admin: 08/05/19 10:41 Dose: 83.333 mls/hr Ceftriaxone Sodium 1 gm/ (Sodium Chloride) 100 mls @ 200 mls/hr IV DAILY [facility] Last Infusion: 08/05/19 12:15 Dose: Infused Magnesium Oxide (Mag Ox) 400 mg PO DAILYWM [facility] Last Admin: 08/05/19 09:14 Dose: 400 mg Nystatin (Mycostatin) 5 ml PO QID [facility] Last Admin: 08/05/19 17:12 Dose: 5 ml Pantoprazole Sodium (Protonix) 40 mg PO QDAC [facility] Last Admin: 08/05/19 06:20 Dose: 40 mg Phenol/Menthol (Chloraseptic) 2 sprays MM Q2HR PRN PRN Reason: Throat Pain Last Admin: 08/03/19 06:20 Dose: 2 sprays Quetiapine Fumarate (Seroquel) 25 mg PO QPM [facility] Last Admin: 08/04/19 20:48 Dose: 25 mg Saccharomyces Boulardii (Florastor) 250 mg PO BIDWM [facility] Last Admin: 08/05/19 17:12 Dose: 250 mg Sertraline HCl (Zoloft) 25 mg PO DAILY [facility] Last Admin: 08/05/19 09:14 Dose: 25 mg Sodium Chloride (Normal Saline Flush 0.9%) 10 ml IVP PRN PRN PRN Reason: NEEDED PER PROVIDER ORDERS Last Admin: 08/04/19 06:24 Dose: 10 ml Sodium Chloride (Normal Saline Flush 0.9%) 10 ml IVP 0100,0900,1700 [facility] Last Admin: 08/05/19 17:12 Dose: Not Given Sodium Phosphate (K-Phos Neutral) 250 mg PO TIDWM [facility] Last Admin: 08/05/19 17:12 Dose: 250 mg Thiamine HCl (Vitamin B-1) 100 mg PO DAILY [facility] Last Admin: 08/05/19 09:15 Dose: 100 mg Throat Lozenges (Cepacol) 1 lozenge MM Q2HR PRN PRN Reason: Throat pain Last Admin: 08/04/19 06:33 Dose: 1 lozenge Amlodipine Besylate 5 mg PO BID 02/03/13 Atenolol [Tenormin] 50 mg PO DAILY 07/15/13 Bupropion HCl 75 mg PO BID 07/15/13 Calcium Carbonate/Vitamin D3 [Calcium 250+D Tablet] 2 each PO BID 02/03/13 Loratadine [Children's Clear-Atadine] 10 mg PO DAILY 02/03/13 Montelukast [Singulair] 10 mg PO DAILY 02/03/13 Niacin [Niaspan] 500 mg PO TID 02/03/13 Budesonide/Formoterol Fumarate [Symbicort 160-4.5 Mcg Inhaler] 2 puffs INH BID 07/30/19 Cyanocobalamin (Vitamin B-12) [Vitamin B-12] 1,000 mcg PO DAILY 07/30/19 Docusate Sodium [Dss] 250 mg PO BID 07/30/19 Sildenafil Citrate 100 mg PO PRN PRN 07/30/19 predniSONE [Deltasone] 20 mg PO DAILY 07/30/19 Acetaminophen [Tylenol] 650 mg PO DAILY 08/02/19 Albuterol 2.5 mg INH BID 08/02/19 Albuterol Sulfate [Proair Respiclick] 2 puffs IH QID PRN 08/02/19 Cholecalciferol (Vitamin D3) [Vitamin D3] 4,000 units PO DAILY 08/02/19 Fluticasone [Flonase] 2 sprays YULIA DAILY 08/02/19 Ipratropium [Atrovent] 0.5 mg INH BID 08/02/19 Loperamide HCl [Imodium A-D] 2 mg PO PRN PRN 08/02/19 Magnesium Oxide 1,260 mg PO QPM 08/02/19 Magnesium Oxide 840 mg PO DAILY 08/02/19 Tiotropium Br/Olodaterol HCl [Stiolto Respimat Inhal [place]] 2 puffs INH DAILY 08/02/19 Warfarin Sodium [Coumadin] 2 mg PO SUMOWESA 08/02/19 Warfarin Sodium [Coumadin] 3 mg PO TUTHFR 08/02/19 - Allergies Allergies/Adverse Reactions: Allergies Allergy/AdvReac Type Severity Reaction Status Date / Time No Known Drug Allergies Allergy Verified 07/30/19 05:12 Review of Systems - Constitutional Constitutional: reports: Fatigue, Weight loss. denies: Fever, Chills - Eyes Eyes: reports: Vision loss, Other (needs glasses to read/does not have them with him) - Ears, Nose & Throat Ears, Nose & Throat: reports: Hearing loss (mild) - Cardiovascular Cardiovascular: reports: Edema, Exertional dyspnea, Decr. exercise tolerance, Orthopnea - Respiratory Respiratory: reports: Cough, Sputum production, Wheezing, Orthopnea, SOB at rest, SOB with exertion - Gastrointestinal Gastrointestinal: reports: Diarrhea, Nausea, Good appetite. denies: Black stools, Reflux/heartburn - Genitourinary Genitourinary: reports: Frequency, Other (new + UTI) - Musculoskeletal Musculoskeletal: reports: Limited range of motion, Muscle weakness - Integumentary Integumentary: reports: Dryness - Neurological Neurological: reports: General weakness, Memory problems (mild STM) - Psychiatric Psychiatric: reports: Depression, Anxiety. denies: Suicidal - All Other Systems All Other Systems: reports: Reviewed and negative Physical Exam - Vital Signs Vital Signs: Vital Signs x48h Temp Pulse Pulse Resp BP Pulse Ox 08/05/19 15:33 36.5 C 115 H 18 119/73 96 08/05/19 15:00 111 H 20 - Physical Exam General Appearance: positive: Alert, Anxious Eyes Bilateral: positive: Normal inspection ENT: positive: No signs of dehydration Neck: positive: No JVD, Trachea midline Cardiovascular: positive: Regular rate & rhythm Respiratory: positive: No respiratory distress, Diminished throughout, Wheezes, Rhonchi, Other (moist cough) Abdomen: positive: Non-tender, Distended Skin: positive: Pallor, Dryness Extremities: positive: Pedal edema (Per patient new symptom; current with belkis wraps) Neurologic/Psychiatric: positive: Oriented x3, Mood/affect nml, Weakness Palliative Care - POLST Patient has POLST: No POLST Status: DNR Pain: No pain Tiredness/Fatigue: Severe (7-10) Drowsiness/Sedation: Mild (1-3) Nausea: None Anorexia: None, Weight loss Dyspnea: Severe (7-10) Depression: Moderate (4-6) Anxiety: Moderate (4-6) Feelings of wellbeing/Perceived Quality of Life: Fair, Acceptable, Improved, Comment (this is from beginning of hospitalization; overall has been deteriorating) Performance Status: Patient has had deteriorating functional status, less able to meet his ADL needs. Has not been able to cook for himself prior to hospitalization for zoe ral weeks, nor shop for himself for several months. Reports his limitations have been mostly his COPD, lower extremity weakness, had previously been driving and shopping, though less able to tolerate longer trips. 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 - Palliative Care Discussion: Patient reports has been having a steady decline, has had underlying COPD for several years. Reports at least 10 years of oxygen, 5 years on and off, steady for the last 5 years. Reports his breathlessness and dyspnea has becoming more more limiting, and has not been able to participate in things such as road trips for 5 or 6 years which were what brought him quality of life. [facility], unfortunately this is created a barrier, as patient's been unable to drive, is not accessed medical care or support. He reports recently he was reassigned to [facility], but has only met with Dr. Grace 1 time. Patient he also reports a history of PTSD, including a [facility] psych visit[facility]stay. He reports he is somewhat of a loner, is very close with his family, but his br other who a few years ago was his closest relationship. Reports he has not been , what brings him jeni is being on the road, this is not been accessible to him for several years. When asked what he hopes for, is to return to some level of function. He is hoping to be able to take care of himself, and return to his home setting. He does understand the goal the SNF would be for strengthening, and that we hope for the best, we did discuss if things were not to improve, what his resources were for increased help in the home. He reports he would need to be dependent on the [facility]. Patient feels like he has more life to give, but is quite realistic in the context of has chosen to be a DNA R. He reports he has taking care of his final affairs with his sister, it is all set up, as far as his will, and living will. He does feel like she would make decisions in his best interest, and is aware of his recent decline. Did introduce the POLST, particularly in transitioning to a SNF setting, would be good to have this in place. Patient unable to read secondary to not having his glasses. We did discuss the different choices on the form, at this point in time he is leaning towards DNA R/DNI and selective treatments. Will complete tomorrow, and bring some readers. He is anxious to get on with his care plan, does understand they are looking for other sources of infection, but is feeling better every day. Discussed in the context of his chronic and progressive illness, particularly in light of the complexities he has experienced as well as his decline, the role of palliative care and support. 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 He is hopeful for more time, given he has things to do, and things he would like to accomplish. Results - Lab Results Lab results reviewed: Yes Fish Bones: 08/05/19 15:32 08/05/19 08:40 Lab and Imaging Results: Lab Results x24hrs 08/05/19 08/05/19 08/05/19 Range/Units 15:32 13:12 08:40 WBC 15.5 H (4.8-10.8) x10^3/uL RBC 3.10 L (4.70-6.10) 10^6/uL Hgb 10.5 L (14.0-18.0) g/dL Hct 33.1 L (42.0-52.0) % MCV 106.8 H (80.0-94.0) fL MCH 33.9 H (27.0-31.0) pg MCHC 31.7 L (32.0-36.0) g/dL RDW 18.4 H (12.0-15.0) % Plt Count 285 (130-450) 10^3/uL MPV 9.3 (7.4-11.4) fL Neut # (Auto) 12.3 H Lymph # (Auto) 1.7 Jessamine # (Auto) 1.2 H Eos # (Auto) 0.0 Baso # (Auto) 0.0 Absolute Nucleated RBC 0.00 x10^3/uL Total Counted Band Neuts % (Manual) (0 - 10) % Abnorm Lymph % (Manual) % Nucleated RBC % 0.0 /100WBC Neutrophils # (Manual) (1.5-6.6) 10^3/uL Lymphocytes # (Manual) (1.5-3.5) 10^3/uL Monocytes # (Manual) (0.0-1.0) 10^3/uL Eosinophils # (Manual) (0-0.7) 10^3/uL Basophils # (Manual) (0-0.1) 10^3/uL Nucleated RBCs % Differential Comment Manual Slide Review Platelet Estimate (NORMAL) Platelet Morphology (NORMAL) RBC Morph Micro Appear (NORMAL) Sodium 141 (135-145) mmol/L Potassium 4.0 (3.5-5.0) mmol/L Chloride 106 (101-111) mmol/L Carbon Dioxide 26 (21-32) mmol/L Anion Gap 9.0 (6-13) BUN 13 (6-20) mg/dL Creatinine 0.7 (0.6-1.2) mg/dL Estimated GFR (MDRD) 111 (>89) Glucose 111 H (70-100) mg/dL Calcium 8.7 (8.5-10.3) mg/dL Phosphorus 2.4 L (2.5-4.6) mg/dL Magnesium 1.4 L (1.7-2.8) mg/dL Total Bilirubin 0.9 (0.2-1.0) mg/dL AST 51 H (10-42) IU/L ALT 81 H (10-60) IU/L Alkaline Phosphatase 66 (42-121) IU/L Total Protein 5.6 L (6.7-8.2) g/dL Albumin 2.7 L (3.2-5.5) g/dL Globulin 2.9 (2.1-4.2) g/dL Albumin/Globulin Ratio 0.9 L (1.0-2.2) Urine Color YELLOW Urine Clarity HAZY (CLEAR) Urine pH 5.5 (5.0-7.5) PH Ur Specific [place] >=1.030 H (1.002-1.030) Urine Protein NEGATIVE (NEGATIVE) mg/dL Urine Glucose (UA) NEGATIVE (NEGATIVE) mg/dL Urine Ketones NEGATIVE (NEGATIVE) mg/dL Urine Occult Blood NEGATIVE (NEGATIVE) Urine Nitrite NEGATIVE (NEGATIVE) Urine Bilirubin NEGATIVE (NEGATIVE) Urine Urobilinogen 0.2 (NORMAL) (NORMAL) E.U./dL Ur Leukocyte Esterase NEGATIVE (NEGATIVE) Urine RBC 0-5 (0-5) /HPF Urine WBC 0-3 (0-3) /HPF Ur Squamous Epith Cells RARE Squamous (<= Few) Urine Bacteria Few (None Seen) /HPF Urine Culture Comments NOT INDICATED 08/05/19 Range/Units 08:40 WBC 29.8 H (4.8-10.8) x10^3/uL RBC 3.56 L (4.70-6.10) 10^6/uL Hgb 12.0 L (14.0-18.0) g/dL Hct 37.4 L (42.0-52.0) % MCV 105.1 H (80.0-94.0) fL MCH 33.7 H (27.0-31.0) pg MCHC 32.1 (32.0-36.0) g/dL RDW 19.4 H (12.0-15.0) % Plt Count 669 H (130-450) 10^3/uL MPV 9.5 (7.4-11.4) fL Neut # (Auto) Not Reportable Lymph # (Auto) Not Reportable [place] # (Auto) Not Reportable Eos # (Auto) Not Reportable Baso # (Auto) Not Reportable Absolute Nucleated RBC x10^3/uL Total Counted 100 Band Neuts % (Manual) 0 (0 - 10) % Abnorm Lymph % (Manual) 0 % Nucleated RBC % /100WBC Neutrophils # (Manual) 24.7 H (1.5-6.6) 10^3/uL Lymphocytes # (Manual) 3.0 (1.5-3.5) 10^3/uL Monocytes # (Manual) 1.2 H (0.0-1.0) 10^3/uL Eosinophils # (Manual) 0.0 (0-0.7) 10^3/uL Basophils # (Manual) 0.9 H (0-0.1) 10^3/uL Nucleated RBCs 1 % Differential Comment MANUAL DIFFERENTIAL Manual Slide Review Indicated Platelet Estimate INCREASED (>450,000) (NORMAL) Platelet Morphology PLATELET C (NORMAL) RBC Morph Micro Appear OVALOCYTES (NORMAL) Sodium (135-145) mmol/L Potassium (3.5-5.0) mmol/L Chloride (101-111) mmol/L Carbon Dioxide (21-32) mmol/L Anion Gap (6-13) BUN (6-20) mg/dL Creatinine (0.6-1.2) mg/dL Estimated GFR (MDRD) (>89) Glucose (70-100) mg/dL Calcium (8.5-10.3) mg/dL Phosphorus (2.5-4.6) mg/dL Magnesium (1.7-2.8) mg/dL Total Bilirubin (0.2-1.0) mg/dL AST (10-42) IU/L ALT (10-60) IU/L Alkaline Phosphatase (42-121) IU/L Total Protein (6.7-8.2) g/dL Albumin (3.2-5.5) g/dL Globulin (2.1-4.2) g/dL Albumin/Globulin Ratio (1.0-2.2) Urine Color Urine Clarity (CLEAR) Urine pH (5.0-7.5) PH Ur Specific [place] (1.002-1.030) Urine Protein (NEGATIVE) mg/dL Urine Glucose (UA) (NEGATIVE) mg/dL Urine Ketones (NEGATIVE) mg/dL Urine Occult Blood (NEGATIVE) Urine Nitrite (NEGATIVE) Urine Bilirubin (NEGATIVE) Urine Urobilinogen (NORMAL) E.U./dL Ur Leukocyte Esterase (NEGATIVE) Urine RBC (0-5) /HPF Urine WBC (0-3) /HPF Ur Squamous Epith Cells (<= Few) Urine Bacteria (None Seen) /HPF Urine Culture Comments Impression and Recommendations - Palliative Care Impression: This is a 74-year-old gentleman who is admitted acutely with acute anemia, dehydration, diarrhea, supratherapeutic INR, severe protein calorie malnutrition, adult failure to thrive syndrome, and progressive COPD. Patient is continued to improve, had stabilized and was ready for discharge, now presents with elevated white count, and UTI. Patient has improved functionally, with increased ability to ambulate, decreased dyspnea, and more able to participate cognitively in conversations. Palliative care meeting with patient to build rapport, visit goals of care, and anticipatory guidance. Recommendations/Counseling Done: 1. COPD. Patient does present with significant dyspnea with any activity, this is multifactorial including deconditioning, and presenting with anemia. Patient needs frequent rest periods, has moist cough, does feel like things are improving. 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 Patient is willing to revisit for pulmonary rehab, though unclear if [facility] will pay. 2. Adult failure to thrive. Patient has had progressive weight loss, presents with protien-calorie malnutrition, but given concerns for access to food, and ability to care for self, has continued to decline. Patient has complications related to his crush injury, reports poor absorption and history of early satiety. Patient does not feel his alcohol use has contributed to this, counseling provided regarding can contribute to nutritional deficiencies and imbalances. 3. Alcohol abuse. Patient today, feels like this is a nonissue. When asked if possibly contributed to some of his decline, and possibly medicating himself for his PTSD/anxiety he has very little insight into this. He does acknowledge he is received counseling while here in the hospital, but is feeling like it has gotten "too much attention". Counseling provided regarding the role of social isolation and contribution to depression and poor health outcomes, acknowledges would be helpful to have regular help and check ins. 4. Depression. Patient denies suicidality, does report pulling back and increasing isolation, though attributes this to his underlying personality and choices through life. He was quite close to his brother, who several years ago. He has been started on sertraline and quetiapine, would recommend continued titration to maximum effect over the next several weeks to months. 5. Advanced care planning. 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 Patient attributes this some to how he has comparison from past experiences of "evaluating ". Patient is quite realistic though and perceives himself as having a progressive disease, though feels he has much left to live. Patient reports he has advanced care planning done as far as Nitesh SRIVASTAVA, and feels sister would be able to make decisions in the context of what his health beliefs and values are. We did discuss in transitioning to new settings, and particularly to the home setting, the role of the POLST. Initiated conversations and counseling regarding this, will obtain reading glasses, and complete at tomorrow's visit. We will get permission to follow-up with sister regarding concerns or questions at that time. Time Spent: 60 minutes with greater than 50% of this done in counseling regarding goals of care, anticipatory guidance regarding FTT/COPD, coordination of care with hospitalist and social work department.
[2019-08-05] MEDS: QUEtiapine 25 MG TABLET PO SCH (21:23)
[2019-08-06] MEDS: SODIUM CHLORIDE 0.9% 1,000 ML IV SCH ×3 (00:30→14:37)
[2019-08-06] MEDS: SODIUM CHLORIDE FLUSH 0.9% 10 ML SYRINGE IVP SCH ×3 (01:45→16:54)
[2019-08-06] MEDS: PANTOPRAZOLE 40 MG TABLET PO SCH (05:41)
[2019-08-06 05:48] LABS: BASOPHILS % (AUTO) 0.2 %; CALCIUM 7.9 mg/dL (8.5-10.3); CREATININE 0.6 mg/dL (0.6-1.2); EOSINOPHILS # (AUTO) 0.2 10^3/uL (0.0-0.7); EOSINOPHILS % (AUTO) 1.5 %; LYMPHOCYTES # (AUTO) 1.3 10^3/uL (1.5-3.5); LYMPHOCYTES % (AUTO) 11.9 %; MAGNESIUM 1.7 mg/dL (1.7-2.8); MEAN CORPUSCULAR HEMOGLOBIN 33.6 pg (27.0-31.0); MEAN CORPUSCULAR HGB CONC 31.4 g/dL (32.0-36.0); MEAN CORPUSCULAR VOLUME 107.1 fL (80.0-94.0); MEAN PLATELET VOLUME 9.3 fL (7.4-11.4); MONOCYTES # (AUTO) 0.8 10^3/uL (0.0-1.0); MONOCYTES % (AUTO) 7.4 %; NEUTROPHILS # (AUTO) 8.7 10^3/uL (1.5-6.6); NEUTROPHILS % (AUTO) 78.6 %; PHOSPHORUS 2.7 mg/dL (2.5-4.6); PLT - PLATELET COUNT 246 10^3/uL (130-450); RED BLOOD COUNT 2.68 10^6/uL (4.70-6.10); RED CELL DISTRIBUTION WIDTH 17.9 % (12.0-15.0); WHITE BLOOD COUNT 11.1 x10^3/uL (4.8-10.8)
[2019-08-06] MEDS: MAGNESIUM OXIDE 400 MG TABLET PO SCH (09:33)
[2019-08-06] MEDS: NEUTRA-PHOS 250 MG TABLET PO SCH ×3 (09:33→16:54)
[2019-08-06] MEDS: FOLIC ACID 1 MG TABLET PO SCH (09:33)
[2019-08-06] MEDS: SERTRALINE 25 MG TABLET PO SCH (09:33)
[2019-08-06] MEDS: NYSTATIN 500000 UNITS/5 ML UDC PO SCH ×4 (09:33→20:31)
[2019-08-06] MEDS: THIAMINE 100 MG TABLET PO SCH (09:33)
[2019-08-06] MEDS: VANCOMYCIN 125 MG CAPSULE PO SCH ×4 (09:33→20:31)
[2019-08-06] MEDS: cefTRIAXone 1 GM in SODIUM CHLORIDE 0.9% MINIBAG 100 ML IV SCH (09:34)
[2019-08-06] MEDS: FERROUS GLUCONATE 324 MG TABLET PO SCH (09:34)
[2019-08-06] MEDS: IPRATROPIUM/ALBUTEROL 3 ML NEB INH SCH ×5 (09:50→21:37)
[2019-08-06] MEDS: SACCHAROMYCES BOULARDII 250 MG CAPSULE PO SCH ×2 (10:25→16:54)
[2019-08-06] MEDS: FORMOTEROL FUMARATE NEB 20 MCG/2 ML INH SCH ×2 (10:44→21:34)
[2019-08-06] MEDS: BUDESONIDE 0.5 MG/2 ML NEB INH SCH ×2 (10:44→21:30)
--- NOTE | 2019-08-06 13:30 | PROVIDER PROGRESS NOTE ---
Assessment/Plan - Problem List (1) C. difficile diarrhea Assessment/Plan: 08/06 Pt report he still had diarrhea today. C.Diff test is positive. PO of Vancomycin IVF of NS lab monitor (2) UTI (urinary tract infection) Assessment/Plan: 08/06 pt's WBC is down to 11, closely normal. UA culture reveal pt has two positive bacterial in urine: Ecoli and Klebsiella Oxytoca, both sensitive to Rocephin. blood culture is negative for bactermia. continue Rocephin with probiotics. Pt has significant elevated WBC to 29. UA culture 08/04/2019 reveals two positive organism negative smita. start on Rocephin, sensitive study is pending. lab and vital monitor (3) chronic obstructive pulmonary disease exacerbation Impression: 08/06 as his baseline Continue DuoNeb at a fixed schedule, albuterol as needed, budesonide, Perforomist. he agrees to register with cardiopulmonary rehab. STABLE. pt report he took oxygen for over ten years, pt has hx of severe COPD. Now he has 98% sat on 2-3 liter of O2 Continue DuoNeb at a fixed schedule, albuterol as needed, budesonide, Perforomist. stop steroids. [facility], he agrees to register with cardiopulmonary rehab. (4) Alcohol abuse Impression: Resulting in macrocytic anemia, continue on B12 and folate and thiamine at this time. (5) Leukocytosis Impression: 08/06 significant improved, today WBC is 11 continue Rocephin to treat UTI significant elevated WBC even steroid is stopped. treat with antibiotics for UTI order blood culture (6) Adult failure to thrive syndrome Impression: combination of his COPD, alcohol abuse, and lack of capacity to make her own food and weakness plan: Physical therapy will continue to work with him. And plan is for [facility] for improving his deconditioning, so that he can return to independent living in his home. (7) Severe protein-calorie malnutrition Impression: stable and improved. pt eat 100% of his meal - Current Meds Current Meds: Current Medications Generic Name Dose Route Start Last Admin Trade Name Freq PRN Reason Stop Dose Admin Acetaminophen 650 mg 08/02/19 18:24 08/05/19 17:15 Tylenol PO 650 mg Q4HR PRN Administration Pain or Fever > 38C (100.4F) Albuterol/Ipratropium 3 ml 07/30/19 11:00 08/06/19 10:25 Duoneb INH 3 ml RTQID LOY Administration Budesonide 0.5 mg 07/30/19 11:00 08/06/19 10:44 Pulmicort INH 0.5 mg RTBID LOY Administration Ferrous Gluconate 324 mg 08/01/19 15:00 08/06/19 09:34 Fergon PO 324 mg DAILYWM LOY Administration Folic Acid 1 mg 07/31/19 13:00 08/06/19 09:33 PO 1 mg DAILY LOY Administration Formoterol Fumarate 20 mcg 07/30/19 11:00 08/06/19 10:44 Perforomist INH 20 mcg RTBID LOY Administration Ceftriaxone Sodium 1 gm/ 100 mls @ 200 mls/hr 08/05/19 11:00 08/06/19 10:04 Sodium Chloride IV Infused DAILY LOY Infusion Magnesium Oxide 400 mg 08/02/19 08:00 08/06/19 09:33 Mag Ox PO 400 mg DAILYWM LOY Administration Nystatin 5 ml 07/30/19 19:00 08/06/19 09:33 Mycostatin PO 5 ml QID LOY Administration Pantoprazole Sodium 40 mg 07/30/19 07:00 08/06/19 05:41 Protonix PO 40 mg QDAC LOY Administration Phenol/Menthol 2 sprays 08/01/19 01:49 08/03/19 06:20 Chloraseptic MM 2 sprays Q2HR PRN Administration Throat Pain Quetiapine Fumarate 25 mg 08/01/19 21:00 08/05/19 21:23 Seroquel PO 25 mg QPM LOY Administration Saccharomyces Boulardii 250 mg 08/05/19 10:37 08/06/19 10:25 Florastor PO 250 mg BIDWM LOY Administration Sertraline HCl 25 mg 08/02/19 09:00 08/06/19 09:33 Zoloft PO 25 mg DAILY LOY Administration Sodium Chloride 10 ml 07/30/19 06:56 08/04/19 06:24 Normal Saline Flush 0.9% IVP 10 ml PRN PRN Administration NEEDED PER PROVIDER ORDERS Sodium Chloride 10 ml 07/30/19 09:00 08/06/19 09:34 Normal Saline Flush 0.9% IVP 10 ml 0100,0900,1700 LYO Administration Sodium Phosphate 250 mg 08/01/19 13:00 08/06/19 09:33 K-Phos Neutral PO 250 mg TIDWM LOY Administration Thiamine HCl 100 mg 07/31/19 13:00 08/06/19 09:33 Vitamin B-1 PO 100 mg DAILY LOY Administration Throat Lozenges 1 lozenge 07/30/19 16:58 08/04/19 06:33 Cepacol MM 1 lozenge Q2HR PRN Administration Throat pain Vancomycin HCl 125 mg 08/06/19 09:00 08/06/19 09:33 Vancocin PO 125 mg QID LOY Administration - Lab Result Fish Bone Diagrams: 08/06/19 05:15 08/06/19 05:15 - Additional Planning My Orders: My Active Orders 08/06/19 [facility] [Pulmonary Wellness Consult] [LIFECTR] Routine 08/06/19 11:24 Obtain RT Consult as needed [RC] .once 08/06/19 14:00 Sodium Chloride 0.9% [Normal Saline 0.9%] 1,000 ml IV 75 mls/hr 08/07/19 05:00 BMP - BASIC METABOLIC PANEL [CHEM] DAILYLAB CBC - COMP BLD CT W/AUTO DIFF [HEME] DAILYLAB MAGNESIUM [CHEM] DAILYLAB PHOSPHORUS [CHEM] DAILYLAB 08/08/19 05:00 BMP - BASIC METABOLIC PANEL [CHEM] DAILYLAB CBC - COMP BLD CT W/AUTO DIFF [HEME] DAILYLAB MAGNESIUM [CHEM] DAILYLAB PHOSPHORUS [CHEM] DAILYLAB 08/09/19 05:00 BMP - BASIC METABOLIC PANEL [CHEM] DAILYLAB CBC - COMP BLD CT W/AUTO DIFF [HEME] DAILYLAB MAGNESIUM [CHEM] DAILYLAB PHOSPHORUS [CHEM] DAILYLAB 08/10/19 05:00 BMP - BASIC METABOLIC PANEL [CHEM] DAILYLAB CBC - COMP BLD CT W/AUTO DIFF [HEME] DAILYLAB Subjective - Subjective Patient Reports: Feeling Better Objective Vital Signs: Vital Signs - 24 hr 08/05/19 08/05/19 08/05/19 15:00 15:33 19:44 Temperature 36.5 C Heart Rate 111 H 111 H Heart Rate [ 115 H Brachial] Respiratory 20 18 20 Rate Blood Pressure 119/73 [Right Brachial artery] O2 Saturation 96 08/06/19 08/06/19 00:15 08:10 Temperature 36.3 C L 36.3 C L Heart Rate Heart Rate [ 106 H 111 H Brachial] Respiratory 18 20 Rate Blood Pressure 131/84 H 144/78 H [Right Brachial artery] O2 Saturation 93 92 Oxygen O2 Source Nasal cannula Oxygen Flow Rate 2 I&O (Last 24 Hrs): Intake and Output Totals x24h 08/04/19 08/05/19 08/06/19 23:59 23:59 23:59 Intake Total 1426 2965 2523.329 Output Total 1100 1235 1200 Balance 326 1730 1323.329 General: Alert, Oriented x3, No acute distress HEENT: Atraumatic Neck: Supple Lymphatic: no adenopathy Neuro: Alert, Non Focal, Oriented Times 3 Cardiovascular: Regular rate, Normal S1, Normal S2 Respiratory: Chest non-tender, Other (diminished lung sound bilaterally) Abdomen: Normal bowel sounds, Soft Extremities: No edema, Normal pulses - Results Results: Laboratory Results WBC 11.1 x10^3/uL (4.8-10.8) H 08/06/19 05:15 RBC 2.68 10^6/uL (4.70-6.10) L 08/06/19 05:15 Hgb 9.0 g/dL (14.0-18.0) L 08/06/19 05:15 Hct 28.7 % (42.0-52.0) L 08/06/19 05:15 MCV 107.1 fL (80.0-94.0) H 08/06/19 05:15 MCH 33.6 pg (27.0-31.0) H 08/06/19 05:15 MCHC 31.4 g/dL (32.0-36.0) L 08/06/19 05:15 RDW 17.9 % (12.0-15.0) H 08/06/19 05:15 Plt Count 246 10^3/uL (130-450) 08/06/19 05:15 MPV 9.3 fL (7.4-11.4) 08/06/19 05:15 Reticulocyte % (Auto) 13.09 % (0.5-2.3) H 07/30/19 05:40 Neut # (Auto) 8.7 10^3/uL (1.5-6.6) H 08/06/19 05:15 Lymph # (Auto) 1.3 10^3/uL (1.5-3.5) L 08/06/19 05:15 [place] # (Auto) 0.8 10^3/uL (0.0-1.0) 08/06/19 05:15 Eos # (Auto) 0.2 10^3/uL (0.0-0.7) 08/06/19 05:15 Baso # (Auto) 0.0 10^3/uL (0.0-0.1) 08/06/19 05:15 Absolute Nucleated RBC 0.00 x10^3/uL 08/06/19 05:15 Total Counted 100 08/05/19 08:40 Band Neuts % (Manual) 0 % (0-10) 08/05/19 08:40 Abnorm Lymph % (Manual) 0 % 08/05/19 08:40 Myelocytes % 1 % (-0) H 07/30/19 05:40 Nucleated RBC % 0.0 /100WBC 08/06/19 05:15 Neutrophils # (Manual) 24.7 10^3/uL (1.5-6.6) H 08/05/19 08:40 Lymphocytes # (Manual) 3.0 10^3/uL (1.5-3.5) 08/05/19 08:40 Monocytes # (Manual) 1.2 10^3/uL (0.0-1.0) H 08/05/19 08:40 Eosinophils # (Manual) 0.0 10^3/uL (0-0.7) 08/05/19 08:40 Basophils # (Manual) 0.9 10^3/uL (0-0.1) H 08/05/19 08:40 Nucleated RBCs 1 % 08/05/19 08:40 Differential Comment MANUAL DIFFERENTIAL 08/05/19 08:40 Manual Slide Review Indicated 08/05/19 08:40 WBC Morphology NORMAL APPEARANCE (NORMAL) 07/31/19 05:40 Platelet Estimate INCREASED (>450,000) (NORMAL) 08/05/19 08:40 Platelet Morphology PLATELET C (NORMAL) 08/05/19 08:40 RBC Morph Micro Appear 2+ ANISOCYTOSIS (NORMAL) 1+ POLYCHROMASIA (NORMAL) 07/31/19 05:40 RBC Morph Micro Appear 1+ ANISOCYTOSIS (NORMAL) 1+ HYPOCHROMASIA (NORMAL) 1+ POLYCHROMASIA (NORMAL) 1+ OVALOCYTES (NORMAL) 08/01/19 04:35 RBC Morph Micro Appear 1+ ANISOCYTOSIS (NORMAL) 1+ HYPOCHROMASIA (NORMAL) 1+ POLYCHROMASIA (NORMAL) 1+ OVALOCYTES (NORMAL) 08/01/19 04:35 RBC Morph Micro Appear 1+ ANISOCYTOSIS (NORMAL) 1+ HYPOCHROMASIA (NORMAL) 1+ POLYCHROMASIA (NORMAL) 1+ OVALOCYTES (NORMAL) 08/01/19 04:35 RBC Morph Micro Appear 1+ ANISOCYTOSIS (NORMAL) 1+ HYPOCHROMASIA (NORMAL) 1+ POLYCHROMASIA (NORMAL) 1+ OVALOCYTES (NORMAL) 08/01/19 04:35 RBC Morph Micro Appear 1+ ANISOCYTOSIS (NORMAL) 1+ MACROCYTOSIS (NORMAL) 1+ HYPOCHROMASIA (NORMAL) 1+ POLYCHROMASIA (NORMAL) 1+ OVALOCYTES (NORMAL) 08/02/19 05:16 RBC Morph Micro Appear 1+ ANISOCYTOSIS (NORMAL) 1+ MACROCYTOSIS (NORMAL) 1+ HYPOCHROMASIA (NORMAL) 1+ POLYCHROMASIA (NORMAL) 1+ OVALOCYTES (NORMAL) 08/02/19 05:16 RBC Morph Micro Appear 1+ ANISOCYTOSIS (NORMAL) 1+ MACROCYTOSIS (NORMAL) 1+ HYPOCHROMASIA (NORMAL) 1+ POLYCHROMASIA (NORMAL) 1+ OVALOCYTES (NORMAL) 08/02/19 05:16 RBC Morph Micro Appear 1+ ANISOCYTOSIS (NORMAL) 1+ MACROCYTOSIS (NORMAL) 1+ HYPOCHROMASIA (NORMAL) 1+ POLYCHROMASIA (NORMAL) 1+ OVALOCYTES (NORMAL) 08/02/19 05:16 RBC Morph Micro Appear 1+ ANISOCYTOSIS (NORMAL) 1+ MACROCYTOSIS (NORMAL) 1+ HYPOCHROMASIA (NORMAL) 1+ POLYCHROMASIA (NORMAL) 1+ OVALOCYTES (NORMAL) 08/02/19 05:16 RBC Morph Micro Appear 1+ ANISOCYTOSIS (NORMAL) 1+ MACROCYTOSIS (NORMAL) 1+ HYPOCHROMASIA (NORMAL) 1+ POLYCHROMASIA (NORMAL) 1+ OVALOCYTES (NORMAL) 08/03/19 05:40 RBC Morph Micro Appear 1+ ANISOCYTOSIS (NORMAL) 1+ MACROCYTOSIS (NORMAL) 1+ HYPOCHROMASIA (NORMAL) 1+ POLYCHROMASIA (NORMAL) 1+ OVALOCYTES (NORMAL) 08/03/19 05:40 RBC Morph Micro Appear 1+ ANISOCYTOSIS (NORMAL) 1+ MACROCYTOSIS (NORMAL) 1+ HYPOCHROMASIA (NORMAL) 1+ POLYCHROMASIA (NORMAL) 1+ OVALOCYTES (NORMAL) 08/03/19 05:40 RBC Morph Micro Appear 1+ ANISOCYTOSIS (NORMAL) 1+ MACROCYTOSIS (NORMAL) 1+ HYPOCHROMASIA (NORMAL) 1+ POLYCHROMASIA (NORMAL) 1+ OVALOCYTES (NORMAL) 08/03/19 05:40 RBC Morph Micro Appear 1+ ANISOCYTOSIS (NORMAL) 1+ MACROCYTOSIS (NORMAL) 1+ HYPOCHROMASIA (NORMAL) 1+ POLYCHROMASIA (NORMAL) 1+ OVALOCYTES (NORMAL) 08/03/19 05:40 RBC Morph Micro Appear 1+ ANISOCYTOSIS (NORMAL) 1+ MACROCYTOSIS (NORMAL) 1+ POLYCHROMASIA (NORMAL) OVALOCYTES (NORMAL) 08/05/19 08:40 RBC Morph Micro Appear 1+ ANISOCYTOSIS (NORMAL) 1+ MACROCYTOSIS (NORMAL) 1+ POLYCHROMASIA (NORMAL) OVALOCYTES (NORMAL) 08/05/19 08:40 RBC Morph Micro Appear 1+ ANISOCYTOSIS (NORMAL) 1+ MACROCYTOSIS (NORMAL) 1+ POLYCHROMASIA (NORMAL) OVALOCYTES (NORMAL) 08/05/19 08:40 RBC Morph Micro Appear 1+ ANISOCYTOSIS (NORMAL) 1+ MACROCYTOSIS (NORMAL) 1+ POLYCHROMASIA (NORMAL) OVALOCYTES (NORMAL) 08/05/19 08:40 Absolute Retic 0.207 10^6/uL (0.020-0.110) H 07/30/19 05:40 Hematology Spec Commnt 0540 07/30/19 06:31 PT 9.5 secs (9.9-12.6) L 08/04/19 05:30 INR 0.8 (0.8-1.2) 08/04/19 05:30 Bld Gas Analysis Time 1604 07/31/19 16:04 Sample Site RIGHT RADIAL 07/31/19 16:04 ABG pH 7.47 (7.35-7.45) H 07/31/19 16:04 ABG pCO2 34 mmHg (34-45) 07/31/19 16:04 ABG pO2 66 mmHg (80-100) L 07/31/19 16:04 ABG HCO3 23.7 mmol/L (22.0-26.0) 07/31/19 16:04 ABG Total CO2 24.7 MMOL/L (21.0-29.0) 07/31/19 16:04 ABG O2 Saturation 94 % (94-98) 07/31/19 16:04 ABG Base Excess 0.4 mmol/L (-2.0-3.0) 07/31/19 16:04 Janes Test POSITIVE 07/31/19 16:04 O2 Delivery Device NASAL CANNULA 07/31/19 16:04 O2 Liters/Min 3.00 LPM 07/31/19 16:04 Sodium 141 mmol/L (135-145) 08/06/19 05:15 Potassium 3.9 mmol/L (3.5-5.0) 08/06/19 05:15 Chloride 108 mmol/L (101-111) 08/06/19 05:15 Carbon Dioxide 28 mmol/L (21-32) 08/06/19 05:15 Anion Gap 5.0 (6-13) L 08/06/19 05:15 BUN 12 mg/dL (6-20) 08/06/19 05:15 Creatinine 0.6 mg/dL (0.6-1.2) 08/06/19 05:15 Estimated GFR (MDRD) 132 (>89) 08/06/19 05:15 Glucose 98 mg/dL (70-100) 08/06/19 05:15 Lactic Acid 2.9 mmol/L (0.5-2.2) H 07/30/19 05:40 Calcium 7.9 mg/dL (8.5-10.3) L 08/06/19 05:15 Phosphorus 2.7 mg/dL (2.5-4.6) 08/06/19 05:15 Magnesium 1.7 mg/dL (1.7-2.8) 08/06/19 05:15 Iron 39 ug/dL (45-182) L 07/30/19 05:40 TIBC 319 ug/dL (250-450) 07/30/19 05:40 % Saturation 12 % (20-50) L 07/30/19 05:40 Transferrin 228 mg/dL (180-329) 07/30/19 05:40 Ferritin 66.0 ng/mL (23.9-336.2) 07/30/19 05:40 Total Bilirubin 0.9 mg/dL (0.2-1.0) 08/05/19 08:40 AST 51 IU/L (10-42) H 08/05/19 08:40 ALT 81 IU/L (10-60) H 08/05/19 08:40 Alkaline Phosphatase 66 IU/L (42-121) 08/05/19 08:40 Lactate Dehydrogenase 198 IU/L (91-225) 07/30/19 05:40 B-Natriuretic Peptide 177 pg/mL (5-100) H 07/31/19 05:40 Total Protein 5.6 g/dL (6.7-8.2) L 08/05/19 08:40 Albumin 2.7 g/dL (3.2-5.5) L 08/05/19 08:40 Globulin 2.9 g/dL (2.1-4.2) 08/05/19 08:40 Albumin/Globulin Ratio 0.9 (1.0-2.2) L 08/05/19 08:40 Lipase 37 U/L (22-51) 07/30/19 05:40 Vitamin B12 258 pg/mL (180-914) 07/30/19 05:40 Folate 12.40 ng/mL (5.90 - >24.8) 07/30/19 05:40 Urine Color YELLOW 08/05/19 13:12 Urine Clarity HAZY (CLEAR) 08/05/19 13:12 Urine pH 5.5 PH (5.0-7.5) 08/05/19 13:12 Ur Specific [place] >=1.030 (1.002-1.030) H 08/05/19 13:12 Urine Protein NEGATIVE mg/dL (NEGATIVE) 08/05/19 13:12 Urine Glucose (UA) NEGATIVE mg/dL (NEGATIVE) 08/05/19 13:12 Urine Ketones NEGATIVE mg/dL (NEGATIVE) 08/05/19 13:12 Urine Occult Blood NEGATIVE (NEGATIVE) 08/05/19 13:12 Urine Nitrite NEGATIVE (NEGATIVE) 08/05/19 13:12 Urine Bilirubin NEGATIVE (NEGATIVE) 08/05/19 13:12 Urine Urobilinogen 0.2 (NORMAL) E.U./dL (NORMAL) 08/05/19 13:12 Ur Leukocyte Esterase NEGATIVE (NEGATIVE) 08/05/19 13:12 Urine RBC 0-5 /HPF (0-5) 08/05/19 13:12 Urine WBC 0-3 /HPF (0-3) 08/05/19 13:12 Ur Squamous Epith Cells RARE Squamous (<= Few) 08/05/19 13:12 Urine Bacteria Few /HPF (None Seen) 08/05/19 13:12 Ur Microscopic Review INDICATED 07/30/19 06:30 Urine Culture Comments NOT INDICATED 08/05/19 13:12 Stl Occult Blood (IFOB) Cancelled 07/30/19 05:12 Stool Leukocytes, Qual POSITIVE (Negative) 08/04/19 14:15 Stl C. diff Tox B Gene POSITIVE (NEGATIVE) A* 08/06/19 03:30 Urine Opiates Screen POSITIVE (NEGATIVE) H 07/30/19 12:25 Ur Oxycodone Screen NEGATIVE (NEGATIVE) 07/30/19 12:25 Urine Methadone Screen NEGATIVE (NEGATIVE) 07/30/19 12:25 Ur Propoxyphene Screen NEGATIVE (NEGATIVE) 07/30/19 12:25 Ur Barbiturates Screen NEGATIVE (NEGATIVE) 07/30/19 12:25 Ur Tricyclics Screen NEGATIVE (NEGATIVE) 07/30/19 12:25 Ur Phencyclidine Scrn NEGATIVE (NEGATIVE) 07/30/19 12:25 Ur Amphetamine Screen NEGATIVE (NEGATIVE) 07/30/19 12:25 U Methamphetamines Scrn NEGATIVE (NEGATIVE) 07/30/19 12:25 U Benzodiazepines Scrn NEGATIVE (NEGATIVE) 07/30/19 12:25 Urine Cocaine Screen NEGATIVE (NEGATIVE) 07/30/19 12:25 U Cannabinoids Screen NEGATIVE (NEGATIVE) 07/30/19 12:25 Ethyl Alcohol < 5.0 mg/dL 07/30/19 05:40 Slides for Path Review SEE SEPARATE REPORT 07/30/19 06:31 Blood Type B POSITIVE 07/30/19 06:35 Blood Type Recheck B POSITIVE 07/30/19 05:40 Antibody Screen NEGATIVE 07/30/19 06:35 Crossmatch IS Only See Detail 07/30/19 06:35 Sepsis Event Note (H) - Sepsis Criteria Sepsis Criteria: Recorded Heart Rate greater than 90 bpm, WBC count greater than 12,000 or less than 4000, Metabolic: lactate > 2 mmol/L, Hematologic: platelets < 100,000; INR > 1.5, or a PTT>60 seconds ABX Reporting Has patient been on IV antibiotics over the past 48 hours?: Yes Current Medications - Current Medications Current Medications: Active Medications Acetaminophen (Tylenol) 650 mg PO Q4HR PRN PRN Reason: Pain or Fever > 38C (100.4F) Last Admin: 08/05/19 17:15 Dose: 650 mg Albuterol () 2.5 mg INH RTQ4H PRN PRN Reason: Wheezing Albuterol/Ipratropium (Duoneb) 3 ml INH RTQID [facility] Last Admin: 08/06/19 10:25 Dose: 3 ml Budesonide (Pulmicort) 0.5 mg INH RTBID [facility] Last Admin: 08/06/19 10:44 Dose: 0.5 mg Ferrous Gluconate (Fergon) 324 mg PO DAILYWM [facility] Last Admin: 08/06/19 09:34 Dose: 324 mg Folic Acid () 1 mg PO DAILY [facility] Last Admin: 08/06/19 09:33 Dose: 1 mg Formoterol Fumarate (Perforomist) 20 mcg INH RTBID [facility] Last Admin: 08/06/19 10:44 Dose: 20 mcg Ceftriaxone Sodium 1 gm/ (Sodium Chloride) 100 mls @ 200 mls/hr IV DAILY [facility] Last Infusion: 08/06/19 10:04 Dose: Infused Sodium Chloride (Normal Saline 0.9%) 1,000 mls @ 75 mls/hr IV .[id number] [facility] Magnesium Oxide (Mag Ox) 400 mg PO DAILYWM [facility] Last Admin: 08/06/19 09:33 Dose: 400 mg Nystatin (Mycostatin) 5 ml PO QID [facility] Last Admin: 08/06/19 09:33 Dose: 5 ml Pantoprazole Sodium (Protonix) 40 mg PO QDAC [facility] Last Admin: 08/06/19 05:41 Dose: 40 mg Phenol/Menthol (Chloraseptic) 2 sprays MM Q2HR PRN PRN Reason: Throat Pain Last Admin: 08/03/19 06:20 Dose: 2 sprays Quetiapine Fumarate (Seroquel) 25 mg PO QPM [facility] Last Admin: 08/05/19 21:23 Dose: 25 mg Saccharomyces Boulardii (Florastor) 250 mg PO BIDWM [facility] Last Admin: 08/06/19 10:25 Dose: 250 mg Sertraline HCl (Zoloft) 25 mg PO DAILY [facility] Last Admin: 08/06/19 09:33 Dose: 25 mg Sodium Chloride (Normal Saline Flush 0.9%) 10 ml IVP PRN PRN PRN Reason: NEEDED PER PROVIDER ORDERS Last Admin: 08/04/19 06:24 Dose: 10 ml Sodium Chloride (Normal Saline Flush 0.9%) 10 ml IVP 0100,0900,1700 [facility] Last Admin: 08/06/19 09:34 Dose: 10 ml Sodium Phosphate (K-Phos Neutral) 250 mg PO TIDWM [facility] Last Admin: 08/06/19 09:33 Dose: 250 mg Thiamine HCl (Vitamin B-1) 100 mg PO DAILY [facility] Last Admin: 08/06/19 09:33 Dose: 100 mg Throat Lozenges (Cepacol) 1 lozenge MM Q2HR PRN PRN Reason: Throat pain Last Admin: 08/04/19 06:33 Dose: 1 lozenge Vancomycin HCl (Vancocin) 125 mg PO QID [facility] Last Admin: 08/06/19 09:33 Dose: 125 mg Amlodipine Besylate 5 mg PO BID 02/03/13 Atenolol [Tenormin] 50 mg PO DAILY 02/03/13 Bupropion HCl 75 mg PO BID 02/03/13 Calcium Carbonate/Vitamin D3 [Calcium 250+D Tablet] 2 each PO BID 02/03/13 Loratadine [Children's Clear-Atadine] 10 mg PO DAILY 02/03/13 Montelukast [Singulair] 10 mg PO DAILY 02/03/13 Niacin [Niaspan] 500 mg PO TID 02/03/13 Budesonide/Formoterol Fumarate [Symbicort 160-4.5 Mcg Inhaler] 2 puffs INH BID 07/30/19 Cyanocobalamin (Vitamin B-12) [Vitamin B-12] 1,000 mcg PO DAILY 07/30/19 Docusate Sodium [Dss] 250 mg PO BID 07/30/19 Sildenafil Citrate 100 mg PO PRN PRN 07/30/19 predniSONE [Deltasone] 20 mg PO DAILY 07/30/19 Acetaminophen [Tylenol] 650 mg PO DAILY 08/02/19 Albuterol 2.5 mg INH BID 08/02/19 Albuterol Sulfate [Proair Respiclick] 2 puffs IH QID PRN 08/02/19 Cholecalciferol (Vitamin D3) [Vitamin D3] 4,000 units PO DAILY 08/02/19 Fluticasone [Flonase] 2 sprays YULIA DAILY 08/02/19 Ipratropium [Atrovent] 0.5 mg INH BID 08/02/19 Loperamide HCl [Imodium A-D] 2 mg PO PRN PRN 08/02/19 Magnesium Oxide 1,260 mg PO QPM 08/02/19 Magnesium Oxide 840 mg PO DAILY 08/02/19 Tiotropium Br/Olodaterol HCl [Stiolto Respimat Inhal [place]] 2 puffs INH DAILY 08/02/19 Warfarin Sodium [Coumadin] 2 mg PO [place] 08/02/19 Warfarin Sodium [Coumadin] 3 mg PO TUTHFR 08/02/19
[2019-08-06] MEDS: QUEtiapine 25 MG TABLET PO SCH (20:31)
[2019-08-07] MEDS: SODIUM CHLORIDE FLUSH 0.9% 10 ML SYRINGE IVP SCH ×3 (00:12→16:24)
[2019-08-07] MEDS: SODIUM CHLORIDE 0.9% 1,000 ML IV SCH ×2 (02:33→14:56)
[2019-08-07] MEDS: PANTOPRAZOLE 40 MG TABLET PO SCH (06:06)
[2019-08-07 06:24] LABS: BASOPHILS % (AUTO) 0.1 %; EOSINOPHILS # (AUTO) 0.3 10^3/uL (0.0-0.7); EOSINOPHILS % (AUTO) 2.7 %; LYMPHOCYTES % (AUTO) 9.2 %; MEAN CORPUSCULAR HEMOGLOBIN 32.4 pg (27.0-31.0); MEAN CORPUSCULAR VOLUME 104.3 fL (80.0-94.0); MEAN PLATELET VOLUME 9.7 fL (7.4-11.4); MONOCYTES # (AUTO) 0.9 10^3/uL (0.0-1.0); MONOCYTES % (AUTO) 8.3 %; NEUTROPHILS # (AUTO) 8.5 10^3/uL (1.5-6.6); NEUTROPHILS % (AUTO) 79.1 %; PLT - PLATELET COUNT 250 10^3/uL (130-450); RED BLOOD COUNT 2.78 10^6/uL (4.70-6.10); RED CELL DISTRIBUTION WIDTH 17.2 % (12.0-15.0); WHITE BLOOD COUNT 10.8 x10^3/uL (4.8-10.8)
[2019-08-07 06:37] LABS: CALCIUM 8.1 mg/dL (8.5-10.3); CREATININE 0.6 mg/dL (0.6-1.2); MAGNESIUM 1.5 mg/dL (1.7-2.8); PHOSPHORUS 2.4 mg/dL (2.5-4.6)
[2019-08-07] MEDS: IPRATROPIUM/ALBUTEROL 3 ML NEB INH SCH ×5 (07:45→21:10)
[2019-08-07] MEDS: BUDESONIDE 0.5 MG/2 ML NEB INH SCH ×2 (08:00→21:10)
[2019-08-07] MEDS: FORMOTEROL FUMARATE NEB 20 MCG/2 ML INH SCH ×2 (08:00→21:10)
[2019-08-07] MEDS: FERROUS GLUCONATE 324 MG TABLET PO SCH (08:33)
[2019-08-07] MEDS: SERTRALINE 25 MG TABLET PO SCH (08:34)
[2019-08-07] MEDS: NEUTRA-PHOS 250 MG TABLET PO SCH ×3 (08:34→18:18)
[2019-08-07] MEDS: VANCOMYCIN 125 MG CAPSULE PO SCH ×4 (08:34→20:28)
[2019-08-07] MEDS: MAGNESIUM OXIDE 400 MG TABLET PO SCH (08:34)
[2019-08-07] MEDS: FOLIC ACID 1 MG TABLET PO SCH (08:35)
[2019-08-07] MEDS: THIAMINE 100 MG TABLET PO SCH (08:35)
[2019-08-07] MEDS: SACCHAROMYCES BOULARDII 250 MG CAPSULE PO SCH ×2 (08:35→16:23)
[2019-08-07] MEDS: cefTRIAXone 1 GM in SODIUM CHLORIDE 0.9% MINIBAG 100 ML IV SCH (08:35)
[2019-08-07] MEDS: NYSTATIN 500000 UNITS/5 ML UDC PO SCH ×4 (08:35→20:28)
--- NOTE | 2019-08-07 12:09 | PROVIDER PROGRESS NOTE ---
Assessment/Plan - Problem List (1) C. difficile diarrhea Assessment/Plan: 08/07 pt report he still has diarrhea but times and amount is reduced, stool is less watery. pt denies fever, chill, or abdominal pain. continue Oral Vancomycin continue gently iVF lab monitor, vital monitor 08/06 Pt report he still had diarrhea today. C.Diff test is positive. PO of Vancomycin IVF of NS lab monitor (2) UTI (urinary tract infection) Assessment/Plan: 08/07 WBC is down to normal, continue antibiotic with probiotics 08/06 pt's WBC is down to 11, closely normal. UA culture reveal pt has two positive bacterial in urine: Ecoli and Klebsiella Oxytoca, both sensitive to Rocephin. blood culture is negative for bactermia. continue Rocephin with probiotics. Pt has significant elevated WBC to 29. UA culture 08/04/2019 reveals two positive organism negative smita. start on Rocephin, sensitive study is pending. lab and vital monitor (3) chronic obstructive pulmonary disease exacerbation Impression: 08/07 pt report his breath is better. Continue DuoNeb at a fixed schedule, albuterol as needed, budesonide, Perforomist. 08/06 as his baseline Continue DuoNeb at a fixed schedule, albuterol as needed, budesonide, Perforomist. he agrees to register with cardiopulmonary rehab. STABLE. pt report he took oxygen for over ten years, pt has hx of severe COPD. Now he has 98% sat on 2-3 liter of O2 Continue DuoNeb at a fixed schedule, albuterol as needed, budesonide, Perforomist. stop steroids. After therapy for strength and conditioning at retirement facility, he agrees to register with cardiopulmonary rehab. (4) Alcohol abuse Impression: Resulting in macrocytic anemia, continue on B12 and folate and thiamine at this time. (5) Leukocytosis Impression: 08/06 significant improved, today WBC is 11 continue Rocephin to treat UTI significant elevated WBC even steroid is stopped. treat with antibiotics for UTI order blood culture (6) Adult failure to thrive syndrome Impression: combination of his COPD, alcohol abuse, and lack of capacity to make her own food and weakness plan: Physical therapy will continue to work with him. And plan is for retirement facility placement for improving his deconditioning, so that he can return to independent living in his home. (7) Severe protein-calorie malnutrition Impression: stable and improved. pt eat 100% of his meal - Current Meds Current Meds: Current Medications Generic Name Dose Route Start Last Admin Trade Name Freq PRN Reason Stop Dose Admin Acetaminophen 650 mg 08/02/19 18:24 08/05/19 17:15 Tylenol PO 650 mg Q4HR PRN Administration Pain or Fever > 38C (100.4F) Albuterol/Ipratropium 3 ml 07/30/19 11:00 08/07/19 08:00 Duoneb INH 3 ml RTQID LOY Administration Budesonide 0.5 mg 07/30/19 11:00 08/07/19 08:00 Pulmicort INH 0.5 mg RTBID LOY Administration Ferrous Gluconate 324 mg 08/01/19 15:00 08/07/19 08:33 Fergon PO 324 mg DAILYWM LOY Administration Folic Acid 1 mg 07/31/19 13:00 08/07/19 08:35 PO 1 mg DAILY LOY Administration Formoterol Fumarate 20 mcg 07/30/19 11:00 08/07/19 08:00 Perforomist INH 20 mcg RTBID LOY Administration Ceftriaxone Sodium 1 gm/ 100 mls @ 200 mls/hr 08/05/19 11:00 08/07/19 09:11 Sodium Chloride IV Infused DAILY LOY Infusion Sodium Chloride 1,000 mls @ 75 mls/hr 08/06/19 14:00 08/07/19 02:33 Normal Saline 0.9% IV 75 mls/hr .[id number] LOY Administration Magnesium Oxide 400 mg 08/02/19 08:00 08/07/19 08:34 Mag Ox PO 400 mg DAILYWM LOY Administration Nystatin 5 ml 07/30/19 19:00 08/07/19 11:45 Mycostatin PO 5 ml QID LOY Administration Pantoprazole Sodium 40 mg 07/30/19 07:00 08/07/19 06:06 Protonix PO 40 mg QDAC LOY Administration Phenol/Menthol 2 sprays 08/01/19 01:49 08/03/19 06:20 Chloraseptic MM 2 sprays Q2HR PRN Administration Throat Pain Quetiapine Fumarate 25 mg 08/01/19 21:00 08/06/19 20:31 Seroquel PO 25 mg QPM LOY Administration Saccharomyces Boulardii 250 mg 08/05/19 10:37 08/07/19 08:35 Florastor PO 250 mg BIDWM LOY Administration Sertraline HCl 25 mg 08/02/19 09:00 08/07/19 08:34 Zoloft PO 25 mg DAILY LOY Administration Sodium Chloride 10 ml 07/30/19 06:56 08/04/19 06:24 Normal Saline Flush 0.9% IVP 10 ml PRN PRN Administration NEEDED PER PROVIDER ORDERS Sodium Chloride 10 ml 07/30/19 09:00 08/07/19 00:12 Normal Saline Flush 0.9% IVP Not Given 0100,0900,1700 LOY Sodium Phosphate 250 mg 08/01/19 13:00 08/07/19 11:45 K-Phos Neutral PO 250 mg TIDWM LOY Administration Thiamine HCl 100 mg 07/31/19 13:00 08/07/19 08:35 Vitamin B-1 PO 100 mg DAILY LOY Administration Throat Lozenges 1 lozenge 07/30/19 16:58 08/04/19 06:33 Cepacol MM 1 lozenge Q2HR PRN Administration Throat pain Vancomycin HCl 125 mg 08/06/19 09:00 08/07/19 11:45 Vancocin PO 125 mg QID LOY Administration - Lab Result Fish Bone Diagrams: 08/07/19 06:00 08/07/19 06:00 - Additional Planning My Orders: My Active Orders 08/06/19 11:24 Obtain RT Consult as needed [RC] .once 08/06/19 14:00 Sodium Chloride 0.9% [Normal Saline 0.9%] 1,000 ml IV 75 mls/hr 08/08/19 05:00 BMP - BASIC METABOLIC PANEL [CHEM] DAILYLAB CBC - COMP BLD CT W/AUTO DIFF [HEME] DAILYLAB MAGNESIUM [CHEM] DAILYLAB PHOSPHORUS [CHEM] DAILYLAB 08/09/19 05:00 BMP - BASIC METABOLIC PANEL [CHEM] DAILYLAB CBC - COMP BLD CT W/AUTO DIFF [HEME] DAILYLAB MAGNESIUM [CHEM] DAILYLAB PHOSPHORUS [CHEM] DAILYLAB 08/10/19 05:00 BMP - BASIC METABOLIC PANEL [CHEM] DAILYLAB CBC - COMP BLD CT W/AUTO DIFF [HEME] DAILYLAB Subjective - Subjective Patient Reports: Feeling Better Objective Vital Signs: Vital Signs - 24 hr 08/06/19 08/06/19 08/06/19 15:30 16:56 23:59 Temperature 36.2 C L 36.4 C L Heart Rate 104 H Heart Rate [ Brachial] Heart Rate [ 107 H 107 H Radial] Respiratory 22 18 18 Rate Blood Pressure 133/82 H 131/83 H [Right Brachial artery] O2 Saturation 97 96 08/07/19 08/07/19 08:02 09:20 Temperature 36.6 C Heart Rate 104 H Heart Rate [ 118 H Brachial] Heart Rate [ Radial] Respiratory 18 20 Rate Blood Pressure 133/75 H [Right Brachial artery] O2 Saturation 94 Oxygen O2 Source Nasal cannula Oxygen Flow Rate 2 I&O (Last 24 Hrs): Intake and Output Totals x24h 08/05/19 08/06/19 08/07/19 23:59 23:59 23:59 Intake Total 2965 3190.329 1715 Output Total 1235 1550 750 Balance 1730 1640.329 965 General: Alert, Oriented x3, No acute distress HEENT: Atraumatic Neck: Supple Lymphatic: no adenopathy Neuro: Alert, Non Focal, Oriented Times 3 Cardiovascular: Regular rate, Normal S1, Normal S2 Respiratory: Chest non-tender, No respiratory distress Abdomen: Normal bowel sounds, Soft Extremities: No edema, Normal pulses - Results Results: Laboratory Results WBC 10.8 x10^3/uL (4.8-10.8) 08/07/19 06:00 RBC 2.78 10^6/uL (4.70-6.10) L 08/07/19 06:00 Hgb 9.0 g/dL (14.0-18.0) L 08/07/19 06:00 Hct 29.0 % (42.0-52.0) L 08/07/19 06:00 MCV 104.3 fL (80.0-94.0) H 08/07/19 06:00 MCH 32.4 pg (27.0-31.0) H 08/07/19 06:00 MCHC 31.0 g/dL (32.0-36.0) L 08/07/19 06:00 RDW 17.2 % (12.0-15.0) H 08/07/19 06:00 Plt Count 250 10^3/uL (130-450) 08/07/19 06:00 MPV 9.7 fL (7.4-11.4) 08/07/19 06:00 Reticulocyte % (Auto) 13.09 % (0.5-2.3) H 07/30/19 05:40 Neut # (Auto) 8.5 10^3/uL (1.5-6.6) H 08/07/19 06:00 Lymph # (Auto) 1.0 10^3/uL (1.5-3.5) L 08/07/19 06:00 Dent # (Auto) 0.9 10^3/uL (0.0-1.0) 08/07/19 06:00 Eos # (Auto) 0.3 10^3/uL (0.0-0.7) 08/07/19 06:00 Baso # (Auto) 0.0 10^3/uL (0.0-0.1) 08/07/19 06:00 Absolute Nucleated RBC 0.00 x10^3/uL 08/07/19 06:00 Total Counted 100 08/05/19 08:40 Band Neuts % (Manual) 0 % (0-10) 08/05/19 08:40 Abnorm Lymph % (Manual) 0 % 08/05/19 08:40 Myelocytes % 1 % (-0) H 07/30/19 05:40 Nucleated RBC % 0.0 /100WBC 08/07/19 06:00 Neutrophils # (Manual) 24.7 10^3/uL (1.5-6.6) H 08/05/19 08:40 Lymphocytes # (Manual) 3.0 10^3/uL (1.5-3.5) 08/05/19 08:40 Monocytes # (Manual) 1.2 10^3/uL (0.0-1.0) H 08/05/19 08:40 Eosinophils # (Manual) 0.0 10^3/uL (0-0.7) 08/05/19 08:40 Basophils # (Manual) 0.9 10^3/uL (0-0.1) H 08/05/19 08:40 Nucleated RBCs 1 % 08/05/19 08:40 Differential Comment MANUAL DIFFERENTIAL 08/05/19 08:40 Manual Slide Review Indicated 08/05/19 08:40 WBC Morphology NORMAL APPEARANCE (NORMAL) 07/31/19 05:40 Platelet Estimate INCREASED (>450,000) (NORMAL) 08/05/19 08:40 Platelet Morphology PLATELET C (NORMAL) 08/05/19 08:40 RBC Morph Micro Appear 2+ ANISOCYTOSIS (NORMAL) 1+ POLYCHROMASIA (NORMAL) 07/31/19 05:40 RBC Morph Micro Appear 1+ ANISOCYTOSIS (NORMAL) 1+ HYPOCHROMASIA (NORMAL) 1+ POLYCHROMASIA (NORMAL) 1+ OVALOCYTES (NORMAL) 08/01/19 04:35 RBC Morph Micro Appear 1+ ANISOCYTOSIS (NORMAL) 1+ HYPOCHROMASIA (NORMAL) 1+ POLYCHROMASIA (NORMAL) 1+ OVALOCYTES (NORMAL) 08/01/19 04:35 RBC Morph Micro Appear 1+ ANISOCYTOSIS (NORMAL) 1+ HYPOCHROMASIA (NORMAL) 1+ POLYCHROMASIA (NORMAL) 1+ OVALOCYTES (NORMAL) 08/01/19 04:35 RBC Morph Micro Appear 1+ ANISOCYTOSIS (NORMAL) 1+ HYPOCHROMASIA (NORMAL) 1+ POLYCHROMASIA (NORMAL) 1+ OVALOCYTES (NORMAL) 08/01/19 04:35 RBC Morph Micro Appear 1+ ANISOCYTOSIS (NORMAL) 1+ MACROCYTOSIS (NORMAL) 1+ HYPOCHROMASIA (NORMAL) 1+ POLYCHROMASIA (NORMAL) 1+ OVALOCYTES (NORMAL) 08/02/19 05:16 RBC Morph Micro Appear 1+ ANISOCYTOSIS (NORMAL) 1+ MACROCYTOSIS (NORMAL) 1+ HYPOCHROMASIA (NORMAL) 1+ POLYCHROMASIA (NORMAL) 1+ OVALOCYTES (NORMAL) 08/02/19 05:16 RBC Morph Micro Appear 1+ ANISOCYTOSIS (NORMAL) 1+ MACROCYTOSIS (NORMAL) 1+ HYPOCHROMASIA (NORMAL) 1+ POLYCHROMASIA (NORMAL) 1+ OVALOCYTES (NORMAL) 08/02/19 05:16 RBC Morph Micro Appear 1+ ANISOCYTOSIS (NORMAL) 1+ MACROCYTOSIS (NORMAL) 1+ HYPOCHROMASIA (NORMAL) 1+ POLYCHROMASIA (NORMAL) 1+ OVALOCYTES (NORMAL) 08/02/19 05:16 RBC Morph Micro Appear 1+ ANISOCYTOSIS (NORMAL) 1+ MACROCYTOSIS (NORMAL) 1+ HYPOCHROMASIA (NORMAL) 1+ POLYCHROMASIA (NORMAL) 1+ OVALOCYTES (NORMAL) 08/02/19 05:16 RBC Morph Micro Appear 1+ ANISOCYTOSIS (NORMAL) 1+ MACROCYTOSIS (NORMAL) 1+ HYPOCHROMASIA (NORMAL) 1+ POLYCHROMASIA (NORMAL) 1+ OVALOCYTES (NORMAL) 08/03/19 05:40 RBC Morph Micro Appear 1+ ANISOCYTOSIS (NORMAL) 1+ MACROCYTOSIS (NORMAL) 1+ HYPOCHROMASIA (NORMAL) 1+ POLYCHROMASIA (NORMAL) 1+ OVALOCYTES (NORMAL) 08/03/19 05:40 RBC Morph Micro Appear 1+ ANISOCYTOSIS (NORMAL) 1+ MACROCYTOSIS (NORMAL) 1+ HYPOCHROMASIA (NORMAL) 1+ POLYCHROMASIA (NORMAL) 1+ OVALOCYTES (NORMAL) 08/03/19 05:40 RBC Morph Micro Appear 1+ ANISOCYTOSIS (NORMAL) 1+ MACROCYTOSIS (NORMAL) 1+ HYPOCHROMASIA (NORMAL) 1+ POLYCHROMASIA (NORMAL) 1+ OVALOCYTES (NORMAL) 08/03/19 05:40 RBC Morph Micro Appear 1+ ANISOCYTOSIS (NORMAL) 1+ MACROCYTOSIS (NORMAL) 1+ HYPOCHROMASIA (NORMAL) 1+ POLYCHROMASIA (NORMAL) 1+ OVALOCYTES (NORMAL) 08/03/19 05:40 RBC Morph Micro Appear 1+ ANISOCYTOSIS (NORMAL) 1+ MACROCYTOSIS (NORMAL) 1+ POLYCHROMASIA (NORMAL) OVALOCYTES (NORMAL) 08/05/19 08:40 RBC Morph Micro Appear 1+ ANISOCYTOSIS (NORMAL) 1+ MACROCYTOSIS (NORMAL) 1+ POLYCHROMASIA (NORMAL) OVALOCYTES (NORMAL) 08/05/19 08:40 RBC Morph Micro Appear 1+ ANISOCYTOSIS (NORMAL) 1+ MACROCYTOSIS (NORMAL) 1+ POLYCHROMASIA (NORMAL) OVALOCYTES (NORMAL) 08/05/19 08:40 RBC Morph Micro Appear 1+ ANISOCYTOSIS (NORMAL) 1+ MACROCYTOSIS (NORMAL) 1+ POLYCHROMASIA (NORMAL) OVALOCYTES (NORMAL) 08/05/19 08:40 Absolute Retic 0.207 10^6/uL (0.020-0.110) H 07/30/19 05:40 Hematology Spec Commnt 0540 07/30/19 06:31 PT 9.5 secs (9.9-12.6) L 08/04/19 05:30 INR 0.8 (0.8-1.2) 08/04/19 05:30 Bld Gas Analysis Time 1604 07/31/19 16:04 Sample Site RIGHT RADIAL 07/31/19 16:04 ABG pH 7.47 (7.35-7.45) H 07/31/19 16:04 ABG pCO2 34 mmHg (34-45) 07/31/19 16:04 ABG pO2 66 mmHg (80-100) L 07/31/19 16:04 ABG HCO3 23.7 mmol/L (22.0-26.0) 07/31/19 16:04 ABG Total CO2 24.7 MMOL/L (21.0-29.0) 07/31/19 16:04 ABG O2 Saturation 94 % (94-98) 07/31/19 16:04 ABG Base Excess 0.4 mmol/L (-2.0-3.0) 07/31/19 16:04 Janes Test POSITIVE 07/31/19 16:04 O2 Delivery Device NASAL CANNULA 07/31/19 16:04 O2 Liters/Min 3.00 LPM 07/31/19 16:04 Sodium 141 mmol/L (135-145) 08/07/19 06:00 Potassium 3.9 mmol/L (3.5-5.0) 08/07/19 06:00 Chloride 110 mmol/L (101-111) 08/07/19 06:00 Carbon Dioxide 25 mmol/L (21-32) 08/07/19 06:00 Anion Gap 6.0 (6-13) 08/07/19 06:00 BUN 7 mg/dL (6-20) 08/07/19 06:00 Creatinine 0.6 mg/dL (0.6-1.2) 08/07/19 06:00 Estimated GFR (MDRD) 132 (>89) 08/07/19 06:00 Glucose 90 mg/dL (70-100) 08/07/19 06:00 Lactic Acid 2.9 mmol/L (0.5-2.2) H 07/30/19 05:40 Calcium 8.1 mg/dL (8.5-10.3) L 08/07/19 06:00 Phosphorus 2.4 mg/dL (2.5-4.6) L 08/07/19 06:00 Magnesium 1.5 mg/dL (1.7-2.8) L 08/07/19 06:00 Iron 39 ug/dL (45-182) L 07/30/19 05:40 TIBC 319 ug/dL (250-450) 07/30/19 05:40 % Saturation 12 % (20-50) L 07/30/19 05:40 Transferrin 228 mg/dL (180-329) 07/30/19 05:40 Ferritin 66.0 ng/mL (23.9-336.2) 07/30/19 05:40 Total Bilirubin 0.9 mg/dL (0.2-1.0) 08/05/19 08:40 AST 51 IU/L (10-42) H 08/05/19 08:40 ALT 81 IU/L (10-60) H 08/05/19 08:40 Alkaline Phosphatase 66 IU/L (42-121) 08/05/19 08:40 Lactate Dehydrogenase 198 IU/L (91-225) 07/30/19 05:40 B-Natriuretic Peptide 177 pg/mL (5-100) H 07/31/19 05:40 Total Protein 5.6 g/dL (6.7-8.2) L 08/05/19 08:40 Albumin 2.7 g/dL (3.2-5.5) L 08/05/19 08:40 Globulin 2.9 g/dL (2.1-4.2) 08/05/19 08:40 Albumin/Globulin Ratio 0.9 (1.0-2.2) L 08/05/19 08:40 Lipase 37 U/L (22-51) 07/30/19 05:40 Vitamin B12 258 pg/mL (180-914) 07/30/19 05:40 Folate 12.40 ng/mL (5.90 - >24.8) 07/30/19 05:40 Urine Color YELLOW 08/05/19 13:12 Urine Clarity HAZY (CLEAR) 08/05/19 13:12 Urine pH 5.5 PH (5.0-7.5) 08/05/19 13:12 Ur Specific [place] >=1.030 (1.002-1.030) H 08/05/19 13:12 Urine Protein NEGATIVE mg/dL (NEGATIVE) 08/05/19 13:12 Urine Glucose (UA) NEGATIVE mg/dL (NEGATIVE) 08/05/19 13:12 Urine Ketones NEGATIVE mg/dL (NEGATIVE) 08/05/19 13:12 Urine Occult Blood NEGATIVE (NEGATIVE) 08/05/19 13:12 Urine Nitrite NEGATIVE (NEGATIVE) 08/05/19 13:12 Urine Bilirubin NEGATIVE (NEGATIVE) 08/05/19 13:12 Urine Urobilinogen 0.2 (NORMAL) E.U./dL (NORMAL) 08/05/19 13:12 Ur Leukocyte Esterase NEGATIVE (NEGATIVE) 08/05/19 13:12 Urine RBC 0-5 /HPF (0-5) 08/05/19 13:12 Urine WBC 0-3 /HPF (0-3) 08/05/19 13:12 Ur Squamous Epith Cells RARE Squamous (<= Few) 08/05/19 13:12 Urine Bacteria Few /HPF (None Seen) 08/05/19 13:12 Ur Microscopic Review INDICATED 07/30/19 06:30 Urine Culture Comments NOT INDICATED 08/05/19 13:12 Stl Occult Blood (IFOB) Cancelled 07/30/19 05:12 Stool Leukocytes, Qual POSITIVE (Negative) 08/04/19 14:15 Stl C. diff Tox B Gene POSITIVE (NEGATIVE) A* 08/06/19 03:30 Urine Opiates Screen POSITIVE (NEGATIVE) H 07/30/19 12:25 Ur Oxycodone Screen NEGATIVE (NEGATIVE) 07/30/19 12:25 Urine Methadone Screen NEGATIVE (NEGATIVE) 07/30/19 12:25 Ur Propoxyphene Screen NEGATIVE (NEGATIVE) 07/30/19 12:25 Ur Barbiturates Screen NEGATIVE (NEGATIVE) 07/30/19 12:25 Ur Tricyclics Screen NEGATIVE (NEGATIVE) 07/30/19 12:25 Ur Phencyclidine Scrn NEGATIVE (NEGATIVE) 07/30/19 12:25 Ur Amphetamine Screen NEGATIVE (NEGATIVE) 07/30/19 12:25 U Methamphetamines Scrn NEGATIVE (NEGATIVE) 07/30/19 12:25 U Benzodiazepines Scrn NEGATIVE (NEGATIVE) 07/30/19 12:25 Urine Cocaine Screen NEGATIVE (NEGATIVE) 07/30/19 12:25 U Cannabinoids Screen NEGATIVE (NEGATIVE) 07/30/19 12:25 Ethyl Alcohol < 5.0 mg/dL 07/30/19 05:40 Slides for Path Review SEE SEPARATE REPORT 07/30/19 06:31 Blood Type B POSITIVE 07/30/19 06:35 Blood Type Recheck B POSITIVE 07/30/19 05:40 Antibody Screen NEGATIVE 07/30/19 06:35 Crossmatch IS Only See Detail 07/30/19 06:35 Sepsis Event Note (H) - Sepsis Criteria Sepsis Criteria: Recorded Heart Rate greater than 90 bpm, WBC count greater than 12,000 or less than 4000, Metabolic: lactate > 2 mmol/L, Hematologic: platelets < 100,000; INR > 1.5, or a PTT>60 seconds ABX Reporting Has patient been on IV antibiotics over the past 48 hours?: Yes Current Medications - Current Medications Current Medications: Active Medications Acetaminophen (Tylenol) 650 mg PO Q4HR PRN PRN Reason: Pain or Fever > 38C (100.4F) Last Admin: 08/05/19 17:15 Dose: 650 mg Albuterol () 2.5 mg INH RTQ4H PRN PRN Reason: Wheezing Albuterol/Ipratropium (Duoneb) 3 ml INH RTQID [facility] Last Admin: 08/07/19 08:00 Dose: 3 ml Budesonide (Pulmicort) 0.5 mg INH RTBID [facility] Last Admin: 08/07/19 08:00 Dose: 0.5 mg Ferrous Gluconate (Fergon) 324 mg PO DAILYWM [facility] Last Admin: 08/07/19 08:33 Dose: 324 mg Folic Acid () 1 mg PO DAILY [facility] Last Admin: 08/07/19 08:35 Dose: 1 mg Formoterol Fumarate (Perforomist) 20 mcg INH RTBID [facility] Last Admin: 08/07/19 08:00 Dose: 20 mcg Ceftriaxone Sodium 1 gm/ (Sodium Chloride) 100 mls @ 200 mls/hr IV DAILY [facility] Last Infusion: 08/07/19 09:11 Dose: Infused Sodium Chloride (Normal Saline 0.9%) 1,000 mls @ 75 mls/hr IV .[id number] [facility] Last Admin: 08/07/19 02:33 Dose: 75 mls/hr Magnesium Oxide (Mag Ox) 400 mg PO DAILYWM [facility] Last Admin: 08/07/19 08:34 Dose: 400 mg Nystatin (Mycostatin) 5 ml PO QID [facility] Last Admin: 08/07/19 11:45 Dose: 5 ml Pantoprazole Sodium (Protonix) 40 mg PO QDAC [facility] Last Admin: 08/07/19 06:06 Dose: 40 mg Phenol/Menthol (Chloraseptic) 2 sprays MM Q2HR PRN PRN Reason: Throat Pain Last Admin: 08/03/19 06:20 Dose: 2 sprays Quetiapine Fumarate (Seroquel) 25 mg PO QPM [facility] Last Admin: 08/06/19 20:31 Dose: 25 mg Saccharomyces Boulardii (Florastor) 250 mg PO BIDWM [facility] Last Admin: 08/07/19 08:35 Dose: 250 mg Sertraline HCl (Zoloft) 25 mg PO DAILY [facility] Last Admin: 08/07/19 08:34 Dose: 25 mg Sodium Chloride (Normal Saline Flush 0.9%) 10 ml IVP PRN PRN PRN Reason: NEEDED PER PROVIDER ORDERS Last Admin: 08/04/19 06:24 Dose: 10 ml Sodium Chloride (Normal Saline Flush 0.9%) 10 ml IVP 0100,0900,1700 [facility] Last Admin: 08/07/19 00:12 Dose: Not Given Sodium Phosphate (K-Phos Neutral) 250 mg PO TIDWM [facility] Last Admin: 08/07/19 11:45 Dose: 250 mg Thiamine HCl (Vitamin B-1) 100 mg PO DAILY [facility] Last Admin: 08/07/19 08:35 Dose: 100 mg Throat Lozenges (Cepacol) 1 lozenge MM Q2HR PRN PRN Reason: Throat pain Last Admin: 08/04/19 06:33 Dose: 1 lozenge Vancomycin HCl (Vancocin) 125 mg PO QID [facility] Last Admin: 08/07/19 11:45 Dose: 125 mg Amlodipine Besylate 5 mg PO BID 02/03/13 Atenolol [Tenormin] 50 mg PO DAILY 02/03/13 Bupropion HCl 75 mg PO BID 02/03/13 Calcium Carbonate/Vitamin D3 [Calcium 250+D Tablet] 2 each PO BID 02/03/13 Loratadine [Children's Clear-Atadine] 10 mg PO DAILY 02/03/13 Montelukast [Singulair] 10 mg PO DAILY 02/03/13 Niacin [Niaspan] 500 mg PO TID 02/03/13 Budesonide/Formoterol Fumarate [Symbicort 160-4.5 Mcg Inhaler] 2 puffs INH BID 07/30/19 Cyanocobalamin (Vitamin B-12) [Vitamin B-12] 1,000 mcg PO DAILY 07/30/19 Docusate Sodium [Dss] 250 mg PO BID 07/30/19 Sildenafil Citrate 100 mg PO PRN PRN 07/30/19 predniSONE [Deltasone] 20 mg PO DAILY 07/30/19 Acetaminophen [Tylenol] 650 mg PO DAILY 08/02/19 Albuterol 2.5 mg INH BID 08/02/19 Albuterol Sulfate [Proair Respiclick] 2 puffs IH QID PRN 08/02/19 Cholecalciferol (Vitamin D3) [Vitamin D3] 4,000 units PO DAILY 08/02/19 Fluticasone [Flonase] 2 sprays YULIA DAILY 08/02/19 Ipratropium [Atrovent] 0.5 mg INH BID 08/02/19 Loperamide HCl [Imodium A-D] 2 mg PO PRN PRN 08/02/19 Magnesium Oxide 1,260 mg PO QPM 08/02/19 Magnesium Oxide 840 mg PO DAILY 08/02/19 Tiotropium Br/Olodaterol HCl [Stiolto Respimat Inhal [place]] 2 puffs INH DAILY 08/02/19 Warfarin Sodium [Coumadin] 2 mg PO [place] 08/02/19 Warfarin Sodium [Coumadin] 3 mg PO TUTHFR 08/02/19
[2019-08-07] MEDS ORDERED: MAGNESIUM OXIDE 400 MG TABLET PO ONE (16:00)
[2019-08-07] MEDS: QUEtiapine 25 MG TABLET PO SCH (20:28)
[2019-08-08] MEDS: SODIUM CHLORIDE FLUSH 0.9% 10 ML SYRINGE IVP SCH ×3 (00:49→18:18)
[2019-08-08] MEDS: SODIUM CHLORIDE 0.9% 1,000 ML IV SCH ×2 (03:46→18:52)
[2019-08-08 05:12] LABS: BASOPHILS % (AUTO) 0.2 %; EOSINOPHILS # (AUTO) 0.3 10^3/uL (0.0-0.7); EOSINOPHILS % (AUTO) 3.2 %; HGB - HEMOGLOBIN 8.8 g/dL (14.0-18.0); LYMPHOCYTES # (AUTO) 1.1 10^3/uL (1.5-3.5); LYMPHOCYTES % (AUTO) 10.3 %; MEAN CORPUSCULAR HEMOGLOBIN 32.5 pg (27.0-31.0); MEAN CORPUSCULAR HGB CONC 30.9 g/dL (32.0-36.0); MEAN CORPUSCULAR VOLUME 105.2 fL (80.0-94.0); MEAN PLATELET VOLUME 9.4 fL (7.4-11.4); MONOCYTES % (AUTO) 10.1 %; NEUTROPHILS # (AUTO) 7.8 10^3/uL (1.5-6.6); NEUTROPHILS % (AUTO) 75.7 %; PLT - PLATELET COUNT 246 10^3/uL (130-450); RED BLOOD COUNT 2.71 10^6/uL (4.70-6.10); RED CELL DISTRIBUTION WIDTH 16.8 % (12.0-15.0); WHITE BLOOD COUNT 10.3 x10^3/uL (4.8-10.8)
[2019-08-08 05:35] LABS: CALCIUM 7.8 mg/dL (8.5-10.3); CREATININE 0.6 mg/dL (0.6-1.2); MAGNESIUM 1.4 mg/dL (1.7-2.8); PHOSPHORUS 2.2 mg/dL (2.5-4.6)
[2019-08-08] MEDS: PANTOPRAZOLE 40 MG TABLET PO SCH (06:22)
[2019-08-08] MEDS: BUDESONIDE 0.5 MG/2 ML NEB INH SCH ×2 (07:29→19:52)
[2019-08-08] MEDS: IPRATROPIUM/ALBUTEROL 3 ML NEB INH SCH ×4 (07:29→19:52)
[2019-08-08] MEDS: FORMOTEROL FUMARATE NEB 20 MCG/2 ML INH SCH ×2 (07:29→19:52)
[2019-08-08] MEDS ORDERED: NEUTRA-PHOS 250 MG TABLET PO SCH (08:00)
[2019-08-08] MEDS ORDERED: MAGNESIUM SULFATE 2 GRAM 2 GM/50 ML BAG IV SCH (08:00)
[2019-08-08] MEDS: SACCHAROMYCES BOULARDII 250 MG CAPSULE PO SCH (08:32)
[2019-08-08] MEDS: MAGNESIUM OXIDE 400 MG TABLET PO SCH ×2 (08:32→21:12)
[2019-08-08] MEDS: VANCOMYCIN 125 MG CAPSULE PO SCH ×4 (08:32→21:12)
[2019-08-08] MEDS: FERROUS GLUCONATE 324 MG TABLET PO SCH (08:32)
[2019-08-08] MEDS: PRENATAL VITAMIN TABLET PO SCH (08:32)
[2019-08-08] MEDS: NEUTRA-PHOS 250 MG TABLET PO SCH ×3 (08:32→17:00)
[2019-08-08] MEDS: SERTRALINE 25 MG TABLET PO SCH (08:33)
[2019-08-08] MEDS: SULFAMETH/TRIMETH DS 800/160 MG TABLET PO SCH ×2 (10:19→21:12)
[2019-08-08] MEDS: NYSTATIN 500000 UNITS/5 ML UDC PO SCH ×4 (10:20→21:12)
[2019-08-08] MEDS ORDERED: levoFLOXacin 250 MG TABLET PO SCH (12:00)
--- NOTE | 2019-08-08 12:18 | PROVIDER PROGRESS NOTE ---
Assessment/Plan - Problem List (1) C. difficile diarrhea Assessment/Plan: 08/08 pt still has diarrhea, has significant amount watery stool I saw in the morning. pt has UTI and still has Rocephin antibiotics for treatment of UTI according to UA culture and sensitivity study. pt was given probiotics. Research on Update, switch to Bactrim to treat UTI and stop the Probiotics. continue PO Vancomycin and IVF 08/07 pt report he still has diarrhea but times and amount is reduced, stool is less watery. pt denies fever, chill, or abdominal pain. continue Oral Vancomycin continue gently iVF lab monitor, vital monitor 08/06 Pt report he still had diarrhea today. C.Diff test is positive. PO of Vancomycin IVF of NS lab monitor (2) UTI (urinary tract infection) Assessment/Plan: 08/08 switch antibiotics to Bactrim 08/07 WBC is down to normal, continue antibiotic with probiotics 08/06 pt's WBC is down to 11, closely normal. UA culture reveal pt has two positive bacterial in urine: Ecoli and Klebsiella Oxytoca, both sensitive to Rocephin. blood culture is negative for bactermia. continue Rocephin with probiotics. Pt has significant elevated WBC to 29. UA culture 08/04/2019 reveals two positive organism negative smita. start on Rocephin, sensitive study is pending. lab and vital monitor (3) chronic obstructive pulmonary disease exacerbation Impression: 08/08 stable 08/07 pt report his breath is better. Continue DuoNeb at a fixed schedule, albuterol as needed, budesonide, Perforomist. 08/06 as his baseline Continue DuoNeb at a fixed schedule, albuterol as needed, budesonide, Perforomist. he agrees to register with cardiopulmonary rehab. STABLE. pt report he took oxygen for over ten years, pt has hx of severe COPD. Now he has 98% sat on 2-3 liter of O2 Continue DuoNeb at a fixed schedule, albuterol as needed, budesonide, Perforomist. stop steroids. After therapy for strength and conditioning at retirement facility, he agrees to register with cardiopulmonary rehab. (4) Alcohol abuse Impression: Resulting in macrocytic anemia, continue on B12 and folate and thiamine at this time. (5) Leukocytosis Impression: 08/08 normal arrange WBC 08/06 significant improved, today WBC is 11 continue Rocephin to treat UTI significant elevated WBC even steroid is stopped. treat with antibiotics for UTI order blood culture (6) Adult failure to thrive syndrome Impression: combination of his COPD, alcohol abuse, and lack of capacity to make her own food and weakness plan: Physical therapy will continue to work with him. And plan is for retirement facility placement for improving his deconditioning, so that he can return to independent living in his home. (7) Severe protein-calorie malnutrition Impression: stable and improved. pt eat 100% of his meal - Current Meds Current Meds: Current Medications Generic Name Dose Route Start Last Admin Trade Name Freq PRN Reason Stop Dose Admin Acetaminophen 650 mg 08/02/19 18:24 08/05/19 17:15 Tylenol PO 650 mg Q4HR PRN Administration Pain or Fever > 38C (100.4F) Albuterol/Ipratropium 3 ml 07/30/19 11:00 08/08/19 07:29 Duoneb INH 3 ml RTQID LOY Administration Budesonide 0.5 mg 07/30/19 11:00 08/08/19 07:29 Pulmicort INH 0.5 mg RTBID LOY Administration Ferrous Gluconate 324 mg 08/01/19 15:00 08/08/19 08:32 Fergon PO 324 mg DAILYWM LOY Administration Formoterol Fumarate 20 mcg 07/30/19 11:00 08/08/19 07:29 Perforomist INH 20 mcg RTBID LOY Administration Sodium Chloride 1,000 mls @ 75 mls/hr 08/06/19 14:00 08/08/19 03:46 Normal Saline 0.9% IV 75 mls/hr .[id number] LOY Administration Magnesium Oxide 800 mg 08/08/19 08:00 08/08/19 08:32 Mag Ox PO 800 mg DAILYWM LOY Administration Nystatin 5 ml 07/30/19 19:00 08/08/19 10:20 Mycostatin PO 5 ml QID LOY Administration Pantoprazole Sodium 40 mg 07/30/19 07:00 08/08/19 06:22 Protonix PO 40 mg QDAC LOY Administration Phenol/Menthol 2 sprays 08/01/19 01:49 08/03/19 06:20 Chloraseptic MM 2 sprays Q2HR PRN Administration Throat Pain Multivit/Folic Acid/Iron 1 tab 08/08/19 08:00 08/08/19 08:32 Trinatal Rx 1 PO 1 tab DAILYWM LOY Administration Quetiapine Fumarate 25 mg 08/01/19 21:00 08/07/19 20:28 Seroquel PO 25 mg QPM LOY Administration Sertraline HCl 25 mg 08/02/19 09:00 08/08/19 08:33 Zoloft PO 25 mg DAILY LOY Administration Sodium Chloride 10 ml 07/30/19 06:56 08/04/19 06:24 Normal Saline Flush 0.9% IVP 10 ml PRN PRN Administration NEEDED PER PROVIDER ORDERS Sodium Chloride 10 ml 07/30/19 09:00 08/08/19 08:33 Normal Saline Flush 0.9% IVP Not Given 0100,0900,1700 LOY Sodium Phosphate 250 mg 08/01/19 13:00 08/08/19 08:32 K-Phos Neutral PO 250 mg TIDWM LOY Administration Throat Lozenges 1 lozenge 07/30/19 16:58 08/04/19 06:33 Cepacol MM 1 lozenge Q2HR PRN Administration Throat pain Trimethoprim/Sulfamethoxazole 1 tab 08/08/19 10:00 08/08/19 10:19 Bactrim Ds 800/160 PO 1 tab BID LOY Administration Vancomycin HCl 125 mg 08/06/19 09:00 08/08/19 08:32 Vancocin PO 125 mg QID LOY Administration - Lab Result Fish Bone Diagrams: 08/08/19 04:45 08/08/19 04:45 - Additional Planning My Orders: My Active Orders 08/08/19 08:00 Magnesium Oxide [Mag Ox] 800 mg PO DAILYWM Vitamin [Trinatal Rx 1] 1 tab PO DAILYWM 08/08/19 08:50 Acapella [RC] .TID 08/08/19 10:00 Sulfamethox/Trimeth 800/160 [Bactrim Ds 800/160] 1 tab PO BID 08/09/19 05:00 BMP - BASIC METABOLIC PANEL [CHEM] DAILYLAB CBC - COMP BLD CT W/AUTO DIFF [HEME] DAILYLAB MAGNESIUM [CHEM] DAILYLAB PHOSPHORUS [CHEM] DAILYLAB 08/10/19 05:00 BMP - BASIC METABOLIC PANEL [CHEM] DAILYLAB CBC - COMP BLD CT W/AUTO DIFF [HEME] DAILYLAB Subjective - Subjective Patient Reports: Feeling Better Objective Vital Signs: Vital Signs - 24 hr 08/07/19 08/07/19 08/07/19 12:54 16:30 16:52 Temperature 36.5 C Heart Rate 100 108 H Heart Rate [ 103 H Brachial] Respiratory 20 20 18 Rate Blood Pressure 123/68 [Right Brachial artery] O2 Saturation 96 08/07/19 08/08/19 08/08/19 21:12 00:55 07:02 Temperature 36.5 C 36.5 C Heart Rate 100 Heart Rate [ 87 92 Brachial] Respiratory 16 18 18 Rate Blood Pressure 137/79 H 124/73 [Right Brachial artery] O2 Saturation 97 97 08/08/19 07:29 Temperature Heart Rate 95 Heart Rate [ Brachial] Respiratory 22 Rate Blood Pressure [Right Brachial artery] O2 Saturation Oxygen O2 Source Nasal cannula Oxygen Flow Rate 2 I&O (Last 24 Hrs): Intake and Output Totals x24h 08/06/19 08/07/19 08/08/19 23:59 23:59 23:59 Intake Total 3190.329 3603.75 1362.5 Output Total 1550 1500 1250 Balance 1718.986 1732.75 112.5 General: Alert, Oriented x3, No acute distress HEENT: Atraumatic Neck: Supple Lymphatic: no adenopathy Neuro: Alert, Non Focal, Oriented Times 3 Cardiovascular: Regular rate, Normal S1, Normal S2 Respiratory: Chest non-tender, No respiratory distress Abdomen: Normal bowel sounds, Soft Extremities: No edema, Normal pulses - Results Results: Laboratory Results WBC 10.3 x10^3/uL (4.8-10.8) 08/08/19 04:45 RBC 2.71 10^6/uL (4.70-6.10) L 08/08/19 04:45 Hgb 8.8 g/dL (14.0-18.0) L 08/08/19 04:45 Hct 28.5 % (42.0-52.0) L 08/08/19 04:45 MCV 105.2 fL (80.0-94.0) H 08/08/19 04:45 MCH 32.5 pg (27.0-31.0) H 08/08/19 04:45 MCHC 30.9 g/dL (32.0-36.0) L 08/08/19 04:45 RDW 16.8 % (12.0-15.0) H 08/08/19 04:45 Plt Count 246 10^3/uL (130-450) 08/08/19 04:45 MPV 9.4 fL (7.4-11.4) 08/08/19 04:45 Reticulocyte % (Auto) 13.09 % (0.5-2.3) H 07/30/19 05:40 Neut # (Auto) 7.8 10^3/uL (1.5-6.6) H 08/08/19 04:45 Lymph # (Auto) 1.1 10^3/uL (1.5-3.5) L 08/08/19 04:45 Kay # (Auto) 1.0 10^3/uL (0.0-1.0) 08/08/19 04:45 Eos # (Auto) 0.3 10^3/uL (0.0-0.7) 08/08/19 04:45 Baso # (Auto) 0.0 10^3/uL (0.0-0.1) 08/08/19 04:45 Absolute Nucleated RBC 0.00 x10^3/uL 08/08/19 04:45 Total Counted 100 08/05/19 08:40 Band Neuts % (Manual) 0 % (0-10) 08/05/19 08:40 Abnorm Lymph % (Manual) 0 % 08/05/19 08:40 Myelocytes % 1 % (-0) H 07/30/19 05:40 Nucleated RBC % 0.0 /100WBC 08/08/19 04:45 Neutrophils # (Manual) 24.7 10^3/uL (1.5-6.6) H 08/05/19 08:40 Lymphocytes # (Manual) 3.0 10^3/uL (1.5-3.5) 08/05/19 08:40 Monocytes # (Manual) 1.2 10^3/uL (0.0-1.0) H 08/05/19 08:40 Eosinophils # (Manual) 0.0 10^3/uL (0-0.7) 08/05/19 08:40 Basophils # (Manual) 0.9 10^3/uL (0-0.1) H 08/05/19 08:40 Nucleated RBCs 1 % 08/05/19 08:40 Differential Comment MANUAL DIFFERENTIAL 08/05/19 08:40 Manual Slide Review Indicated 08/05/19 08:40 WBC Morphology NORMAL APPEARANCE (NORMAL) 07/31/19 05:40 Platelet Estimate INCREASED (>450,000) (NORMAL) 08/05/19 08:40 Platelet Morphology PLATELET C (NORMAL) 08/05/19 08:40 RBC Morph Micro Appear 2+ ANISOCYTOSIS (NORMAL) 1+ POLYCHROMASIA (NORMAL) 07/31/19 05:40 RBC Morph Micro Appear 1+ ANISOCYTOSIS (NORMAL) 1+ HYPOCHROMASIA (NORMAL) 1+ POLYCHROMASIA (NORMAL) 1+ OVALOCYTES (NORMAL) 08/01/19 04:35 RBC Morph Micro Appear 1+ ANISOCYTOSIS (NORMAL) 1+ HYPOCHROMASIA (NORMAL) 1+ POLYCHROMASIA (NORMAL) 1+ OVALOCYTES (NORMAL) 08/01/19 04:35 RBC Morph Micro Appear 1+ ANISOCYTOSIS (NORMAL) 1+ HYPOCHROMASIA (NORMAL) 1+ POLYCHROMASIA (NORMAL) 1+ OVALOCYTES (NORMAL) 08/01/19 04:35 RBC Morph Micro Appear 1+ ANISOCYTOSIS (NORMAL) 1+ HYPOCHROMASIA (NORMAL) 1+ POLYCHROMASIA (NORMAL) 1+ OVALOCYTES (NORMAL) 08/01/19 04:35 RBC Morph Micro Appear 1+ ANISOCYTOSIS (NORMAL) 1+ MACROCYTOSIS (NORMAL) 1+ HYPOCHROMASIA (NORMAL) 1+ POLYCHROMASIA (NORMAL) 1+ OVALOCYTES (NORMAL) 0 08/02/19 05:16 RBC Morph Micro Appear 1+ ANISOCYTOSIS (NORMAL) 1+ MACROCYTOSIS (NORMAL) 1+ HYPOCHROMASIA (NORMAL) 1+ POLYCHROMASIA (NORMAL) 1+ OVALOCYTES (NORMAL) 08/02/19 05:16 RBC Morph Micro Appear 1+ ANISOCYTOSIS (NORMAL) 1+ MACROCYTOSIS (NORMAL) 1+ HYPOCHROMASIA (NORMAL) 1+ POLYCHROMASIA (NORMAL) 1+ OVALOCYTES (NORMAL) 08/02/19 05:16 RBC Morph Micro Appear 1+ ANISOCYTOSIS (NORMAL) 1+ MACROCYTOSIS (NORMAL) 1+ HYPOCHROMASIA (NORMAL) 1+ POLYCHROMASIA (NORMAL) 1+ OVALOCYTES (NORMAL) 08/02/19 05:16 RBC Morph Micro Appear 1+ ANISOCYTOSIS (NORMAL) 1+ MACROCYTOSIS (NORMAL) 1+ HYPOCHROMASIA (NORMAL) 1+ POLYCHROMASIA (NORMAL) 1+ OVALOCYTES (NORMAL) 08/02/19 05:16 RBC Morph Micro Appear 1+ ANISOCYTOSIS (NORMAL) 1+ MACROCYTOSIS (NORMAL) 1+ HYPOCHROMASIA (NORMAL) 1+ POLYCHROMASIA (NORMAL) 1+ OVALOCYTES (NORMAL) 08/03/19 05:40 RBC Morph Micro Appear 1+ ANISOCYTOSIS (NORMAL) 1+ MACROCYTOSIS (NORMAL) 1+ HYPOCHROMASIA (NORMAL) 1+ POLYCHROMASIA (NORMAL) 1+ OVALOCYTES (NORMAL) 08/03/19 05:40 RBC Morph Micro Appear 1+ ANISOCYTOSIS (NORMAL) 1+ MACROCYTOSIS (NORMAL) 1+ HYPOCHROMASIA (NORMAL) 1+ POLYCHROMASIA (NORMAL) 1+ OVALOCYTES (NORMAL) 08/03/19 05:40 RBC Morph Micro Appear 1+ ANISOCYTOSIS (NORMAL) 1+ MACROCYTOSIS (NORMAL) 1+ HYPOCHROMASIA (NORMAL) 1+ POLYCHROMASIA (NORMAL) 1+ OVALOCYTES (NORMAL) 08/03/19 05:40 RBC Morph Micro Appear 1+ ANISOCYTOSIS (NORMAL) 1+ MACROCYTOSIS (NORMAL) 1+ HYPOCHROMASIA (NORMAL) 1+ POLYCHROMASIA (NORMAL) 1+ OVALOCYTES (NORMAL) 08/03/19 05:40 RBC Morph Micro Appear 1+ ANISOCYTOSIS (NORMAL) 1+ MACROCYTOSIS (NORMAL) 1+ POLYCHROMASIA (NORMAL) OVALOCYTES (NORMAL) 08/05/19 08:40 RBC Morph Micro Appear 1+ ANISOCYTOSIS (NORMAL) 1+ MACROCYTOSIS (NORMAL) 1+ POLYCHROMASIA (NORMAL) OVALOCYTES (NORMAL) 08/05/19 08:40 RBC Morph Micro Appear 1+ ANISOCYTOSIS (NORMAL) 1+ MACROCYTOSIS (NORMAL) 1+ POLYCHROMASIA (NORMAL) OVALOCYTES (NORMAL) 08/05/19 08:40 RBC Morph Micro Appear 1+ ANISOCYTOSIS (NORMAL) 1+ MACROCYTOSIS (NORMAL) 1+ POLYCHROMASIA (NORMAL) OVALOCYTES (NORMAL) 08/05/19 08:40 Absolute Retic 0.207 10^6/uL (0.020-0.110) H 07/30/19 05:40 Hematology Spec Commnt 0540 07/30/19 06:31 PT 9.5 secs (9.9-12.6) L 08/04/19 05:30 INR 0.8 (0.8-1.2) 08/04/19 05:30 Bld Gas Analysis Time 1604 07/31/19 16:04 Sample Site RIGHT RADIAL 07/31/19 16:04 ABG pH 7.47 (7.35-7.45) H 07/31/19 16:04 ABG pCO2 34 mmHg (34-45) 07/31/19 16:04 ABG pO2 66 mmHg (80-100) L 07/31/19 16:04 ABG HCO3 23.7 mmol/L (22.0-26.0) 07/31/19 16:04 ABG Total CO2 24.7 MMOL/L (21.0-29.0) 07/31/19 16:04 ABG O2 Saturation 94 % (94-98) 07/31/19 16:04 ABG Base Excess 0.4 mmol/L (-2.0-3.0) 07/31/19 16:04 Janes Test POSITIVE 07/31/19 16:04 O2 Delivery Device NASAL CANNULA 07/31/19 16:04 O2 Liters/Min 3.00 LPM 07/31/19 16:04 Sodium 139 mmol/L (135-145) 08/08/19 04:45 Potassium 4.0 mmol/L (3.5-5.0) 08/08/19 04:45 Chloride 109 mmol/L (101-111) 08/08/19 04:45 Carbon Dioxide 26 mmol/L (21-32) 08/08/19 04:45 Anion Gap 4.0 (6-13) L 08/08/19 04:45 BUN 6 mg/dL (6-20) 08/08/19 04:45 Creatinine 0.6 mg/dL (0.6-1.2) 08/08/19 04:45 Estimated GFR (MDRD) 132 (>89) 08/08/19 04:45 Glucose 87 mg/dL (70-100) 08/08/19 04:45 Lactic Acid 2.9 mmol/L (0.5-2.2) H 07/30/19 05:40 Calcium 7.8 mg/dL (8.5-10.3) L 08/08/19 04:45 Phosphorus 2.2 mg/dL (2.5-4.6) L 08/08/19 04:45 Magnesium 1.4 mg/dL (1.7-2.8) L 08/08/19 04:45 Iron 39 ug/dL (45-182) L 07/30/19 05:40 TIBC 319 ug/dL (250-450) 07/30/19 05:40 % Saturation 12 % (20-50) L 07/30/19 05:40 Transferrin 228 mg/dL (180-329) 07/30/19 05:40 Ferritin 66.0 ng/mL (23.9-336.2) 07/30/19 05:40 Total Bilirubin 0.9 mg/dL (0.2-1.0) 08/05/19 08:40 AST 51 IU/L (10-42) H 08/05/19 08:40 ALT 81 IU/L (10-60) H 08/05/19 08:40 Alkaline Phosphatase 66 IU/L (42-121) 08/05/19 08:40 Lactate Dehydrogenase 198 IU/L (91-225) 07/30/19 05:40 B-Natriuretic Peptide 177 pg/mL (5-100) H 07/31/19 05:40 Total Protein 5.6 g/dL (6.7-8.2) L 08/05/19 08:40 Albumin 2.7 g/dL (3.2-5.5) L 08/05/19 08:40 Globulin 2.9 g/dL (2.1-4.2) 08/05/19 08:40 Albumin/Globulin Ratio 0.9 (1.0-2.2) L 08/05/19 08:40 Lipase 37 U/L (22-51) 07/30/19 05:40 Vitamin B12 258 pg/mL (180-914) 07/30/19 05:40 Folate 12.40 ng/mL (5.90 - >24.8) 07/30/19 05:40 Urine Color YELLOW 08/05/19 13:12 Urine Clarity HAZY (CLEAR) 08/05/19 13:12 Urine pH 5.5 PH (5.0-7.5) 08/05/19 13:12 Ur Specific [place] >=1.030 (1.002-1.030) H 08/05/19 13:12 Urine Protein NEGATIVE mg/dL (NEGATIVE) 08/05/19 13:12 Urine Glucose (UA) NEGATIVE mg/dL (NEGATIVE) 08/05/19 13:12 Urine Ketones NEGATIVE mg/dL (NEGATIVE) 08/05/19 13:12 Urine Occult Blood NEGATIVE (NEGATIVE) 08/05/19 13:12 Urine Nitrite NEGATIVE (NEGATIVE) 08/05/19 13:12 Urine Bilirubin NEGATIVE (NEGATIVE) 08/05/19 13:12 Urine Urobilinogen 0.2 (NORMAL) E.U./dL (NORMAL) 08/05/19 13:12 Ur Leukocyte Esterase NEGATIVE (NEGATIVE) 08/05/19 13:12 Urine RBC 0-5 /HPF (0-5) 08/05/19 13:12 Urine WBC 0-3 /HPF (0-3) 08/05/19 13:12 Ur Squamous Epith Cells RARE Squamous (<= Few) 08/05/19 13:12 Urine Bacteria Few /HPF (None Seen) 08/05/19 13:12 Ur Microscopic Review INDICATED 07/30/19 06:30 Urine Culture Comments NOT INDICATED 08/05/19 13:12 Stool Fat, Qual ABNORMAL (NORMAL) A 08/04/19 14:15 Stl Occult Blood (IFOB) Cancelled 07/30/19 05:12 Stool Leukocytes, Qual POSITIVE (Negative) 08/04/19 14:15 Stl C. diff Tox B Gene POSITIVE (NEGATIVE) A* 08/06/19 03:30 Urine Opiates Screen POSITIVE (NEGATIVE) H 07/30/19 12:25 Ur Oxycodone Screen NEGATIVE (NEGATIVE) 07/30/19 12:25 Urine Methadone Screen NEGATIVE (NEGATIVE) 07/30/19 12:25 Ur Propoxyphene Screen NEGATIVE (NEGATIVE) 07/30/19 12:25 Ur Barbiturates Screen NEGATIVE (NEGATIVE) 07/30/19 12:25 Ur Tricyclics Screen NEGATIVE (NEGATIVE) 07/30/19 12:25 Ur Phencyclidine Scrn NEGATIVE (NEGATIVE) 07/30/19 12:25 Ur Amphetamine Screen NEGATIVE (NEGATIVE) 07/30/19 12:25 U Methamphetamines Scrn NEGATIVE (NEGATIVE) 07/30/19 12:25 U Benzodiazepines Scrn NEGATIVE (NEGATIVE) 07/30/19 12:25 Urine Cocaine Screen NEGATIVE (NEGATIVE) 07/30/19 12:25 U Cannabinoids Screen NEGATIVE (NEGATIVE) 07/30/19 12:25 Ethyl Alcohol < 5.0 mg/dL 07/30/19 05:40 Slides for Path Review SEE SEPARATE REPORT 07/30/19 06:31 Blood Type B POSITIVE 07/30/19 06:35 Blood Type Recheck B POSITIVE 07/30/19 05:40 Antibody Screen NEGATIVE 07/30/19 06:35 Crossmatch IS Only See Detail 07/30/19 06:35 Sepsis Event Note (H) - Sepsis Criteria Sepsis Criteria: Recorded Heart Rate greater than 90 bpm, WBC count greater than 12,000 or less than 4000, Metabolic: lactate > 2 mmol/L, Hematologic: platelets < 100,000; INR > 1.5, or a PTT>60 seconds ABX Reporting Has patient been on IV antibiotics over the past 48 hours?: Yes Current Medications - Current Medications Current Medications: Active Medications Acetaminophen (Tylenol) 650 mg PO Q4HR PRN PRN Reason: Pain or Fever > 38C (100.4F) Last Admin: 08/05/19 17:15 Dose: 650 mg Albuterol () 2.5 mg INH RTQ4H PRN PRN Reason: Wheezing Albuterol/Ipratropium (Duoneb) 3 ml INH RTQID [facility] Last Admin: 08/08/19 12:51 Dose: 3 ml Budesonide (Pulmicort) 0.5 mg INH RTBID [facility] Last Admin: 08/08/19 07:29 Dose: 0.5 mg Ferrous Gluconate (Fergon) 324 mg PO DAILYWM [facility] Last Admin: 08/08/19 08:32 Dose: 324 mg Formoterol Fumarate (Perforomist) 20 mcg INH RTBID LOY Last Admin: 08/08/19 07:29 Dose: 20 mcg Sodium Chloride (Normal Saline 0.9%) 1,000 mls @ 75 mls/hr IV .[id number] [facility] Last Admin: 08/08/19 03:46 Dose: 75 mls/hr Magnesium Oxide (Mag Ox) 800 mg PO DAILYWM [facility] Last Admin: 08/08/19 08:32 Dose: 800 mg Nystatin (Mycostatin) 5 ml PO QID [facility] Last Admin: 08/08/19 13:07 Dose: 5 ml Pantoprazole Sodium (Protonix) 40 mg PO QDAC [facility] Last Admin: 08/08/19 06:22 Dose: 40 mg Phenol/Menthol (Chloraseptic) 2 sprays MM Q2HR PRN PRN Reason: Throat Pain Last Admin: 08/03/19 06:20 Dose: 2 sprays Multivit/Folic Acid/Iron (Trinatal Rx 1) 1 tab PO DAILYWM [facility] Last Admin: 08/08/19 08:32 Dose: 1 tab Quetiapine Fumarate (Seroquel) 25 mg PO QPM [facility] Last Admin: 08/07/19 20:28 Dose: 25 mg Sertraline HCl (Zoloft) 25 mg PO DAILY [facility] Last Admin: 08/08/19 08:33 Dose: 25 mg Sodium Chloride (Normal Saline Flush 0.9%) 10 ml IVP PRN PRN PRN Reason: NEEDED PER PROVIDER ORDERS Last Admin: 08/04/19 06:24 Dose: 10 ml Sodium Chloride (Normal Saline Flush 0.9%) 10 ml IVP 0100,0900,1700 [facility] Last Admin: 08/08/19 08:33 Dose: Not Given Sodium Phosphate (K-Phos Neutral) 250 mg PO TIDWM [facility] Last Admin: 08/08/19 13:07 Dose: 250 mg Throat Lozenges (Cepacol) 1 lozenge MM Q2HR PRN PRN Reason: Throat pain Last Admin: 08/04/19 06:33 Dose: 1 lozenge Trimethoprim/Sulfamethoxazole (Bactrim Ds 800/160) 1 tab PO BID [facility] Last Admin: 08/08/19 10:19 Dose: 1 tab Vancomycin HCl (Vancocin) 125 mg PO QID [facility] Last Admin: 08/08/19 13:07 Dose: 125 mg Amlodipine Besylate 5 mg PO BID 02/03/13 Atenolol [Tenormin] 50 mg PO DAILY 02/03/13 Bupropion HCl 75 mg PO BID 02/03/13 Calcium Carbonate/Vitamin D3 [Calcium 250+D Tablet] 2 each PO BID 02/03/13 Loratadine [Children's Clear-Atadine] 10 mg PO DAILY 02/03/13 Montelukast [Singulair] 10 mg PO DAILY 02/03/13 Niacin [Niaspan] 500 mg PO TID 02/03/13 Budesonide/Formoterol Fumarate [Symbicort 160-4.5 Mcg Inhaler] 2 puffs INH BID 07/30/19 Cyanocobalamin (Vitamin B-12) [Vitamin B-12] 1,000 mcg PO DAILY 07/30/19 Docusate Sodium [Dss] 250 mg PO BID 07/30/19 Sildenafil Citrate 100 mg PO PRN PRN 07/30/19 predniSONE [Deltasone] 20 mg PO DAILY 07/30/19 Acetaminophen [Tylenol] 650 mg PO DAILY 08/02/19 Albuterol 2.5 mg INH BID 08/02/19 Albuterol Sulfate [Proair Respiclick] 2 puffs IH QID PRN 08/02/19 Cholecalciferol (Vitamin D3) [Vitamin D3] 4,000 units PO DAILY 08/02/19 Fluticasone [Flonase] 2 sprays YULIA DAILY 08/02/19 Ipratropium [Atrovent] 0.5 mg INH BID 08/02/19 Loperamide HCl [Imodium A-D] 2 mg PO PRN PRN 08/02/19 Magnesium Oxide 1,260 mg PO QPM 08/02/19 Magnesium Oxide 840 mg PO DAILY 08/02/19 Tiotropium Br/Olodaterol HCl [Stiolto Respimat Inhal [place]] 2 puffs INH DAILY 08/02/19 Warfarin Sodium [Coumadin] 2 mg PO [place] 08/02/19 Warfarin Sodium [Coumadin] 3 mg PO TUTHFR 08/02/19
[2019-08-08] MEDS: QUEtiapine 25 MG TABLET PO SCH (21:12)
[2019-08-09] MEDS: SODIUM CHLORIDE FLUSH 0.9% 10 ML SYRINGE IVP SCH ×3 (02:20→17:27)
[2019-08-09 05:25] LABS: BASOPHILS % (AUTO) 0.2 %; EOSINOPHILS # (AUTO) 0.2 10^3/uL (0.0-0.7); EOSINOPHILS % (AUTO) 1.9 %; HGB - HEMOGLOBIN 10.7 g/dL (14.0-18.0); LYMPHOCYTES # (AUTO) 0.9 10^3/uL (1.5-3.5); LYMPHOCYTES % (AUTO) 8.5 %; MEAN CORPUSCULAR HGB CONC 31.2 g/dL (32.0-36.0); MEAN CORPUSCULAR VOLUME 105.9 fL (80.0-94.0); MEAN PLATELET VOLUME 9.6 fL (7.4-11.4); MONOCYTES # (AUTO) 1.2 10^3/uL (0.0-1.0); MONOCYTES % (AUTO) 11.7 %; NEUTROPHILS # (AUTO) 8.2 10^3/uL (1.5-6.6); NEUTROPHILS % (AUTO) 77.2 %; PLT - PLATELET COUNT 332 10^3/uL (130-450); RED BLOOD COUNT 3.24 10^6/uL (4.70-6.10); RED CELL DISTRIBUTION WIDTH 16.7 % (12.0-15.0); WHITE BLOOD COUNT 10.6 x10^3/uL (4.8-10.8)
[2019-08-09 05:49] LABS: CALCIUM 8.2 mg/dL (8.5-10.3); CREATININE 0.8 mg/dL (0.6-1.2); MAGNESIUM 1.6 mg/dL (1.7-2.8); PHOSPHORUS 2.4 mg/dL (2.5-4.6)
[2019-08-09] MEDS: PANTOPRAZOLE 40 MG TABLET PO SCH (06:02)
[2019-08-09] MEDS: BUDESONIDE 0.5 MG/2 ML NEB INH SCH ×2 (07:53→19:11)
[2019-08-09] MEDS: IPRATROPIUM/ALBUTEROL 3 ML NEB INH SCH ×4 (07:53→19:11)
[2019-08-09] MEDS: FORMOTEROL FUMARATE NEB 20 MCG/2 ML INH SCH ×2 (07:54→19:11)
[2019-08-09] MEDS: MAGNESIUM OXIDE 400 MG TABLET PO SCH ×2 (09:03→21:14)
[2019-08-09] MEDS: FERROUS GLUCONATE 324 MG TABLET PO SCH (09:03)
[2019-08-09] MEDS: PRENATAL VITAMIN TABLET PO SCH (09:03)
[2019-08-09] MEDS: NEUTRA-PHOS 250 MG TABLET PO SCH ×3 (09:03→17:27)
[2019-08-09] MEDS: NYSTATIN 500000 UNITS/5 ML UDC PO SCH ×4 (09:04→21:14)
[2019-08-09] MEDS: SERTRALINE 25 MG TABLET PO SCH (09:04)
[2019-08-09] MEDS: SODIUM CHLORIDE 0.9% 1,000 ML IV SCH (09:04)
[2019-08-09] MEDS: VANCOMYCIN 125 MG CAPSULE PO SCH ×4 (09:04→21:15)
[2019-08-09] MEDS ORDERED: MAGNESIUM SULFATE 2 GRAM 2 GM/50 ML BAG IV SCH (09:21)
[2019-08-09] MEDS: diphenhydrAMINE 25 MG CAPSULE PO PRN (10:08)
[2019-08-09] MEDS ORDERED: LOPERAMIDE 2 MG CAPSULE PO PRN (10:25)
[2019-08-09] MEDS: CIPROFLOXACIN 250 MG TABLET PO SCH ×2 (11:36→21:14)
[2019-08-09] MEDS: DIPHENOX/ATROPINE 2.5/0.025 MG TABLET PO PRN (11:37)
[2019-08-09] MEDS: LOPERAMIDE 2 MG CAPSULE PO SCH ×3 (13:19→21:15)
--- NOTE | 2019-08-09 18:33 | PROVIDER PROGRESS NOTE ---
Subjective - Prog Note Date Prog Note Date: 08/09/19 Prog Note Time: 10:30 - Subjective Pt reports feeling: Improved Subjective: Cresencio notes that he now has a full body rash that is very itchy since starting the antibiotic, Bactrim. He also claims that his activity tolerance is very poor as he becomes profoundly short of breath when getting up to the bathroom. His stools have been very troubling and continue with incontinence at times. Current Medications - Current Medications Current Medications: Active Medications Acetaminophen (Tylenol) 650 mg PO Q4HR PRN PRN Reason: Pain or Fever > 38C (100.4F) Last Admin: 08/05/19 17:15 Dose: 650 mg Albuterol () 2.5 mg INH RTQ4H PRN PRN Reason: Wheezing Last Admin: 08/09/19 04:43 Dose: 2.5 mg Albuterol/Ipratropium (Duoneb) 3 ml INH RTQID [facility] Last Admin: 08/10/19 07:40 Dose: 3 ml Budesonide (Pulmicort) 0.5 mg INH RTBID [facility] Last Admin: 08/10/19 07:40 Dose: 0.5 mg Ciprofloxacin (Cipro) 250 mg PO BID [facility] Last Admin: 08/10/19 08:22 Dose: 250 mg Diphenhydramine HCl (Benadryl) 25 mg PO Q4HR PRN PRN Reason: Allergy Symptoms Last Admin: 08/10/19 08:19 Dose: 25 mg Diphenoxylate HCl/Atropine (Lomotil) 2 tab PO QID PRN PRN Reason: Diarrhea Last Admin: 08/09/19 11:37 Dose: 2 tab Famotidine (Pepcid) 20 mg PO BID [facility] Last Admin: 08/10/19 08:20 Dose: 20 mg Ferrous Gluconate (Fergon) 324 mg PO DAILYWM [facility] Last Admin: 08/10/19 08:23 Dose: 324 mg Formoterol Fumarate (Perforomist) 20 mcg INH RTBID [facility] Last Admin: 08/10/19 07:40 Dose: 20 mcg Loperamide HCl (Imodium) 2 mg PO QID [facility] Stop: 08/10/19 17:01 Last Admin: 08/10/19 08:22 Dose: 2 mg Magnesium Oxide (Mag Ox) 800 mg PO DAILYWM [facility] Last Admin: 08/10/19 08:20 Dose: 800 mg Magnesium Oxide (Mag Ox) 1,200 mg PO QPM [facility] Last Admin: 08/09/19 21:14 Dose: 1,200 mg Nystatin (Mycostatin) 5 ml PO QID [facility] Last Admin: 08/10/19 08:23 Dose: 5 ml Phenol/Menthol (Chloraseptic) 2 sprays MM Q2HR PRN PRN Reason: Throat Pain Last Admin: 08/03/19 06:20 Dose: 2 sprays Multivit/Folic Acid/Iron (Trinatal Rx 1) 1 tab PO DAILYWM [facility] Last Admin: 08/10/19 08:22 Dose: 1 tab Quetiapine Fumarate (Seroquel) 25 mg PO QPM [facility] Last Admin: 08/09/19 21:15 Dose: 25 mg Sertraline HCl (Zoloft) 25 mg PO DAILY [facility] Last Admin: 08/10/19 08:23 Dose: 25 mg Sodium Phosphate (K-Phos Neutral) 250 mg PO TIDWM [facility] Last Admin: 08/10/19 08:20 Dose: 250 mg Throat Lozenges (Cepacol) 1 lozenge MM Q2HR PRN PRN Reason: Throat pain Last Admin: 08/04/19 06:33 Dose: 1 lozenge Vancomycin HCl (Vancocin) 125 mg PO QID [facility] Last Admin: 08/10/19 08:23 Dose: 125 mg Amlodipine Besylate 5 mg PO BID 02/03/13 Atenolol [Tenormin] 50 mg PO DAILY 02/03/13 Bupropion HCl 75 mg PO BID 02/03/13 Calcium Carbonate/Vitamin D3 [Calcium 250+D Tablet] 2 each PO BID 02/03/13 Loratadine [Children's Clear-Atadine] 10 mg PO DAILY 02/03/13 Montelukast [Singulair] 10 mg PO DAILY 02/03/13 Niacin [Niaspan] 500 mg PO TID 02/03/13 Budesonide/Formoterol Fumarate [Symbicort 160-4.5 Mcg Inhaler] 2 puffs INH BID 07/30/19 Cyanocobalamin (Vitamin B-12) [Vitamin B-12] 1,000 mcg PO DAILY 07/30/19 Docusate Sodium [Dss] 250 mg PO BID 07/30/19 Sildenafil Citrate 100 mg PO PRN PRN 07/30/19 predniSONE [Deltasone] 20 mg PO DAILY 07/30/19 Acetaminophen [Tylenol] 650 mg PO DAILY 08/02/19 Albuterol 2.5 mg INH BID 08/02/19 Albuterol Sulfate [Proair Respiclick] 2 puffs IH QID PRN 08/02/19 Cholecalciferol (Vitamin D3) [Vitamin D3] 4,000 units PO DAILY 08/02/19 Fluticasone [Flonase] 2 sprays YULIA DAILY 08/02/19 Ipratropium [Atrovent] 0.5 mg INH BID 08/02/19 Loperamide HCl [Imodium A-D] 2 mg PO PRN PRN 08/02/19 Magnesium Oxide 1,260 mg PO QPM 08/02/19 Magnesium Oxide 840 mg PO DAILY 08/02/19 Tiotropium Br/Olodaterol HCl [Stiolto Respimat Inhal [place]] 2 puffs INH DAILY 08/02/19 Warfarin Sodium [Coumadin] 2 mg PO SUM[place]ESA 08/02/19 Warfarin Sodium [Coumadin] 3 mg PO TUTHFR 08/02/19 Objective - Vital Signs/Intake & Output Reviewed Vital Signs: Yes Vital Signs: Vital Signs x48h Temp Pulse Pulse Resp BP Pulse Ox 08/09/19 16:29 98 20 08/09/19 15:24 36.9 C 95 18 119/71 97 08/09/19 11:49 98 16 Intake & Output: Intake & Output 08/06/19 08/07/19 08/08/19 08/09/19 23:59 23:59 23:59 23:59 Intake Total 3190.329 3603.75 2962.5 1732 Output Total 1550 1500 1825 400 Balance 4355.891 9622.75 1137.5 1332 - Objective General Appearance: positive: Alert, Moderate distress, Anxious Eyes Bilateral: positive: No lid inflammation Eyes: OU Conjunctivae pale ENT: positive: No signs of dehydration, Pharyngeal erythema, Dry mucous membranes Neck: positive: Trachea midline Respiratory: positive: Chest non-tender, No respiratory distress, Wheezes, Rhonchi Cardiovascular: positive: Regular rate & rhythm, No gallop, JVD present, Systolic murmur, Decreased pulse(s) Peripheral Pulses: 1+ Radial (R), 1+ Radial (L) Abdomen: positive: Non-tender, Nml bowel sounds, Hepatomegaly, Other (rounded, soft) Back: positive: Other (raised rash (drug related) covering all of his back side, extending to his groin/buttocks) Skin: positive: Warm, Dry, Pallor, Skin rash (new this morning, itches) Extremities: positive: Non-tender, Pedal edema, Joint swelling, Other (pitting edema to BLEs, abdominal edema) Neurologic/Psychiatric: positive: Oriented x3, CN's nml (2-12), Motor nml, Weakness, Sensory loss, Depressed mood/affect Reflexes: Bicep (R): 3+, Bicep (L): 3+ - Lab Results Fish Bones: 08/10/19 04:15 08/10/19 04:15 Other Labs: Lab Results x24hrs 08/09/19 08/09/19 Range/Units 04:35 04:35 WBC 10.6 (4.8-10.8) x10^3/uL RBC 3.24 L (4.70-6.10) 10^6/uL Hgb 10.7 L (14.0-18.0) g/dL Hct 34.3 L (42.0-52.0) % MCV 105.9 H (80.0-94.0) fL MCH 33.0 H (27.0-31.0) pg MCHC 31.2 L (32.0-36.0) g/dL RDW 16.7 H (12.0-15.0) % Plt Count 332 (130-450) 10^3/uL MPV 9.6 (7.4-11.4) fL Neut # (Auto) 8.2 H (1.5-6.6) 10^3/uL Lymph # (Auto) 0.9 L (1.5-3.5) 10^3/uL [place] # (Auto) 1.2 H (0.0-1.0) 10^3/uL Eos # (Auto) 0.2 (0.0-0.7) 10^3/uL Baso # (Auto) 0.0 (0.0-0.1) 10^3/uL Absolute Nucleated RBC 0.00 x10^3/uL Nucleated RBC % 0.0 /100WBC Sodium 141 (135-145) mmol/L Potassium 3.9 (3.5-5.0) mmol/L Chloride 109 (101-111) mmol/L Carbon Dioxide 25 (21-32) mmol/L Anion Gap 7.0 (6-13) BUN 5 L (6-20) mg/dL Creatinine 0.8 (0.6-1.2) mg/dL Estimated GFR (MDRD) 95 (>89) Glucose 85 (70-100) mg/dL Calcium 8.2 L (8.5-10.3) mg/dL Phosphorus 2.4 L (2.5-4.6) mg/dL Magnesium 1.6 L (1.7-2.8) mg/dL ABX Reporting Has patient been on IV antibiotics over the past 48 hours?: No Sepsis Event Note (H) - Evaluation Current Stage of Sepsis: Ruled out Assessment/Plan - Problem List (1) C. difficile diarrhea Impression: -C diff + on 08/06 -Continues on PO Vancomycin, tolerating -Stopped IVF -Plan to continue oral vanco at home past the time of oral Cipro for UTI (extended treatment to penetrate the prostate) -Monitor for improvement Chronic diarrhea -Admitted after black diarrhea for approximately 10 days -Ongoing diarrhea, now + for c diff -Etiologies include infectious, exacerbation of previous bowel resection, or related to alcohol malabsorption or gastritis -Continue H2 jomar oral BID (stopped PPI) -Scheduled Imodium, PRN Lomotil, adding Octreotide SQ injections this evening -Recommend outpatient colonoscopy/endoscopy after discharge to look for source o f bleeding UTI (urinary tract infection) -On 08/08 switched antibiotics to Bactrim, torso rash this AM (itchy) -Bactrim now on allergy list -UA culture final shows: Ecoli and Klebsiella Oxytoca -Started on oral Cipro BID to be continued ~ 4 weeks for prostate penetration Rash -Full torso raised rash, pruritic, spreading to groin -Newest culprit is adding Bactrim, now on allergy list -Benadryl resolved itching, nearly gone this evening -Continue to monitor Chronic obstructive pulmonary disease exacerbation -Continue DuoNebs,schedule, albuterol as needed, budesonide, Perforomist. 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 -Oral coumadin since that time, none on this admission -Consult outpatient hematology to review patient's history PTSD (post-traumatic stress disorder) -Patient has a history of PTSD related to his service. [facility] -Continue buproprion. -Refer to psychiatry for current treatment Severe protein-calorie malnutrition -Patient has a poor appetite, now improved -Per patient and his sister, he often takes less than 50% of recommended intake (and this has been going on for > 3 months) -Complicated by +C diff -Significantly reduced functional capacity, claiming that he can barely walk across the room without becoming short of breath -Unclear if recent weight loss -Nutrition is following Alcohol abuse -The patient admitted to his alcohol abuse, notes to drink 3 full glasses of [place] Nora per day -Social work has been consulted to provide information about programs to quit and counseling
[2019-08-09] MEDS: FAMOTIDINE 20 MG TABLET PO SCH (21:14)
[2019-08-09] MEDS: QUEtiapine 25 MG TABLET PO SCH (21:15)
[2019-08-10 05:00] LABS: BASOPHILS % (AUTO) 0.1 %; EOSINOPHILS # (AUTO) 0.2 10^3/uL (0.0-0.7); HGB - HEMOGLOBIN 9.4 g/dL (14.0-18.0); LYMPHOCYTES # (AUTO) 0.7 10^3/uL (1.5-3.5); LYMPHOCYTES % (AUTO) 7.3 %; MEAN CORPUSCULAR HEMOGLOBIN 33.1 pg (27.0-31.0); MEAN CORPUSCULAR HGB CONC 31.4 g/dL (32.0-36.0); MEAN CORPUSCULAR VOLUME 105.3 fL (80.0-94.0); MEAN PLATELET VOLUME 9.6 fL (7.4-11.4); MONOCYTES # (AUTO) 1.1 10^3/uL (0.0-1.0); MONOCYTES % (AUTO) 11.9 %; NEUTROPHILS % (AUTO) 78.1 %; PLT - PLATELET COUNT 287 10^3/uL (130-450); RED BLOOD COUNT 2.84 10^6/uL (4.70-6.10); RED CELL DISTRIBUTION WIDTH 16.5 % (12.0-15.0); WHITE BLOOD COUNT 8.9 x10^3/uL (4.8-10.8)
[2019-08-10 05:21] LABS: CREATININE 0.8 mg/dL (0.6-1.2)
[2019-08-10] MEDS: FORMOTEROL FUMARATE NEB 20 MCG/2 ML INH SCH ×2 (07:40→19:32)
[2019-08-10] MEDS: IPRATROPIUM/ALBUTEROL 3 ML NEB INH SCH ×4 (07:40→19:32)
[2019-08-10] MEDS: BUDESONIDE 0.5 MG/2 ML NEB INH SCH ×2 (07:40→19:32)
[2019-08-10] MEDS: diphenhydrAMINE 25 MG CAPSULE PO PRN ×2 (08:19→21:46)
[2019-08-10] MEDS: FAMOTIDINE 20 MG TABLET PO SCH ×2 (08:20→21:43)
[2019-08-10] MEDS: NEUTRA-PHOS 250 MG TABLET PO SCH ×2 (08:20→11:36)
[2019-08-10] MEDS: MAGNESIUM OXIDE 400 MG TABLET PO SCH ×2 (08:20→21:44)
[2019-08-10] MEDS: LOPERAMIDE 2 MG CAPSULE PO SCH ×3 (08:22→17:38)
[2019-08-10] MEDS: PRENATAL VITAMIN TABLET PO SCH (08:22)
[2019-08-10] MEDS: CIPROFLOXACIN 250 MG TABLET PO SCH ×2 (08:22→21:44)
[2019-08-10] MEDS: VANCOMYCIN 125 MG CAPSULE PO SCH ×4 (08:23→21:45)
[2019-08-10] MEDS: FERROUS GLUCONATE 324 MG TABLET PO SCH (08:23)
[2019-08-10] MEDS: NYSTATIN 500000 UNITS/5 ML UDC PO SCH (08:23)
[2019-08-10] MEDS: SERTRALINE 25 MG TABLET PO SCH (08:23)
--- NOTE | 2019-08-10 09:13 | PROVIDER PROGRESS NOTE ---
Subjective - Prog Note Date Prog Note Date: 08/10/19 Prog Note Time: 09:11 - Subjective Pt reports feeling: Improved Subjective: Cresencio admits to a resolution of his previous thrush symptoms and his rash on his back, chest and groin is no longer itchy. He states that his energy level has been terrible and he becomes short of breath walking into the bathroom. His sister visited today, and was given a medical update. Current Medications - Current Medications Current Medications: Active Medications Acetaminophen (Tylenol) 650 mg PO Q4HR PRN PRN Reason: Pain or Fever > 38C (100.4F) Last Admin: 08/05/19 17:15 Dose: 650 mg Albuterol 2.5 mg INH RTQ4H PRN PRN Reason: Wheezing Last Admin: 08/09/19 04:43 Dose: 2.5 mg Albuterol/Ipratropium (Duoneb) 3 ml INH RTQID [facility] Last Admin: 08/10/19 07:40 Dose: 3 ml Budesonide (Pulmicort) 0.5 mg INH RTBID [facility] Last Admin: 08/10/19 07:40 Dose: 0.5 mg Calcium Carbonate/Glycine (Oysco-500) 500 mg PO DAILY [facility] Cholecalciferol (Vitamin D3) 4,000 unit PO DAILY [facility] Ciprofloxacin (Cipro) 250 mg PO BID [facility] Last Admin: 08/10/19 08:22 Dose: 250 mg Diphenhydramine HCl (Benadryl) 25 mg PO Q4HR PRN PRN Reason: Allergy Symptoms Last Admin: 08/10/19 08:19 Dose: 25 mg Diphenoxylate HCl/Atropine (Lomotil) 2 tab PO QID PRN PRN Reason: Diarrhea Last Admin: 08/09/19 11:37 Dose: 2 tab Famotidine (Pepcid) 20 mg PO BID [facility] Last Admin: 08/10/19 08:20 Dose: 20 mg Ferrous Gluconate (Fergon) 324 mg PO DAILYWM [facility] Last Admin: 08/10/19 08:23 Dose: 324 mg Fluticasone Propionate (Flonase) 2 sprays YULIA DAILY [facility] Formoterol Fumarate (Perforomist) 20 mcg INH RTBID [facility] Last Admin: 08/10/19 07:40 Dose: 20 mcg Loperamide HCl (Imodium) 2 mg PO QID [facility] Stop: 08/10/19 17:01 Last Admin: 08/10/19 08:22 Dose: 2 mg Loratadine (Claritin) 10 mg PO DAILY [facility] Magnesium Oxide (Mag Ox) 800 mg PO DAILYWM [facility] Last Admin: 08/10/19 08:20 Dose: 800 mg Magnesium Oxide (Mag Ox) 1,200 mg PO QPM [facility] Last Admin: 08/09/19 21:14 Dose: 1,200 mg Montelukast Sodium (Singulair) 10 mg PO QPM [facility] Niacin (Niaspan) 500 mg PO TID [facility] Phenol/Menthol (Chloraseptic) 2 sprays MM Q2HR PRN PRN Reason: Throat Pain Last Admin: 08/03/19 06:20 Dose: 2 sprays Prednisone 5mg PO daily Multivit/Folic Acid/Iron (Trinatal Rx 1) 1 tab PO DAILYWM [facility] Last Admin: 08/10/19 08:22 Dose: 1 tab Quetiapine Fumarate (Seroquel) 25 mg PO QPM [facility] Last Admin: 08/09/19 21:15 Dose: 25 mg Sertraline HCl (Zoloft) 25 mg PO DAILY [facility] Last Admin: 08/10/19 08:23 Dose: 25 mg Sodium Phosphate (K-Phos Neutral) 250 mg PO TIDWM [facility] Last Admin: 08/10/19 08:20 Dose: 250 mg Spironolactone (Aldactone) 25 mg PO DAILY [facility] Throat Lozenges (Cepacol) 1 lozenge MM Q2HR PRN PRN Reason: Throat pain Last Admin: 08/04/19 06:33 Dose: 1 lozenge Vancomycin HCl (Vancocin) 125 mg PO QID [facility] Last Admin: 08/10/19 08:23 Dose: 125 mg Amlodipine Besylate 5 mg PO BID 02/03/13 Atenolol [Tenormin] 50 mg PO DAILY 02/03/13 Bupropion HCl 75 mg PO BID 02/03/13 Calcium Carbonate/Vitamin D3 [Calcium 250+D Tablet] 2 each PO BID 02/03/13 Loratadine [Children's Clear-Atadine] 10 mg PO DAILY 02/03/13 Montelukast [Singulair] 10 mg PO DAILY 02/03/13 Niacin [Niaspan] 500 mg PO TID 02/03/13 Budesonide/Formoterol Fumarate [Symbicort 160-4.5 Mcg Inhaler] 2 puffs INH BID 07/30/19 Cyanocobalamin (Vitamin B-12) [Vitamin B-12] 1,000 mcg PO DAILY 07/30/19 Docusate Sodium [Dss] 250 mg PO BID 07/30/19 Sildenafil Citrate 100 mg PO PRN PRN 07/30/19 predniSONE [Deltasone] 20 mg PO DAILY 07/30/19 Acetaminophen [Tylenol] 650 mg PO DAILY 08/02/19 Albuterol 2.5 mg INH BID 08/02/19 Albuterol Sulfate [Proair Respiclick] 2 puffs IH QID PRN 08/02/19 Cholecalciferol (Vitamin D3) [Vitamin D3] 4,000 units PO DAILY 08/02/19 Fluticasone [Flonase] 2 sprays YULIA DAILY 08/02/19 Ipratropium [Atrovent] 0.5 mg INH BID 08/02/19 Loperamide HCl [Imodium A-D] 2 mg PO PRN PRN 08/02/19 Magnesium Oxide 1,260 mg PO QPM 08/02/19 Magnesium Oxide 840 mg PO DAILY 08/02/19 Tiotropium Br/Olodaterol HCl [Stiolto Respimat Inhal [place]] 2 puffs INH DAILY 08/02/19 Warfarin Sodium [Coumadin] 2 mg PO [place] 08/02/19 Warfarin Sodium [Coumadin] 3 mg PO TUTHFR 08/02/19 Objective - Vital Signs/Intake & Output Reviewed Vital Signs: Yes Vital Signs: Vital Signs x48h Temp Pulse Pulse Resp BP Pulse Ox 08/10/19 08:13 36.6 C 95 19 124/74 96 08/10/19 07:40 89 20 Intake & Output: Intake & Output 08/07/19 08/08/19 08/09/19 08/10/19 23:59 23:59 23:59 23:59 Intake Total 3603.75 2962.5 1932 Output Total 1500 1825 720 225 Balance 2103.75 1137.5 1212 -225 - Objective General Appearance: positive: Alert, Mild distress, Anxious Eyes Bilateral: positive: PERRL, No lid inflammation Eyes: OU Conjunctivae pale ENT: positive: Pharyngeal erythema, Dry mucous membranes, Other (thrush has resolved) Neck: positive: Trachea midline Respiratory: positive: Chest non-tender, No respiratory distress, Wheezes, Rhonchi Cardiovascular: positive: Regular rate & rhythm, Systolic murmur, Decreased pulse(s) Peripheral Pulses: 1+ Radial (R), 1+ Radial (L) Back: positive: Other (rash nearly resolved) Skin: positive: Warm, Dry, Pallor, Skin rash (torso anterior and posterior, into groin-nearly resolved, itching is resolved) Extremities: positive: Non-tender, Pedal edema (pitting edema, much improved today since applying ANTONIA hose to BLEs), Joint swelling Neurologic/Psychiatric: positive: Oriented x3, CN's nml (2-12), Motor nml, Weakness, Sensory loss, Depressed mood/affect, Other (baseline hopelessness, improved) Reflexes: Bicep (R): 3+, Bicep (L): 3+ - Lab Results Fish Bones: 08/10/19 04:15 08/10/19 04:15 Other Labs: Lab Results x24hrs 08/10/19 08/10/19 Range/Units 04:15 04:15 WBC 8.9 (4.8-10.8) x10^3/uL RBC 2.84 L (4.70-6.10) 10^6/uL Hgb 9.4 L (14.0-18.0) g/dL Hct 29.9 L (42.0-52.0) % MCV 105.3 H (80.0-94.0) fL MCH 33.1 H (27.0-31.0) pg MCHC 31.4 L (32.0-36.0) g/dL RDW 16.5 H (12.0-15.0) % Plt Count 287 (130-450) 10^3/uL MPV 9.6 (7.4-11.4) fL Neut # (Auto) 7.0 H (1.5-6.6) 10^3/uL Lymph # (Auto) 0.7 L (1.5-3.5) 10^3/uL [place] # (Auto) 1.1 H (0.0-1.0) 10^3/uL Eos # (Auto) 0.2 (0.0-0.7) 10^3/uL Baso # (Auto) 0.0 (0.0-0.1) 10^3/uL Absolute Nucleated RBC 0.00 x10^3/uL Nucleated RBC % 0.0 /100WBC Sodium 140 (135-145) mmol/L Potassium 4.3 (3.5-5.0) mmol/L Chloride 112 H (101-111) mmol/L Carbon Dioxide 25 (21-32) mmol/L Anion Gap 3.0 L (6-13) BUN 6 (6-20) mg/dL Creatinine 0.8 (0.6-1.2) mg/dL Estimated GFR (MDRD) 95 (>89) Glucose 88 (70-100) mg/dL Calcium 8.0 L (8.5-10.3) mg/dL ABX Reporting Has patient been on IV antibiotics over the past 48 hours?: No Sepsis Event Note (H) - Evaluation Current Stage of Sepsis: Ruled out Assessment/Plan - Problem List (1) C. difficile diarrhea Impression: -C diff + on 08/06 -Continues on PO Vancomycin, tolerating -Stopped IVF -Plan to continue oral vanco at home past the time of oral Cipro for UTI (extended treatment to penetrate the prostate) -Monitor for improvement Chronic diarrhea -Admitted after black diarrhea for approximately 10 days -Ongoing diarrhea, now + for c diff -Less frequent, semi-formed, but still with incontinent episodes -Etiologies include infectious, exacerbation of previous bowel resection, or related to alcohol malabsorption or gastritis -Continue H2 jomar oral BID (stopped PPI) -Scheduled Imodium, PRN Lomotil, added Octreotide SQ injections today -Recommend outpatient colonoscopy/endoscopy after discharge to look for source of bleeding UTI (urinary tract infection) -On 08/08 switched antibiotics to Bactrim, torso rash this AM (itchy) -Bactrim now on allergy list -UA culture final shows: Ecoli and Klebsiella Oxytoca -Started on oral Cipro BID to be continued ~ 4 weeks for prostate penetration Rash -Full torso raised rash, pruritus, spreading to groin- nearly resolved today -Newest culprit is adding Bactrim, now on allergy list -Benadryl resolved itching, still on PRN list -Continue to monitor Pulmonary hypertension -Echo from this admission shows elevated pulmonary pressures of 40 mmHg -Starting Spironolactone this AM -1-view chest x-ray shows a new LL pneumonia, but no other qualifiers for pneumonia (WBC, fever, more sputum) Chronic obstructive pulmonary disease exacerbation -Continue DuoNebs,schedule, albuterol as needed, budesonide, Perforomist -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 -Continue iron supplement -Continue routine labs PTSD (post-traumatic stress disorder) -Patient has a history of PTSD related to his service, [facility] -Continue newly prescribed Zoloft in place of home bupropion -Refer to psychiatry upon discharge Severe protein-calorie malnutrition -Patient has a poor appetite, now improved -Per patient and his sister, he often takes less than 50% of recommended intake (and this has been going on for > 3 months) -Complicated by +C diff -Significantly reduced functional capacity, claiming that he can barely walk across the room without becoming short of breath -Unclear if recent weight loss -Nutrition is following Alcohol abuse -The patient admitted to his alcohol abuse, notes to drink 3 full glasses of [place] Nora per day -Social work has been consulted to provide information about programs to quit and counseling Supratherapeutic INR-RESOLVED -Vitamin K in the emergency room -History of DVT (deep vein thrombosis) & pulmonary emboli -Patient reports a provoked DVT seven years ago after a road trip with his brother. -Oral coumadin since that time, none on this admission -Consult outpatient hematology to review patient's history GI bleeding-RESOLVED -Colonoscopy and endoscopy to identify source of GI bleed in the outpatient setting -Previous hx of polyps and he has not followed up -Blood thinners are now contraindicated given this episode of GI bleed-Coumadin will be discontinued upon discharge
[2019-08-10] MEDS ORDERED: BUPROPION HCL 75 MG PO SCH (09:15)
[2019-08-10] MEDS: FLUTICASONE NASAL SPRAY NAS SCH (11:35)
[2019-08-10] MEDS: CHOLECALCIFEROL 1,000 UNIT TABLET PO SCH (11:35)
[2019-08-10] MEDS: predniSONE 5 MG TABLET PO SCH (11:35)
[2019-08-10] MEDS: CALCIUM CARB (OYSTER SHELL) 500 MG TABLET PO SCH (11:36)
[2019-08-10] MEDS: SPIRONOLACTONE 25 MG TABLET PO SCH (11:36)
[2019-08-10] MEDS: OCTREOTIDE 100 MCG/ML VIAL SUBQ SCH ×3 (11:37→21:43)
[2019-08-10] MEDS: NIACIN ER 500 MG TABLET PO SCH ×3 (11:37→21:44)
--- NOTE | 2019-08-10 11:45 | XRAY Report ---
Reason: cough, SOB Procedure Date: 08/10/2019 Accession Number: [id number] / [id number] Procedure: XR - Chest 1 View X-Ray CPT Code: 25494 Final Report FULL RESULT: EXAM: CHEST RADIOGRAPHY EXAM DATE: 08/10/2019 09:28 AM. CLINICAL HISTORY: Shortness of breath. COMPARISON: CHEST 1 VIEW 08/05/2019 9:15 AM. TECHNIQUE: 1 view. FINDINGS: Lungs/Pleura: No patchy left basilar airspace disease is seen suggesting pneumonia. No pneumothorax or vascular congestion. Mediastinum: Within exam limitations, the cardiomediastinal contour is normal. Other: None. IMPRESSION: Left lower lobe pneumonia. RADIA
[2019-08-10] MEDS ORDERED: CYANOCOBALAMIN 1,000 MCG/ML VIAL IM SCH (13:00)
[2019-08-10] MEDS: TAMSULOSIN 0.4 MG CAPSULE PO SCH (17:38)
[2019-08-10] MEDS: DIPHENOX/ATROPINE 2.5/0.025 MG TABLET PO PRN (17:38)
[2019-08-10] MEDS ORDERED: MONTELUKAST 10 MG TABLET PO SCH (21:00)
[2019-08-10] MEDS: QUEtiapine 25 MG TABLET PO SCH (21:44)
[2019-08-11 05:56] LABS: BASOPHILS % (AUTO) 0.1 %; EOSINOPHILS # (AUTO) 0.3 10^3/uL (0.0-0.7); EOSINOPHILS % (AUTO) 3.4 %; HGB - HEMOGLOBIN 9.4 g/dL (14.0-18.0); LYMPHOCYTES # (AUTO) 0.6 10^3/uL (1.5-3.5); LYMPHOCYTES % (AUTO) 8.7 %; MEAN CORPUSCULAR HEMOGLOBIN 31.9 pg (27.0-31.0); MEAN CORPUSCULAR VOLUME 102.7 fL (80.0-94.0); MEAN PLATELET VOLUME 9.4 fL (7.4-11.4); MONOCYTES # (AUTO) 0.7 10^3/uL (0.0-1.0); MONOCYTES % (AUTO) 9.5 %; NEUTROPHILS # (AUTO) 5.7 10^3/uL (1.5-6.6); NEUTROPHILS % (AUTO) 77.8 %; PLT - PLATELET COUNT 279 10^3/uL (130-450); RED BLOOD COUNT 2.95 10^6/uL (4.70-6.10); WHITE BLOOD COUNT 7.3 x10^3/uL (4.8-10.8)
[2019-08-11 06:06] LABS: PT - PROTHROMBIN TIME 11.1 secs (9.9-12.6)
[2019-08-11] MEDS: NIACIN ER 500 MG TABLET PO SCH ×2 (06:14→13:13)
[2019-08-11] MEDS: OCTREOTIDE 100 MCG/ML VIAL SUBQ SCH ×2 (06:15→13:12)
[2019-08-11 06:18] LABS: ALBUMIN 1.9 g/dL (3.2-5.5); ALBUMIN/GLOBULIN RATIO 0.8 (1.0-2.2); BILIRUBIN,TOTAL 0.4 mg/dL (0.2-1.0); CALCIUM 7.8 mg/dL (8.5-10.3); CREATININE 0.8 mg/dL (0.6-1.2); PHOSPHORUS 2.4 mg/dL (2.5-4.6); TOTAL PROTEIN 4.2 g/dL (6.7-8.2)
[2019-08-11] MEDS: FORMOTEROL FUMARATE NEB 20 MCG/2 ML INH SCH (07:24)
[2019-08-11] MEDS: IPRATROPIUM/ALBUTEROL 3 ML NEB INH SCH ×2 (07:24→13:29)
[2019-08-11] MEDS: BUDESONIDE 0.5 MG/2 ML NEB INH SCH (07:24)
[2019-08-11] MEDS: CIPROFLOXACIN 250 MG TABLET PO SCH (08:34)
[2019-08-11] MEDS: CALCIUM CARB (OYSTER SHELL) 500 MG TABLET PO SCH (08:35)
[2019-08-11] MEDS: VANCOMYCIN 125 MG CAPSULE PO SCH ×2 (08:35→13:12)
[2019-08-11] MEDS: diphenhydrAMINE 25 MG CAPSULE PO PRN (08:35)
[2019-08-11] MEDS: SERTRALINE 25 MG TABLET PO SCH (08:35)
[2019-08-11] MEDS: predniSONE 5 MG TABLET PO SCH (08:35)
[2019-08-11] MEDS: CHOLECALCIFEROL 1,000 UNIT TABLET PO SCH (08:35)
[2019-08-11] MEDS: TAMSULOSIN 0.4 MG CAPSULE PO SCH (08:35)
[2019-08-11] MEDS: PRENATAL VITAMIN TABLET PO SCH (08:35)
[2019-08-11] MEDS: FERROUS GLUCONATE 324 MG TABLET PO SCH (08:35)
[2019-08-11] MEDS: SPIRONOLACTONE 25 MG TABLET PO SCH (08:35)
[2019-08-11] MEDS: FAMOTIDINE 20 MG TABLET PO SCH (08:35)
[2019-08-11] MEDS: MAGNESIUM OXIDE 400 MG TABLET PO SCH (08:36)
[2019-08-11] MEDS: FLUTICASONE NASAL SPRAY NAS SCH (08:36)
[2019-08-11] MEDS ORDERED: LORATADINE 10 MG TABLET PO SCH (09:00)
--- NOTE | 2019-08-11 11:39 | Discharge Plan ---
Discharge Plan Problem Reviewed?: Yes Disposition: Home, Self Care Condition: Good Prescriptions: diphenhydrAMINE [Benadryl] 25 mg PO Q4HR PRN #30 capsule PRN Reason: Allergy Symptoms atenoloL [Atenolol] 25 mg PO DAILY #30 tablet Ciprofloxacin [Cipro] 250 mg PO Q12H #56 tablet Diphenoxylate/Atropine [Lomotil] 1 each PO QID #60 tablet QUEtiapine [SEROquel] 25 mg PO QPM #30 tablet Sertraline [Zoloft] 25 mg PO DAILY #30 tablet Spironolactone [Aldactone] 12.5 mg PO BID #30 tablet Tamsulosin [Flomax] 0.4 mg PO DAILY #30 capsule Vancomycin [Vancocin] 125 mg PO QID #36 capsule Vancomycin [Vancocin] 125 mg PO BID #38 capsule Diet: Regular Activity Restrictions: Activity as Tolerated Assistance Devices: Walker Weight Bearing: Full Weight Instruction Topics: Ciprofloxacin tablets, Tamsulosin capsules Health Concerns: Clostridium difficile bowel infection COPD Oxygen dependence UTI (involving the prostate) Rash Plan of Treatment: Continue the Cipro for the next 28 days at home to cure your bladder infection (twice a day) Take a Probiotic for this month and next month Take the vancomycin for the next 9 days four times daily, then cut back to only twice per day until you finish your Cipro antibiotic (UTI) To prevent further bladder infection, you were started on a medication called Flomax which helps with urinary flow so that you can completely empty your bladder Continue the medication to treat your heart condition called spironolactone, which helps with leg and abdominal swelling while also preserving your heart function Continue the antidepressant at home that was started here and STOP the Wellbutrin You will no longer be on blood thinners because your risk of bleeding exceeds the risk of another blood clot Allow visits from Palliative care, Tere Chen who plans to continue to see you at home See your primary care provider within one week as a follow up to this hospital stay Care Goals: Prevent hospital stays Remain independent at home Assessment: You were admitted to the hospital for GI bleeding, and found to have a very high INR of 10, so the Coumdin was stopped. A urine sample showed a complex urinary tract infection involving your prostate and you were treated with IV antibiotics that were changed to Bactrim. A rash formed soon after starting this medications, so this was stopped and you were given Cipro, which will continued for an extended course at home (28 days). You have baseline diarrhea, but this continued to be troublesome during your stay, so a sample was sent to the lab. You were found to have a bowel infection called C diff, and started on vancomycin. Your hospital stay was more complicated and you were facing many difficulties, so a Palliative care consult was made to help guide you to the next phase of your life. You are being discharged home and will need to stop by the pharmacy first which is being arranged by our social work team. Follow-Up Care: [facility] No Smoking: If you smoke, Please STOP! Call for help.
--- NOTE | 2019-08-11 12:04 | DISCHARGE SUMMARY ---
"Discharge Summary Admit Date: 07/30/19 Discharge Date: 08/11/19 Discharging Provider: ABHISHEK Potter Primary Care Provider: Erica Gaitan Code Status: Do Not Attempt Resuscitation Condition at Discharge: Good Discharge Disposition: Home, Self Care - DIAGNOSES Admission Diagnoses: Acute anemia Diarrhea Macrocytic anemia Supratherapeutic INR Leukocytosis Severe protein-calorie malnutrition Alcohol abuse Adult failure to thrive History of DVT (deep vein thrombosis) PTSD (post-traumatic stress disorder) Orthopnea Action tremor Moderate COPD (chronic obstructive pulmonary disease) Discharge Diagnoses with Status of Each Condition: C. difficile diarrhea-New on this admission, continue oral vanco for 9 more days, then reduce dosing to prophylaxis dosing while on cipro Chronic diarrhea-Caused by prior bowel resection, now complicated by c diff, prescribed imodium and lomotil UTI (urinary tract infection)-New on this admit, exacerbated by BPH, continue extended treatment of cipro BID for 28 days total, started on Flomax Rash-New since patient was given Bactrim (now on allergy list), improved with benadryl, continued on steroids, singular and loratidine from home Pulmonary hypertension-Echo shows elevated pulmonary pressures, baseline use of oxygen, started on spironolactone with split dosing, will need a sleep study outpatient Moderate COPD (chronic obstructive pulmonary disease)-Chronic, stable, discharged on home oxygen Macrocytic anemia-Chronic, B12 injection given here, repeat monthly, continued on iron supplement PTSD (post-traumatic stress disorder)-Chronic, started on Zoloft, patient was to stop his home wellbutrin Severe protein-calorie malnutrition-Chronic, patient encouraged to stop drinking Alcohol abuse-Chronic, patient encouraged to stop drinking, but refused to allow his sister throw away current alcohol in the home Supratherapeutic INR-Resolved GI bleeding-Stable, will need an outpatient colonoscopy - HPI History of Present Illness: HPI per Dr. Mtz: Mr. 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 Patient had an COPD exacerbation 2 months ago, saw his PCP and was given oral steroids. On the steroids the patient felt that his breathing improved. He ran out of steroids and was given a refill about 10 days ago. Four days ago, the patient noticed bilateral lower extremity edema with constant weeping, a sore throat and lymph node edema in his neck which he thought was related to the steroids so he stopped taking them. The patient and his sister report a steady functional decline with last known normal eight months ago. At that time he could walk 1 block, perform his ADLs and grocery shop for himself. The patient was so weak and unable to care for himself, and decided to call EMS at 4 am this morning (07/30/2019). - CONSULTS | PROCEDURES Consultations: Palliative care- Tere Chen who will follow outpatient - HOSPITAL COURSE Hospital Course: The patient was admitted to the hospital for GI bleeding, and found to have a very high INR of 10, so Coumdin was stopped. A urine sample showed a complex urinary tract infection involving the prostate and the patient was treated with IV antibiotics that were changed to Bactrim. A rash formed soon after starting this medications, so this was stopped and he was given Cipro, which will continued for an extended course at home (28 days). The patient has baseline diarrhea, but this continued to be troublesome during the hospital stay, so a sample was sent to the lab. Results showed a bowel infection called C diff, and started on vancomycin. The hospital stay was more complicated and the patient was facing many difficulties, so a Palliative care consult was made to help guide the patient to the next phase of his life. The patient was evaluated by physical therapy, and is medically stable, so discharged home with home oxygen. Social work arranged a ride home with oxygen, and the shag truck driver to order picker prescriptions at the pharmacy prior to driving the patient home. - ALLERGIES Allergies/Adverse Reactions: Allergies Allergy/AdvReac Type Severity Reaction Status Date / Time sulfamethoxazole Allergy Hives Verified 08/09/19 10:30 [From Bactrim] trimethoprim [From Bactrim] Allergy Hives Verified 08/09/19 10:30 warfarin AdvReac Severe GI BLEED Verified 08/10/19 13:13 - MEDICATIONS Home Medications: Ambulatory Orders Medication Instructions Recorded Confirmed Calcium Carbonate/Vitamin D3 2 each PO BID 02/03/13 07/30/19 [Calcium 250+D Tablet] Loratadine 10 mg PO DAILY 02/03/13 07/30/19 Montelukast [Singulair] 10 mg PO DAILY 02/03/13 07/30/19 Niacin [Niaspan] 500 mg PO TID 02/03/13 07/30/19 Budesonide/Formoterol Fumarate 2 puffs INH BID 07/30/19 07/30/19 [Symbicort 160-4.5 Mcg Inhaler] Cyanocobalamin (Vitamin B-12) 1,000 mcg PO DAILY 07/30/19 07/30/19 [Vitamin B-12] Sildenafil Citrate 100 mg PO PRN PRN 07/30/19 07/30/19 predniSONE [Deltasone] 20 mg PO DAILY 07/30/19 07/30/19 Acetaminophen [Tylenol] 650 mg PO DAILY 08/02/19 08/02/19 Albuterol 2.5 mg INH BID 08/02/19 08/02/19 Albuterol Sulfate [Proair 2 puffs IH QID PRN 08/02/19 08/02/19 Respiclick] Cholecalciferol (Vitamin D3) 4,000 units PO DAILY 08/02/19 08/02/19 [Vitamin D3] Fluticasone [Flonase] 2 sprays YULIA DAILY 08/02/19 08/02/19 Ipratropium [Atrovent] 0.5 mg INH BID 08/02/19 08/02/19 Loperamide HCl [Imodium A-D] 2 mg PO PRN PRN 08/02/19 08/02/19 Magnesium Oxide 1,260 mg PO QPM 08/02/19 08/02/19 Magnesium Oxide 840 mg PO DAILY 08/02/19 08/02/19 Tiotropium Br/Olodaterol HCl 2 puffs INH DAILY 08/02/19 08/02/19 [Stiolto Respimat Inhal [place]] Ciprofloxacin [Cipro] 250 mg PO Q12H #56 tablet 08/11/19 Diphenoxylate/Atropine [Lomotil] 1 each PO QID #60 tablet 08/11/19 QUEtiapine [SEROquel] 25 mg PO QPM #30 tablet 08/11/19 Sertraline [Zoloft] 25 mg PO DAILY #30 tablet 08/11/19 Spironolactone [Aldactone] 12.5 mg PO BID #30 tablet 08/11/19 Tamsulosin [Flomax] 0.4 mg PO DAILY #30 capsule 08/11/19 Vancomycin [Vancocin] 125 mg PO BID #38 capsule 08/11/19 Vancomycin [Vancocin] 125 mg PO QID #36 capsule 08/11/19 atenoloL [Atenolol] 25 mg PO DAILY #30 tablet 08/11/19 diphenhydrAMINE [Benadryl] 25 mg PO Q4HR PRN #30 capsule 08/11/19 - PHYSICAL EXAM AT DISCHARGE General Appearance: positive: Alert, Mild distress Eyes Bilateral: positive: PERRL, No lid inflammation ENT: positive: Pharynx nml, No signs of dehydration Neck: positive: No JVD, Trachea midline Respiratory: positive: Chest non-tender, No respiratory distress, Rhonchi (chronic baseline scattered crackles, no wheezing) Cardiovascular: positive: Regular rate & rhythm, No gallop, Systolic murmur, Decreased pulse(s) Peripheral Pulses: positive: 1+ Abdomen: positive: Non-tender, Nml bowel sounds, Other (rounded, soft) Back: positive: Other (ongoing rash which comes and goes, still without itching) Skin: positive: Warm, Dry, Other (torso rash both anterior & posterior, redness where his ANTONIA stockings were, skin tear on left forearm) Extremities: positive: Non-tender, Pedal edema (BLE edema, pitting in ankles +1), Joint swelling Neurologic/Psychiatric: positive: Oriented x3, CN's nml (2-12), Motor nml, Weakness, Sensory loss, Depressed mood/affect Reflexes: Bicep (R): 3+, Bicep (L): 3+, Ankle (R): 2+, Ankle (L): 2+ - LABS Result Diagrams: 08/11/19 05:40 08/11/19 05:40 - SEPSIS Current Stage of Sepsis: Resolved - FOLLOW UP Follow Up: See PCP within one week, new rash that is controlled with benadryl which should be followed up on (thought to be caused by Bactrim) Outpatient Colonoscopy Outpatient sleep study Sterile Supervisor Ongoing Palliative care - TIME SPENT Time Spent in Discharge (Minutes): 55"
[2019-08-11] MEDS ORDERED: atenoloL 25 MG TABLET PO SCH (12:29)
[2019-08-11 13:11] VITALS: BP 148/123
== END 2019-08-11 14:09 | disposition home or self-care (01) | DRG 377 ==
LOC: EDUNIT# → ED 04:58 → MS2 06:56
PROVIDERS: ADMIT Specialist; ATTEND Nurse Practitioner
DX: K92.1 Melena (principal); E43 Unspecified severe protein-calorie malnutrition; D62 Acute posthemorrhagic anemia; A04.72 Enterocolitis due to Clostridium difficile, not specified as recurrent; D68.32 Hemorrhagic disorder due to extrinsic circulating anticoagulants; F10.288 Alcohol dependence with other alcohol-induced disorder; J44.1 Chronic obstructive pulmonary disease with (acute) exacerbation; B37.0 Candidal stomatitis; T45.515A Adverse effect of anticoagulants, initial encounter; K52.89 Other specified noninfective gastroenteritis and colitis; N40.0 Benign prostatic hyperplasia without lower urinary tract symptoms; N30.90 Cystitis, unspecified without hematuria; R62.7 Adult failure to thrive; F43.12 Post-traumatic stress disorder, chronic; R25.1 Tremor, unspecified; L27.0 Generalized skin eruption due to drugs and medicaments taken internally; T36.8X5A Adverse effect of other systemic antibiotics, initial encounter; Y92.230 Patient room in hospital as the place of occurrence of the external cause; I27.20 Pulmonary hypertension, unspecified; R60.0 Localized edema; R59.0 Localized enlarged lymph nodes; T38.0X6A Underdosing of glucocorticoids and synthetic analogues, initial encounter; Z91.128 Patient's intentional underdosing of medication regimen for other reason; Y92.009 Unspecified place in unspecified non-institutional (private) residence as the place of occurrence of the external cause; B96.20 Unspecified Escherichia coli [E. coli] as the cause of diseases classified elsewhere; B96.89 Other specified bacterial agents as the cause of diseases classified elsewhere; I10 Essential (primary) hypertension; K21.9 Gastro-esophageal reflux disease without esophagitis; F32.9 Major depressive disorder, single episode, unspecified; F41.0 Panic disorder [episodic paroxysmal anxiety]; R41.3 Other amnesia; D53.9 Nutritional anemia, unspecified; E83.42 Hypomagnesemia; E86.0 Dehydration; K06.8 Other specified disorders of gingiva and edentulous alveolar ridge; M80.08XG Age-related osteoporosis with current pathological fracture, vertebra(e), subsequent encounter for fracture with delayed healing; S38.1XXS Crushing injury of abdomen, lower back, and pelvis, sequela; Z51.5 Encounter for palliative care; Z66 Do not resuscitate; Z86.010 Personal history of colon polyps; Z86.711 Personal history of pulmonary embolism; Z87.01 Personal history of pneumonia (recurrent); Z99.81 Dependence on supplemental oxygen; Z86.718 Personal history of other venous thrombosis and embolism; Z68.24 Body mass index [BMI] 24.0-24.9, adult; Z90.49 Acquired absence of other specified parts of digestive tract; Z90.81 Acquired absence of spleen; Z87.891 Personal history of nicotine dependence; Z79.52 Long term (current) use of systemic steroids; Z79.899 Other long term (current) drug therapy; Z79.01 Long term (current) use of anticoagulants; Z79.51 Long term (current) use of inhaled steroids; Z23 Encounter for immunization
CPT/HCPCS: 36415; 36430; 36600; 71045; 71046; 74177; 80048; 80053; 80069; 80306; 80320; 81001; 82040; 82272; 82607; 82705; 82728; 82746; 82803; 83540; 83605; 83615; 83630; 83690; 83735; 83880; 84100; 84155; 84466; 85025; 85027; 85045; 85610; 86850; 86900; 86901; 86920; 87040; 87045; 87046; 87077; 87086; 87181; 87493; 90686; 93306; 94640; 96374; 96375; 97110; 97161; 97166; 97530; 97535; 99222; 99284; 99285; A9270; J2354; J3411; J7040; J7512; J7626; J8499; P9016; Q9967; 81003; 82274

== ENCOUNTER 2019-12-08 16:33 | Outpatient (CLI) | payer OTHER | END 2019-12-08 16:34 | disposition critical access hospital (66) | LOC: EMS 16:33 | PROVIDERS: ATTEND Surgery | DX: S49.91XA Unspecified injury of right shoulder and upper arm, initial encounter (principal); S59.912A Unspecified injury of left forearm, initial encounter; R55 Syncope and collapse; W18.39XA Other fall on same level, initial encounter; Y92.039 Unspecified place in apartment as the place of occurrence of the external cause | CPT/HCPCS: A0425; A0429 ==